=== PATIENT | female | born 1935 | race Caucasian/White ===

== ENCOUNTER 2019-09-20 09:32 | Outpatient (CLI) | payer MEDICARE, SELFPAY ==
--- NOTE | ~2019-09-20 | CT_ITS ---
EXAMINATION: CT abdomen pelvis w con DATE: 09/20/2019 10:23 INDICATION: Malignant neoplasm of cecum. TECHNIQUE: Computed tomography (CT) of the abdomen and pelvis was performed with 100 mL Omnipaque 350 intravenous contrast. Automated exposure control and iterative reconstruction technique were employe d. The dose-length product was 1028.79 mGy-cm. COMPARISON: CT abdomen and pelvis 12/15/2018 FINDINGS: The visualized portions of the lung bases demonstrate mild atelectasis. No pleural effusion . Cardiomegaly is noted. There are coronary artery calcifications. No pericardial effusion. There are cysts in the liver measuring up to 10 mm. There are changes of cholecystectomy. The spleen, pancreas , and adrenal glands are normal. There are two 2 mm stones in right kidney. There are 3 stones in lef t kidney measuring up to 3 mm. There is a 4 mm stone in proximal left ureter. There is diverticulosis of the colon without evidence of diverticulitis. There are changes of right hemicolectomy. There is a small sliding hiatal hernia. There are no pathologically enlarged lymph nodes. There is no free int raperitoneal fluid. There is an old subcapital fracture of left femoral neck with fixation with 3 scr ews. There is lumbar levoscoliosis and severe spondylosis. IMPRESSION: 1. No evidence of metastatic disease. 2. 4 mm stone in proximal left ureter. No hydronephrosis. Small bilateral nonobstructing kidney stone s. Reviewed, dictated and finalized at location A. IMPRESSION: 1. No evidence of metastatic disease. 2. 4 mm stone in proximal left ureter. No hydronephrosis. Small bilateral nonob structing kidney stones.
[2019-09-20 10:10] LABS: Estimated Glomerular Filt Rate > 60
== END 2019-09-20 09:33 | disposition home or self-care (01) ==
PROVIDERS: PCP Family Medicine; Visit Provider Internal Medicine Hematology & Oncology
DX: C18.0 Malignant neoplasm of cecum (principal); N20.1 Calculus of ureter; N20.0 Calculus of kidney
CPT/HCPCS: 36415; 74177; Q9967

== ENCOUNTER 2019-09-26 11:13 | Emergency (ER) | payer MEDICARE, SELFPAY ==
--- NOTE | ~2019-09-26 | XR_ITS ---
XR foot RT min 3V 09/26/2019 11:40 Indication: Right foot pain Procedure: 4 views right foot Comparison: No prior studies for comparison. Findings: There is osteoarthritis of the right first MTP joint. There are third and fourth metatarsal neck fractures. Possible second metatarsal neck fracture. Lisfranc joint intact. Small linear foreig n body in the plantar soft tissues adjacent to the first metatarsal. There are degenerative changes o f the talonavicular joint. Impression: 1: Right third and fourth metatarsal neck fractures. Possible second metatarsal neck fracture. 2: Small linear foreign body plantar soft tissues adjacent to the first metatarsal. Reviewed, dictated and finalized at location B. Impression: 1: Right third and fourth metatarsal neck fractures. Possible second metatarsal neck fracture. 2: Small linear foreign body plantar soft tissues adjacent to the first metatar arabella.
[2019-09-26 11:26] VITALS: BP 124/87; PULSE 89; RESP 16; TEMP 36.5; O2SAT 99
--- NOTE | 2019-09-26 11:47 | ED.LOWEXIN ---
HPI - Extremity Injury (Lower) General Chief Complaint: Extremity Injury, Lower Stated Complaint: Foot injury Time Seen by Provider: 09/26/19 11:37 Source: patient and RN notes reviewed Mode of arrival: ambulatory Limitations: no limitations History of Present Illness HPI Narrative: Patient presents today with an injury to her right foot. She fell 1 week ago while at the hospital when she was getting into her car, injuring her foot. States she did fall onto her buttocks, and is unsure if she twisted her foot. Currently rates her pain 4/10, it increases with walking. Patient has bilateral neuropathy at baseline, which is worse with her current chemotherapy regimen. She has been taking Tylenol with some relief. MD complaint: foot injury Related Data Home Medications Medication Instructions Recorded Confirmed duloxetine 20 mg capsule,delayed 20 mg PO BID 01/17/19 09/26/19 release gabapentin 100 mg capsule 100 mg PO BID 01/17/19 09/26/19 B12 1 adwoa SUBLINGUAL DAILY 02/10/19 09/26/19 Calcium 600 + D(3) 1 cap PO DAILY 02/10/19 09/26/19 cholecalciferol (vitamin D3) 2,000 unit PO DAILY 02/10/19 09/26/19 [Vitamin D3] melatonin 3 mg PO HS 02/10/19 09/26/19 multivitamin 1 tablet PO DAILY 02/10/19 09/26/19 diltiazem HCl [Cartia XT] 240 mg DAILY 09/26/19 09/26/19 Allergies Allergy/AdvReac Type Severity Reaction Status Date / Time ibuprofen Allergy Severe BLEEDING Verified 09/26/19 11:18 ULCER pseudoephedrine AdvReac Mild N/V Verified 09/26/19 11:18 naproxen AdvReac Unknown ULCER Verified 09/26/19 11:18 Review of Systems Review of Systems: Narrative: CONSTITUTIONAL: Denies body aches, fever, chills, or sweats. EYES: Denies visual changes, redness, or discharge. ENT: Denies rhinorrhea, congestion, sore throat, or otalgia. CARDIOVASCULAR: Denies chest pain, palpitations, or edema. RESPIRATORY: Denies cough or dyspnea. GASTROINTESTINAL: Denies abdominal pain, nausea, vomiting, or diarrhea. GENITOURINARY: Denies dysuria or hematuria. SKIN: Denies rash, itching, or wounds. MUSCULOSKELETAL: Denies back pain, or myalgia. + Right foot injury NEUROLOGIC: Denies headache, numbness, tingling, or weakness. PSYCH: Denies depression or anxiety. [facility] Social History Social History Smoking status: Never smoker Second hand tobacco smoke exposure: No Alcohol intake: current Gender identity (if verbalized by the patient): Female Spiritual care concerns: No Comments At time of signature, I have reviewed and agree with nursing past medical, surgical, social and family history unless otherwise noted. Please see nursing chart for further information. There is no relevant family history pertinent to the presenting complaint Exam Narrative: Exam Narrative: GENERAL: Well-appearing, well-nourished, and in no acute distress. HEAD: Normocephalic, atraumatic. EYES: EOMI. No redness or drainage. Conjunctivae normal. ENT: Mucous membranes pink and moist. NECK: Normal AROM. CHEST: No respiratory distress. EXTREMITIES: Right foot: Tenderness to the lateral midfoot with 1+ pitting edema. Patient has ecchymosis to the base of all toes and in the arch of the foot. Distal sensation is intact. Capillary refill normal. Pedal pulse normal. Full AROM of toes and ankle. SKIN: Warm, dry, no rash. Capillary refill normal. Normal skin turgor. NEURO: No focal deficits. Alert and oriented x3. Gait steady with walker PSYCH: Normal affect. No signs of depression or anxiety. Course Vital Signs Vital signs: Vital Signs Temperature 97.7 F 09/26/19 11:26 Pulse Rate 89 09/26/19 11:26 Respiratory Rate 16 09/26/19 11:26 Blood Pressure 124/87 09/26/19 11:26 Pulse Oximetry 99 09/26/19 11:26 Temperature 97.7 F 09/26/19 11:26 Pulse Rate 89 09/26/19 11:26 Respiratory Rate 16 09/26/19 11:26 Blood Pressure 124/87 09/26/19 11:26 Pulse Oximetry 99
== END 2019-09-26 12:15 | disposition home or self-care (01) ==
PROVIDERS: Emergency Provider Nurse Practitioner; PCP Family Medicine
DX: S92.331A Displaced fracture of third metatarsal bone, right foot, initial encounter for closed fracture (principal); S92.341A Displaced fracture of fourth metatarsal bone, right foot, initial encounter for closed fracture; W19.XXXA Unspecified fall, initial encounter; E78.00 Pure hypercholesterolemia, unspecified; I10 Essential (primary) hypertension; M19.90 Unspecified osteoarthritis, unspecified site; Z85.038 Personal history of other malignant neoplasm of large intestine; G62.9 Polyneuropathy, unspecified
CPT/HCPCS: 73630; 99214; G0463

== ENCOUNTER 2019-12-16 01:29 | Outpatient (CLI) | payer MEDICARE, SELFPAY ==
[2019-12-16 17:59] LABS: SARS-CoV-2 RNA PCR Negative
== END 2019-12-16 01:30 | disposition home or self-care (01) ==
LOC: ANHCOVIDDT 01:29
PROVIDERS: PCP Family Medicine; Visit Provider Internal Medicine Gastroenterology
DX: Z01.812 Encounter for preprocedural laboratory examination (principal); Z20.828 Contact with and (suspected) exposure to other viral communicable diseases
CPT/HCPCS: 87635; C9803; U0003

== ENCOUNTER 2019-12-19 00:47 | Day surgery (SDC) | payer MEDICARE, SELFPAY ==
[2019-12-13 09:43] VITALS: BMI 30.6
--- NOTE | 2019-12-17 10:14 | WPDANESEPP ---
Anes - Eval Pre Procedure Procedure: Operation Date: 12/19/19 07:30 Proposed Procedures p Screening Colonoscopy - Sherwin Hein MD Date/Time: 12/17/19 10:14 Pre Op Diagnosis: Neoplasm Screening/Hx Colon Ca Patient Data Age: 84 Gender: F Height: 1.7 m Weight: 88.6 kg Allergies Allergy/AdvReac Type Severity Reaction Status Date / Time ibuprofen Allergy Severe BLEEDING Verified 12/13/19 08:59 ULCER pseudoephedrine AdvReac Mild N/V Verified 12/13/19 08:59 naproxen AdvReac Unknown ULCER Verified 12/13/19 08:59 Home Medications Medication Instructions Recorded Confirmed Type duloxetine 20 mg capsule,delayed 20 mg PO BID 01/17/19 12/13/19 History release ferrous sulfate 325 mg (65 mg 325 mg PO BID #180 tablet 02/07/19 12/13/19 Rx iron) tablet B12 1 adwoa SUBLINGUAL DAILY 02/10/19 12/13/19 History Calcium 600 + D(3) 1 cap PO DAILY 02/10/19 12/13/19 History cholecalciferol (vitamin D3) 2,000 unit PO DAILY 02/10/19 12/13/19 History [Vitamin D3] melatonin 3 mg PO HS 02/10/19 12/13/19 History multivitamin 1 tablet PO DAILY 02/10/19 12/13/19 History diltiazem HCl [Cartia XT] 240 mg DAILY 09/26/19 12/13/19 History pregabalin 100 mg capsule 100 mg PO BID 10/25/19 12/13/19 History atorvastatin 10 mg PO DAILY 12/13/19 12/13/19 History omeprazole magnesium [Prilosec OTC] 20 mg PO DAILY 12/13/19 12/13/19 History ropinirole 0.5 mg PO DAILY 12/13/19 12/13/19 History Patient hx anesthesia problems: none Family hx anesthesia problems: none PMFSH Past Medical History Medical History Arthritis Cataract left Chronic low back pain Constipation Diarrhea Dyslipidemia Glaucoma History of kidney stones History of stress test negative 15 years ago HLD (hyperlipidemia) HTN (hypertension) Idiopathic peripheral neuropathy Osteoarthritis Peptic ulcer 2002 RLS (restless legs syndrome) Shortness of breath Vitamin D deficiency Surgical History Surgical History History of appendectomy History of cholecystectomy Lap ester with IOC- 01-06-19 History of right hemicolectomy Right hemicolectomy with anastomosis distal ileum to transverse colon- 01/06/19 Hx of hysterectomy, total Family History Family History Father Hypertension Family history of cardiovascular disease Mother Family history of cardiovascular disease Sibling Family history of cardiovascular disease Other Arthritis Social History Social History Smoking status: Never smoker Second hand tobacco smoke exposure: No Alcohol intake: never Substance use: never Substance use type: does not use Gender identity (if verbalized by the patient): Female Spiritual care concerns: No Exam Day of Procedure 12/17/19 10:14
[2019-12-19 06:26] VITALS: BP 127/69; PULSE 103; RESP 18; TEMP 36.8; O2SAT 99
[2019-12-19] MEDS: LACTATED RINGERS 1,000 ML 150 ML IV CONT (06:52)
--- NOTE | 2019-12-19 07:06 | WPDANESEPPF ---
Anes - Initial Pre Proc Eval Procedure: Operation Date: 12/19/19 07:30 Proposed Procedures p Screening Colonoscopy - Sherwin Hein MD Date/Time: 12/19/19 07:06 Surgeon: Sherwin Hein MD Pre Op Diagnosis: Neoplasm Screening/Hx Colon Ca Patient Data Age: 84 Gender: F Height: 5 ft 7 in Weight: 95 kg Last Vital Signs Temp 98.2 F 12/19/19 06:26 Pulse 103 H 12/19/19 06:26 Resp 18 12/19/19 06:26 BP 127/69 12/19/19 06:26 Pulse Ox 99 12/19/19 06:26 Allergies Allergy/AdvReac Type Severity Reaction Status Date / Time ibuprofen Allergy Severe BLEEDING Verified 12/19/19 06:24 ULCER pseudoephedrine AdvReac Mild N/V Verified 12/19/19 06:24 naproxen AdvReac Unknown ULCER Verified 12/19/19 06:24 Home Medications Medication Instructions Recorded Confirmed Type duloxetine 20 mg capsule,delayed 20 mg PO BID 01/17/19 12/13/19 History release ferrous sulfate 325 mg (65 mg 325 mg PO BID #180 tablet 02/07/19 12/13/19 Rx iron) tablet B12 1 adwoa SUBLINGUAL DAILY 02/10/19 12/13/19 History Calcium 600 + D(3) 1 cap PO DAILY 02/10/19 12/13/19 History cholecalciferol (vitamin D3) 2,000 unit PO DAILY 02/10/19 12/13/19 History [Vitamin D3] melatonin 3 mg PO HS 02/10/19 12/13/19 History multivitamin 1 tablet PO DAILY 02/10/19 12/13/19 History diltiazem HCl [Cartia XT] 240 mg DAILY 09/26/19 12/13/19 History pregabalin 100 mg capsule 100 mg PO BID 10/25/19 12/13/19 History atorvastatin 10 mg PO DAILY 12/13/19 12/19/19 History omeprazole magnesium [Prilosec OTC] 20 mg PO DAILY 12/13/19 12/13/19 History ropinirole 0.5 mg PO DAILY 12/13/19 12/13/19 History Patient hx anesthesia problems: none Family hx anesthesia problems: none PMFSH Past Medical History Medical History Arthritis Cataract left Chronic low back pain Constipation Diarrhea Dyslipidemia Glaucoma History of kidney stones History of stress test negative 15 years ago HLD (hyperlipidemia) HTN (hypertension) Idiopathic peripheral neuropathy Osteoarthritis Peptic ulcer 2002 RLS (restless legs syndrome) Shortness of breath Vitamin D deficiency Surgical History Surgical History History of appendectomy History of cholecystectomy Lap ester with IOC- 01-06-19 History of right hemicolectomy Right hemicolectomy with anastomosis distal ileum to transverse colon- 01/06/19 Hx of hysterectomy, total Family History Family History Father Hypertension Family history of cardiovascular disease Mother Family history of cardiovascular disease Sibling Family history of cardiovascular disease Other Arthritis Social History Social History Smoking status: Never smoker Second hand tobacco smoke exposure: No Alcohol intake: never Substance use: never Substance use type: does not use Living arrangements: alone Gender identity (if verbalized by the patient): Female Spiritual care concerns: No Anes - Eval Final PreProcedure Day of Procedure 12/19/19 07:06 Patient weight: obese Heart: regular rate and rhythm Lungs: clear to auscultation Airway: Mallampati scale class II Neurological: alert and oriented ASA classification: III Emergent: no Anesthetic plan: proceed Anesthesia type and monitoring: general GIVS and standard monitoring Informed Consent: The patient's anesthetic plan and its attendant risks and benefits were discussed with the patient/family/POA. Questions were solicited and answers provided to the satisfaction of the patient/family/POA.
--- NOTE | 2019-12-19 07:34 | PM.HPGS ---
History of Present Illness History of Present Illness Consent: Risks, benefits, and alternatives have been discussed and questions answered. Patient agrees to proceed with procedure. Chief complaint: Neoplasm Screening/Hx Colon Ca Narrative: Rosy Alexander is a 84 year old female with right sided colon cancer last year s/p surgery and chemotherapy Review of Systems Constitutional: Constitutional: Denies headache(s) and Denies weakness Eyes: Eyes: Denies blurry vision ENT: Reports Normal hearing present, Denies headache(s) and Denies neck pain Cardiovascular: Cardiovascular: Denies chest pain and Denies dyspnea Respiratory: Respiratory: Denies dyspnea Gastrointestinal: Gastrointestinal: Reports no additional gastrointestinal complaints Genitourinary: Genitourinary: Denies dysuria Musculoskeletal: Musculoskeletal: Denies neck pain Integumentary/Breasts: Skin/Breast: Denies dry skin Neurologic: Reports Normal hearing present, Denies headache(s) and Denies weakness Psychiatric: Psychiatric: Denies anxiety Endocrine: Endocrine: Denies change in body appearance Hematologic/Lymphatic: Hematologic/Lymphatic: Denies easy bleeding Allergic/Immunologic: Allergic/Immunologic: Denies urticaria PMFSH Past Medical History Medical History Arthritis Cataract left Chronic low back pain Constipation Diarrhea Dyslipidemia Glaucoma History of kidney stones History of stress test negative 15 years ago HLD (hyperlipidemia) HTN (hypertension) Idiopathic peripheral neuropathy Osteoarthritis Peptic ulcer 2002 RLS (restless legs syndrome) Shortness of breath Vitamin D deficiency Surgical History Surgical History History of appendectomy History of cholecystectomy Lap ester with IOC- 01-06-19 History of right hemicolectomy Right hemicolectomy with anastomosis distal ileum to transverse colon- 01/06/19 Hx of hysterectomy, total Family History Family History Father Hypertension Family history of cardiovascular disease Mother Family history of cardiovascular disease Sibling Family history of cardiovascular disease Other Arthritis Social History Social History Smoking status: Never smoker Second hand tobacco smoke exposure: No Alcohol intake: never Substance use: never Substance use type: does not use Living arrangements: alone Gender identity (if verbalized by the patient): Female Spiritual care concerns: No Meds Home Medications and Allergies Home Medications Medication Instructions Recorded Confirmed Type duloxetine 20 mg capsule,delayed 20 mg PO BID 01/17/19 12/13/19 History release ferrous sulfate 325 mg (65 mg 325 mg PO BID #180 tablet 02/07/19 12/13/19 Rx iron) tablet B12 1 adwoa SUBLINGUAL DAILY 02/10/19 12/13/19 History Calcium 600 + D(3) 1 cap PO DAILY 02/10/19 12/13/19 History cholecalciferol (vitamin D3) 2,000 unit PO DAILY 02/10/19 12/13/19 History [Vitamin D3] melatonin 3 mg PO HS 02/10/19 12/13/19 History multivitamin 1 tablet PO DAILY 02/10/19 12/13/19 History diltiazem HCl [Cartia XT] 240 mg DAILY 09/26/19 12/13/19 History pregabalin 100 mg capsule 100 mg PO BID 10/25/19 12/13/19 History atorvastatin 10 mg PO DAILY 12/13/19 12/19/19 History omeprazole magnesium [Prilosec OTC] 20 mg PO DAILY 12/13/19 12/13/19 History ropinirole 0.5 mg PO DAILY 12/13/19 12/13/19 History Allergies Allergy/AdvReac Type Severity Reaction Status Date / Time ibuprofen Allergy Severe BLEEDING Verified 12/19/19 06:24 ULCER pseudoephedrine AdvReac Mild N/V Verified 12/19/19 06:24 naproxen AdvReac Unknown ULCER Verified 12/19/19 06:24 Vital Signs Vital Signs - 24 hr 12/19/19 06:26 Temperature 98.2 F Pulse Rate 103 H Respiratory Rate 18
[2019-12-19 08:04] VITALS: BP 130/72; PULSE 86; RESP 24; O2SAT 97
[2019-12-19 08:14] VITALS: BP 164/95; PULSE 84; RESP 20; O2SAT 99
[2019-12-19 08:24] VITALS: BP 172/94; PULSE 87; RESP 16; O2SAT 98
== END 2019-12-19 08:36 | disposition home or self-care (01) ==
PROVIDERS: PCP Family Medicine; Visit Provider Internal Medicine Gastroenterology
PROC: 0DJD8ZZ Inspection of Lower Intestinal Tract, Via Natural or Artificial Opening Endoscopic (ICD-10-PCS; CPT 45378; principal; 2019-12-19 07:30)
DX: Z12.11 Encounter for screening for malignant neoplasm of colon (principal); D12.5 Benign neoplasm of sigmoid colon; K57.30 Diverticulosis of large intestine without perforation or abscess without bleeding; Z85.038 Personal history of other malignant neoplasm of large intestine; Z90.49 Acquired absence of other specified parts of digestive tract; Z98.0 Intestinal bypass and anastomosis status; Z92.21 Personal history of antineoplastic chemotherapy; I10 Essential (primary) hypertension; E78.5 Hyperlipidemia, unspecified; H40.9 Unspecified glaucoma; G62.9 Polyneuropathy, unspecified; E55.9 Vitamin D deficiency, unspecified; G25.81 Restless legs syndrome; Z87.11 Personal history of peptic ulcer disease
CPT/HCPCS: 45381; 45385; 88305; J2704; J7120

== ENCOUNTER 2020-04-23 13:26 | Outpatient (CLI) | payer MEDICARE, SELFPAY ==
[2020-04-23 14:34] LABS: Hematocrit 39.4 % (37.0-47.0); Hemoglobin 12.3 g/dL (12.0-15.0); Mean Corpuscular HGB Conc 31.2 g/dl (32-36); Mean Corpuscular Hemoglobin 30.4 pg (26-34); Mean Corpuscular Volume 97.3 fl (80-100); Mean Platelet Volume 10.2 fl (7.4-10.4); Platelet Count Result 253 k/mm3 (150-375); Red Blood Count 4.05 M/mm3 (4.2-5.4); Red Cell Distribution Width 13.8 % (11.5-14.5); White Blood Count 5.9 K/mm3 (4.5-10.0)
[2020-04-23 17:42] LABS: Alanine Aminotransferase 19 U/L (4-35); Albumin Level 3.7 g/dL (3.5-5.1); Alkaline Phosphatase 140 U/L (38-126); Anion Gap 5 mmol/L (8-16); Aspartate Amino Transferase 31 U/L (14-36); Bilirubin,Total 0.5 mg/dL (0.2-1.3); Blood Urea Nitrogen 16 mg/dL (7-17); Calcium 9.3 mg/dL (8.4-10.2); Carbon Dioxide 29 mmol/L (22-30); Chloride 109 mmol/L (98-107); Cholesterol 162 mg/dL (0-200); Estimated Glomerular Filt Rate > 60; Glucose 93 mg/dL (65-105); HDL Direct 48 mg/dL; Potassium 4.6 mmol/L (3.4-5.0); Sodium 143 mmol/L (137-145); Triglycerides 171 mg/dL (<150)
[2020-04-23 17:53] LABS: LDL Cholesterol Direct 83 mg/dL
== END 2020-04-23 13:27 | disposition home or self-care (01) ==
LOC: ANHLAB 13:28
PROVIDERS: PCP Family Medicine; Visit Provider Nurse Practitioner Family
DX: E78.5 Hyperlipidemia, unspecified (principal); I10 Essential (primary) hypertension
CPT/HCPCS: 36415; 80053; 80061; 85027

== ENCOUNTER 2020-09-13 14:06 | Emergency (ER) | payer MEDICARE, SELFPAY ==
--- NOTE | ~2020-09-13 | XR_ITS ---
EXAMINATION: XR ankle LT min 3V DATE: 09/13/2020 15:14 INDICATION: Left ankle pain, initial encounter TECHNIQUE: Anteroposterior, lateral, mortise, and additional oblique view of the ankle were obtained. COMPARISON: None. FINDINGS: There is an acute, traumatic, closed, oblique fracture of the distal fibula which ends appr oximately 1.5 cm above the tibial plafond. Alignment at the ankle is normal. No additional acute osse ous abnormality is identified. Soft tissue swelling is seen at the fracture site. Calcified atheroscl erosis is noted. There is advanced osteoarthritis of the midfoot. IMPRESSION: 1. Acute, oblique fracture of the distal fibula above the level of the tibial plafond. Reviewed, dictated and finalized at location B. IMPRESSION: 1. Acute, oblique fracture of the distal fibula above the level of the tibial p inder.
[2020-09-13 14:15] VITALS: BP 109/48; PULSE 67; RESP 17; TEMP 35.9; O2SAT 97
--- NOTE | 2020-09-13 15:22 | ED.LOWEXIN ---
HPI - Extremity Injury (Lower) General Chief Complaint: Extremity Injury, Lower Stated Complaint: Left foot and ankle pain Time Seen by Provider: 09/13/20 14:49 Source: patient, family and RN notes reviewed Mode of arrival: wheelchair Limitations: no limitations History of Present Illness HPI Narrative: Patient and daughter present today complaining of left ankle pain. Patient fell just prior to arrival while coming down a curb. Reports her legs folded underneath her as she fell. Denies numbness or tingling in the leg or foot. Rates her pain 4/10, which increases with movement or touching. History of restless leg syndrome, neuropathy, previous hip fracture. MD complaint: ankle injury Related Data Home Medications Medication Instructions Recorded Confirmed duloxetine 20 mg capsule,delayed 20 mg PO BID 01/17/19 04/22/20 release B12 1 adwoa SUBLINGUAL DAILY 02/10/19 04/22/20 Calcium 600 + D(3) 1 cap PO DAILY 02/10/19 04/22/20 cholecalciferol (vitamin D3) 2,000 unit PO DAILY 02/10/19 04/22/20 [Vitamin D3] melatonin 3 mg PO HS 02/10/19 04/22/20 multivitamin 1 tablet PO DAILY 02/10/19 04/22/20 pregabalin 100 mg capsule 100 mg PO BID 10/25/19 04/22/20 omeprazole magnesium [Prilosec OTC] 20 mg PO DAILY 12/13/19 04/22/20 diltiazem HCl [Cartia XT] 1 mg PO DAILY 09/13/20 09/13/20 ropinirole 1 mg PO TID 09/13/20 09/13/20 Allergies Allergy/AdvReac Type Severity Reaction Status Date / Time ibuprofen Allergy Severe BLEEDING Verified 09/13/20 14:28 ULCER pseudoephedrine AdvReac Mild N/V Verified 09/13/20 14:28 naproxen AdvReac Unknown ULCER Verified 09/13/20 14:28 Review of Systems Review of Systems: Narrative: CONSTITUTIONAL: Denies body aches, fever, chills, or sweats. EYES: Denies visual changes, redness, or discharge. ENT: Denies rhinorrhea, congestion, sore throat, or otalgia. CARDIOVASCULAR: Denies chest pain, palpitations, or edema. RESPIRATORY: Denies cough or dyspnea. GASTROINTESTINAL: Denies abdominal pain, nausea, vomiting, or diarrhea. GENITOURINARY: Denies dysuria or hematuria. SKIN: Denies rash, itching, or wounds. MUSCULOSKELETAL: Denies back pain, or myalgia. + Left ankle injury NEUROLOGIC: Denies headache, numbness, tingling, or weakness. PSYCH: Denies depression or anxiety. [facility] Past Medical History Medical History Arthritis Cataract left Chronic low back pain Constipation Diarrhea Dyslipidemia Frequent falls Glaucoma History of kidney stones History of stress test negative 15 years ago HLD (hyperlipidemia) HTN (hypertension) Idiopathic peripheral neuropathy Osteoarthritis Peptic ulcer 2002 RLS (restless legs syndrome) Shortness of breath Stress incontinence Vitamin D deficiency Surgical History Surgical History History of appendectomy History of cholecystectomy Lap ester with IOC- 01-06-19 History of right hemicolectomy Right hemicolectomy with anastomosis distal ileum to transverse colon- 01/06/19 Hx of hysterectomy, total Family History Family History Father Hypertension Family history of cardiovascular disease Mother Family history of cardiovascular disease Sibling Family history of cardiovascular disease Other Arthritis Social History Social History Smoking status: Never smoker Second hand tobacco smoke exposure: No Alcohol intake: never Substance use: never Substance use type: does not use Gender identity (if verbalized by the patient): Female Spiritual care concerns: No Comments At time of signature, I have reviewed and agree with nursing past medical, surgical, social and family history unless otherwise noted. Please see nursing chart for further information. There is no relevant family history mario
== END 2020-09-13 15:43 | disposition home or self-care (01) ==
PROVIDERS: Emergency Provider Nurse Practitioner; PCP Family Medicine
DX: S82.832A Other fracture of upper and lower end of left fibula, initial encounter for closed fracture (principal); W10.1XXA Fall (on)(from) sidewalk curb, initial encounter; M19.90 Unspecified osteoarthritis, unspecified site; E78.5 Hyperlipidemia, unspecified; I10 Essential (primary) hypertension; G60.9 Hereditary and idiopathic neuropathy, unspecified; E55.9 Vitamin D deficiency, unspecified
CPT/HCPCS: 73610; 99213; G0463

== ENCOUNTER 2020-09-19 19:14 | Inpatient (IN) | payer MEDICARE, SELFPAY ==
--- NOTE | ~2020-09-19 | XR_ITS ---
EXAMINATION: XR surgery orthopedic DATE: 09/21/2020 09:54 INDICATION: Distal left fibula fracture. TECHNIQUE: 7 intraoperative fluoroscopic views of left ankle were obtained. I was not present. Fluoro scopy exposure time was 50 seconds. COMPARISON: Left ankle radiographs 09/13/2020 FINDINGS: There is an oblique fracture of distal fibula with internal fixation with semitubular plate and multiple screws. There is a syndesmosis fixation band. Ankle mortise is normal. IMPRESSION: 1. Oblique fracture of distal fibula in near-anatomic alignment status post open reduction internal f ixation. 2. Internal fixation of the tibiofibular syndesmosis. Reviewed, dictated and finalized at location A. IMPRESSION: 1. Oblique fracture of distal fibula in near-anatomic alignment status post ope n reduction internal fixation. 2. Internal fixation of the tibiofibular syndesmosis.
--- NOTE | ~2020-09-19 | XR_ITS ---
XR chest 1V portable 09/19/2020 20:32 Indication: Preop x-ray. Hypertension. Reflux. Procedure: AP portable chest Comparison: Comparison to multiple prior studies sequentially, with oldest reviewed study dated 08/28. Findings: Portacatheter tip in the SVC. Heart size is normal. Right basilar infiltrates. No pleural e ffusion, edema or pneumothorax. Calcified granuloma left upper lung. Impression: 1: Right basilar infiltrates may represent atelectasis or developing pneumonia. Reviewed, dictated and finalized at location A. Impression: 1: Right basilar infiltrates may represent atelectasis or developing pneumonia.
--- NOTE | 2020-09-19 19:03 | ADMGEN ---
This patient, Rosy Alexander, was admitted to Medical Room 254-01. Patient/family oriented to hospital policies and general routines including ID bracelet, bed and alarms, visiting hours, pain management, procedures, bathroom and other care routines, personal items, smoking policy, room service/diet, and visiting hours. Information on how to activate the Rapid Response Team has been discussed. Patient/Family are encouraged to report perceived risks to care and to ask questions if they do not understand what they are told or what they should do.
--- NOTE | 2020-09-19 19:45 | PM.IMHP ---
H&P: HPI History of Present Illness Date/Time: 09/19/20 19:45 Chief Complaint: Unstable left ankle fracture. Narrative: This is an 85-year-old female with history of colon cancer in 2019 status post partial colectomy and chemotherapy, GERD with history of peptic ulcer disease, iron deficiency anemia, idiopathic peripheral neuropathy, restless leg syndrome, dyslipidemia, and hypertension whom the hospitalist service has been asked to directly admit after she was found to have an unstable left ankle fracture. She was seen at [facility] on 09/13/2020 with complaints of left ankle pain after she lost her balance and fell off of a curb. X-ray showed an acute, oblique fracture of the distal fibula above the level of the tibial plafond and at that time she was told to proceed to [facility] to purchase a walking boot until she could follow-up with Dr. Sin in the office. She has been bearing weight on that ankle since that time, and reports quite a bit of pain and swelling at the site. Today she finally got an appointment with Dr. Sin and she is now being admitted due to an unstable fracture. Her pain has been well controlled with Tylenol at home. She denies any other injury in the fall. No paresthesias, skin color, or temperature changes of the affected extremity. Review of Systems Review of Systems: Narrative: Twelve systems were reviewed with pertinent positives and negatives as per HPI. Patient reports having an episode of chest pain about 15 years ago while walking up a hill and had a subsequent cardiac catheterization done at [facility] due to an abnormal stress test. At that time the patient was told she had minimal to no blockage in her coronaries and she has not had any issues with chest pain since that time. She specifically denies exertional chest pain and shortness of breath. No nausea, vomiting, or sweats. No orthopnea, PND, or significant lower extremity edema. She has not had any recent cold or flu symptoms. She is fully vaccinated for COVID-19. Except as documented, all other systems were reviewed and are negative. [facility] Past Medical History Medical History Arthritis Cataract left Chronic anemia Chronic low back pain Colon cancer (12/2018) Status post partial colectomy and chemotherapy. Dyslipidemia Frequent falls Gastroesophageal reflux disease Glaucoma History of kidney stones History of stress test Negative stress test around 2004. Hypertension Idiopathic peripheral neuropathy Osteoarthritis Peptic ulcer (2002) Restless leg syndrome Stress incontinence Vitamin D deficiency Surgical History Surgical History (Updated 09/19/20 @ 20:05 by Orin Arce PA-C) History of appendectomy History of cholecystectomy (01/06/19) Laparoscopic cholecystectomy with IOC. History of lithotripsy History of orthopedic surgery Pinning left hip fracture. History of right hemicolectomy (01/06/19) Right hemicolectomy with anastomosis distal ileum to transverse colon. History of total hysterectomy Family History Family History Father Hypertension Family history of cardiovascular disease Mother Family history of cardiovascular disease Sibling Family history of cardiovascular disease Other Arthritis Social History Social History (Updated 09/19/20 @ 22:45 by Orin Arce PA-C) Social History: Surrogate decision maker: Daphne Kelly, daughter. Code status: Full code. Smoking status: Never smoker Second hand tobacco smoke exposure: No Alcohol intake: never Substance use: never Substance use type: does not use Additional living arrangements comments: The patient lives in her own home in [place]. 2 grown children. Additional occupation/education comments: Retired. Meds Home Medications and Allergies Home Medications Medica
--- NOTE | 2020-09-19 20:11 | ECG_ITS ---
Measurements Intervals [place] Rate: 79 P: 62 [place]: 191 QRS: -12 QRSD: 85 T: 19 QT: 396 QTc: 455 Interpretive Statements SINUS RHYTHM EARLY PRECORDIAL R/S TRANSITION LEFT VENTRICULAR HYPERTROPHY BORDERLINE ECG Electronically Signed On 09-20-2020 6:28:30 CDT by Cruz Barragan D.O.
[2020-09-19 20:19] VITALS: BP 163/74; PULSE 80; RESP 20; TEMP 36.1; O2SAT 100
[2020-09-19 21:42] LABS: Hematocrit 41.4 % (37.0-47.0); Hemoglobin 12.8 g/dL (12.0-15.0); Mean Corpuscular HGB Conc 30.9 g/dl (32-36); Mean Corpuscular Hemoglobin 30.2 pg (26-34); Mean Corpuscular Volume 97.6 fl (80-100); Mean Platelet Volume 11.2 fl (7.4-10.4); Platelet Count Result 240 k/mm3 (150-375); Red Blood Count 4.24 M/mm3 (4.2-5.4); Red Cell Distribution Width 14.3 % (11.5-14.5); White Blood Count 6.6 K/mm3 (4.5-10.0)
[2020-09-19 21:53] LABS: Alanine Aminotransferase 139 U/L (4-35); Albumin Level 4.1 g/dL (3.5-5.1); Alkaline Phosphatase 306 U/L (38-126); Anion Gap 4 mmol/L (8-16); Aspartate Amino Transferase 104 U/L (14-36); Bilirubin,Total 0.8 mg/dL (0.2-1.3); Blood Urea Nitrogen 16 mg/dL (7-17); Calcium 9.3 mg/dL (8.4-10.2); Carbon Dioxide 32 mmol/L (22-30); Chloride 104 mmol/L (98-107); Estimated Glomerular Filt Rate > 60; Glucose 107 mg/dL (65-105); Magnesium 2.1 mg/dL (1.6-2.3); Potassium 3.8 mmol/L (3.4-5.0); Sodium 140 mmol/L (137-145)
[2020-09-19] MEDS: MELATONIN 3 MG TABLET PO (21:57)
[2020-09-19 23:30] LABS: Acetaminophen < 10 ug/mL (10-30)
[2020-09-20 05:13] VITALS: BP 145/61; PULSE 69; RESP 22; TEMP 36.5; O2SAT 95
[2020-09-20 05:57] LABS: INR 1.1; Partial Thromboplastin Time 29.2 SECONDS (22.3-36.8); Prothrombin Time 13.6 Seconds (11.1-14.7)
[2020-09-20 05:58] LABS: Alanine Aminotransferase 99 U/L (4-35); Albumin Level 3.5 g/dL (3.5-5.1); Alkaline Phosphatase 255 U/L (38-126); Anion Gap 6 mmol/L (8-16); Aspartate Amino Transferase 65 U/L (14-36); Bilirubin,Total 0.7 mg/dL (0.2-1.3); Blood Urea Nitrogen 17 mg/dL (7-17); Calcium 8.8 mg/dL (8.4-10.2); Carbon Dioxide 29 mmol/L (22-30); Chloride 104 mmol/L (98-107); Estimated Glomerular Filt Rate > 60; Glucose 97 mg/dL (65-105); Potassium 4.2 mmol/L (3.4-5.0); Sodium 139 mmol/L (137-145)
--- NOTE | 2020-09-20 07:09 | PM.CNOR ---
Assessment and Plan Additional Plan Patient is non stable left lateral malleolus fracture. Again this needs to be fixed surgically because of the instability. This point patient is in a Cam walker boot and she is at bedrest only get up to use a bedside commode. We are going to work on getting his swelling down. Also have her evaluated by the hospitalist as well as Cardiology surgical clearance. Once the swelling is improved to the point would be safe to proceed we will work on getting surgery done on the ankle. Patient is going to need rehabilitation facility after surgery. We will work on this as well. Surgical procedures well as the risks and complications were discussed at our office on 09/[address] Sin. History of Present Illness HPI Consult date: 09/20/20 Chief complaint: Unstable Ankle Fx LT PMFSH Past Medical History Medical History Arthritis Cataract left Chronic anemia Chronic low back pain Colon cancer (12/2018) Status post partial colectomy and chemotherapy. Dyslipidemia Frequent falls Gastroesophageal reflux disease Glaucoma History of kidney stones History of stress test Negative stress test around 2004. Hypertension Idiopathic peripheral neuropathy Osteoarthritis Peptic ulcer (2002) Restless leg syndrome Stress incontinence Vitamin D deficiency Surgical History Surgical History (Updated 09/19/20 @ 20:05 by Orin Arce PA-C) History of appendectomy History of cholecystectomy (01/06/19) Laparoscopic cholecystectomy with IOC. History of lithotripsy History of orthopedic surgery Pinning left hip fracture. History of right hemicolectomy (01/06/19) Right hemicolectomy with anastomosis distal ileum to transverse colon. History of total hysterectomy Family History Family History Father Hypertension Family history of cardiovascular disease Mother Family history of cardiovascular disease Sibling Family history of cardiovascular disease Other Arthritis Social History Social History (Updated 09/19/20 @ 22:45 by Orin Arce PA-C) Social History: Surrogate decision maker: Daphne Kelly, daughter. Code status: Full code. Smoking status: Never smoker Second hand tobacco smoke exposure: No Alcohol intake: never Substance use: never Substance use type: does not use Additional living arrangements comments: The patient lives in her own home in [place]. 2 grown children. Additional occupation/education comments: Retired. Meds Home Medications and Allergies Home Medications Medication Instructions Recorded Confirmed Type duloxetine 20 mg capsule,delayed 20 mg PO BID 01/17/19 09/19/20 History release B12 1 adwoa SUBLINGUAL DAILY 02/10/19 09/19/20 History Calcium 600 + D(3) 1 cap PO DAILY 02/10/19 09/19/20 History cholecalciferol (vitamin D3) 2,000 unit PO DAILY 02/10/19 09/19/20 History [Vitamin D3] melatonin 3 mg PO HS 02/10/19 09/19/20 History multivitamin 1 tablet PO DAILY 02/10/19 09/19/20 History pregabalin 100 mg capsule 100 mg PO BID 10/25/19 09/19/20 History omeprazole magnesium [Prilosec OTC] 20 mg PO DAILY 12/13/19 09/19/20 History ferrous sulfate 325 mg (65 mg 325 mg PO DAILY #90 tablet 05/16/20 09/19/20 Rx iron) tablet oxybutynin chloride 10 mg 10 mg PO DAILY #90 tablet 08/20/20 09/19/20 Rx tablet,extended release 24 hr diltiazem HCl [Cartia XT] 1 mg PO DAILY 09/13/20 09/19/20 History ropinirole 1 mg PO TID 09/13/20 09/19/20 History atorvastatin 10 mg PO DAILY 09/19/20 09/19/20 History Allergies Allergy/AdvReac Type Severity Reaction Status Date / Time ibuprofen Allergy Severe BLEEDING Verified 09/13/20 14:28 ULCER pseudoephedrine AdvReac Mild N/V Verified 09/13/20 14:28 naproxen AdvReac Unknown ULCER Verified 09/13/20 14:28 Vital Signs Vital Signs - 24 hr 09/19/20 20:19 09/20/20
--- NOTE | 2020-09-20 07:17 | P.PNOP_ITS ---
Progress Note: A&P Additional Plan Patient was seen this morning. His swelling has significantly improved already in the left foot and ankle. She has wrinkling in the dorsum of the foot. The swelling in the toes is completely gone. She only has mild swelling in the ankle. She is having minimal to no pain while she is lying supine. Leg was elevated well. Have consult Cardiology for pre-surgical clearance. I will discuss with Dr. Sin this morning, concerning the significant improvement of the swelling in her foot ankle. Also skin is all intact around her ankle. There is no blistering noted. Subjective Subjective Date/Time Seen: 09/20/20 07:17 Objective Data Vital Signs Vital Signs: Vital Signs - 24 hr 09/19/20 20:19 09/20/20 05:13 Temperature 36.1 C L 36.5 C Pulse Rate 80 69 Respiratory Rate 20 22 H Blood Pressure 163/74 H 145/61 H Pulse Oximetry 100 95 Intake/Output Intake/Output: Intake & Output 09/17/20 09/18/20 09/19/20 09/20/20 23:59 23:59 23:59 23:59 Intake Total 300 Balance 300 Meds/Results Medications: Active Medications Generic Name Dose Route Start Last Admin Trade Name Freq PRN Reason Stop Dose Admin Atorvastatin Calcium 10 mg 09/20/20 21:00 Atorvastatin 10 Mg Tablet PO HS [facility] Calcium Carbonate 500 mg 09/20/20 09:00 Calcium/Vitamin D 500 Mg Tablet PO 10/20/20 09:01 DAILY [facility] Diltiazem HCl 240 mg 09/20/20 09:00 Diltiazem Hcl Cd 240 Mg Cap.Er.24h PO DAILY [facility] Duloxetine HCl 20 mg 09/20/20 09:00 Duloxetine Hcl 20 Mg Capsule.Dr PO Q12HR [facility] Enoxaparin Sodium 40 mg 09/20/20 09:00 Enoxaparin 40 Mg/0.4 Ml Syringe SUB-Q DAILY [facility] Ferrous Sulfate 324 mg 09/20/20 09:00 Ferrous Sulfate 324 Mg Tablet PO DAILY [facility] Melatonin 3 mg 09/19/20 21:00 09/19/20 21:57 Melatonin 3 Mg Tablet PO 3 mg HS [facility] Administration Multivitamins Therapeutic 1 tablet 09/20/20 09:00 Multivitamins Therapeutic Tab (*Bkc) PO DAILY [facility] Non-Formulary Medication 1 lozenge 09/20/20 09:00 Cyanocobalamin-Cobamamide [B12] SUBLINGUAL 10/20/20 09:01 DAILY [facility] Oxybutynin Chloride 10 mg 09/20/20 09:00 Oxybutynin Chloride Xl 5 Mg Tab.Er.24 PO DAILY [facility] Pantoprazole Sodium 40 mg 09/20/20 09:00 Pantoprazole 40 Mg Tablet PO 10/20/20 09:01 DAILY [facility] Pregabalin 100 mg 09/20/20 09:00 Pregabalin (*Crx) 50 Mg Capsule PO BID [facility] Ropinirole HCl 1 mg 09/20/20 09:00 Ropinirole Hcl 1 Mg Tablet PO TID [facility] Vitamin D 2,000 units 09/20/20 09:00 Cholecalciferol 1,000 Units Tablet PO DAILY [facility] Radiology Results: ITS Impressions Chest X-Ray 09/19/20 20:34 Impression: 1: Right basilar infiltrates may represent atelectasis or developing pneumonia. Labs Labs: Laboratory Results - last 24 hr 09/19/20 09/19/20 09/19/20 21:09 21:09 21:09 WBC 6.6 RBC 4.24 Hgb 12.8 Hct 41.4 MCV 97.6 MCH 30.2 MCHC 30.9 L
--- NOTE | 2020-09-20 07:17 | PM.PNORT ---
Progress Note: A&P Additional Plan Patient was seen this morning. His swelling has significantly improved already in the left foot and ankle. She has wrinkling in the dorsum of the foot. The swelling in the toes is completely gone. She only has mild swelling in the ankle. She is having minimal to no pain while she is lying supine. Leg was elevated well. Have consult Cardiology for pre-surgical clearance. I will discuss with Dr. Sin this morning, concerning the significant improvement of the swelling in her foot ankle. Also skin is all intact around her ankle. There is no blistering noted. Subjective Subjective Date/Time Seen: 09/20/20 07:17 Objective Data Vital Signs Vital Signs: Vital Signs - 24 hr 09/19/20 20:19 09/20/20 05:13 Temperature 36.1 C L 36.5 C Pulse Rate 80 69 Respiratory Rate 20 22 H Blood Pressure 163/74 H 145/61 H Pulse Oximetry 100 95 Intake/Output Intake/Output: Intake & Output 09/17/20 09/18/20 09/19/20 09/20/20 23:59 23:59 23:59 23:59 Intake Total 300 Balance 300 Meds/Results Medications: Active Medications Generic Name Dose Route Start Last Admin Trade Name Freq PRN Reason Stop Dose Admin Atorvastatin Calcium 10 mg 09/20/20 21:00 Atorvastatin 10 Mg Tablet PO HS [facility] Calcium Carbonate 500 mg 09/20/20 09:00 Calcium/Vitamin D 500 Mg Tablet PO 10/20/20 09:01 DAILY [facility] Diltiazem HCl 240 mg 09/20/20 09:00 Diltiazem Hcl Cd 240 Mg Cap.Er.24h PO DAILY [facility] Duloxetine HCl 20 mg 09/20/20 09:00 Duloxetine Hcl 20 Mg Capsule.Dr PO Q12HR [facility] Enoxaparin Sodium 40 mg 09/20/20 09:00 Enoxaparin 40 Mg/0.4 Ml Syringe SUB-Q DAILY [facility] Ferrous Sulfate 324 mg 09/20/20 09:00 Ferrous Sulfate 324 Mg Tablet PO DAILY [facility] Melatonin 3 mg 09/19/20 21:00 09/19/20 21:57 Melatonin 3 Mg Tablet PO 3 mg HS [facility] Administration Multivitamins Therapeutic 1 tablet 09/20/20 09:00 Multivitamins Therapeutic Tab (*Bkc) PO DAILY [facility] Non-Formulary Medication 1 lozenge 09/20/20 09:00 Cyanocobalamin-Cobamamide [B12] SUBLINGUAL 10/20/20 09:01 DAILY [facility] Oxybutynin Chloride 10 mg 09/20/20 09:00 Oxybutynin Chloride Xl 5 Mg Tab.Er.24 PO DAILY [facility] Pantoprazole Sodium 40 mg 09/20/20 09:00 Pantoprazole 40 Mg Tablet PO 10/20/20 09:01 DAILY [facility] Pregabalin 100 mg 09/20/20 09:00 Pregabalin (*Crx) 50 Mg Capsule PO BID [facility] Ropinirole HCl 1 mg 09/20/20 09:00 Ropinirole Hcl 1 Mg Tablet PO TID [facility] Vitamin D 2,000 units 09/20/20 09:00 Cholecalciferol 1,000 Units Tablet PO DAILY [facility] Radiology Results: ITS Impressions Chest X-Ray 09/19/20 20:34 Impression: 1: Right basilar infiltrates may represent atelectasis or developing pneumonia. Labs Labs: Laboratory Results - last 24 hr 09/19/20 09/19/20 09/19/20 21:09 21:09 21:09 WBC 6.6 RBC 4.24 Hgb 12.8 Hct 41.4 MCV 97.6 MCH 30.2 MCHC 30.9 L RDW 14.3 Plt Count 240 MPV 11.2 H PT INR APTT Sodium 140 Potassium 3.8 Chloride 104 Carbon Dioxide 32 H Anion Gap 4 L BUN 16 Creatinine 0.70 Estim Creat Clear Calc Not Reportable Estimated GFR > 60 Glucose 107 H Calcium 9.3 Magnesium 2.1 Total Bilirubin 0.8 AST 104 H ALT 139 H Alkaline Phosphatase 306 H Total Protein 7.0 Albumin 4.1 Acetaminophen 09/19/20 09/20/20 09/20/20 23:03 05:03 05:03 WBC RBC Hgb Hct MCV MCH MCHC RDW Plt Count MPV PT 13.6 INR 1.1 APTT 29.2 Sodium 139 Potassium 4.2 Chloride 104 Carbon Dioxide 29 Anion Gap 6 L BUN 17 Creatinine 0.70 Estim Creat Clear Calc Not Reportable Estimated GFR > 60 Glucose 97 Calcium 8.8 Magnesium Total Bilirubin 0.7 AST 65 H ALT 99 H Alkaline Phosphatase 255 H Total Protein 6.0 L A
--- NOTE | 2020-09-20 08:31 | ECHO_ITS ---
Patient Info Name: Rosy Alexander Age: 85 years : 1935 Gender: Female Ht: 67 in Wt: 200 lbs BSA: 2.10 m2 HR: 74 bpm BP: 145 / 61 mmHg Technical Quality: Good Exam Date: 09/20/2020 10:22 AM Exam Location: [facility] Pulmonary Exam Room: 254 Patient Status: Inpatient Admit Date: 09/19/2020 Staff Ordering Physician: Fede Berry MD (nolvia/raffaele) Rounding Machine Tender: Brenda Barrios RDCS Attending Provider: Deidra Knight MD Exam Type: CA echo doppler color flow Study Info Complete two-dimensional, color flow and Doppler transthoracic echocardiogram is performed. Summary 1. Complete two-dimensional, color flow and Doppler transthoracic echocardiogram is performed. 2. Technically difficult study with limited views. 3. Left ventricular chamber dimension is normal. 4. Left ventricular wall thickness is borderline increased. 5. Left ventricular systolic function is normal with an ejection fraction by Biplane Method of Discs of 61 %. 6. The left ventricular diastolic function is grade I diastolic dysfunction. Left Ventricle Left ventricular chamber dimension is normal. Left ventricular wall thickness is borderline increased. Left ventricular systolic function is normal with an ejection fraction by Biplane Method of Discs of 61 %. The left ventricular diastolic function is grade I diastolic dysfunction. Right Ventricle Right ventricular chamber dimension is normal. Right ventricular systolic function is normal. Ventricular Septum Intact interventricular septum visualized by 2D imaging. Left Atria Left atrial chamber dimension is mildly enlarged. Right Atria Right atrial chamber dimension is normal. Atrial Septum Interatrial septum not well visualized by 2D imaging. Aortic Valve There is mild aortic valve sclerosis. There is trace aortic valve regurgitation. There is no aortic valve stenosis. Pulmonic Valve Pulmonary valve is not well visualized. There is trace pulmonic regurgitation. There is no pulmonic valve stenosis. Mitral Valve There is trace mitral valve regurgitation. Mild thickening of the mitral valve. There is no mitral valve stenosis. Tricuspid Valve There is trace tricuspid valve regurgitation. Estimated pulmonary arterial systolic pressure is 29 mmHg. The tricuspid valve is not well visualized. There is no significant tricuspid valve stenosis. Pericardium/Pleural Pericardium is normal in appearance with no evidence for significant pericardial effusion. Inferior Vena Cava Normal inferior vena cava with <50% collapse upon inspiration consistent with elevated right atrial pressure, 10 mmHg. Left Ventricular Outflow Tract Name Value Normal LVOT 2D LVOT Diameter 2.0 cm LVOT Doppler LVOT Peak Gradient 4 mmHg LVOT Mean Gradient 3 mmHg LVOT VTI 23 cm LVOT VTI/AV VTI Ratio 0.7 LVOT Stroke Volume 71 ml LVOT CO 14.3 l/min LVOT CI 6.8 l/min/m2
[2020-09-20] MEDS: MULTIVITAMINS THERAPEUTIC TAB (*BKC) 1 TABLET PO (08:56)
[2020-09-20] MEDS: CHOLECALCIFEROL 1,000 UNITS TABLET 2000 UNITS PO (08:56)
[2020-09-20] MEDS: DULoxetine HCL 20 MG CAPSULE.DR PO ×2 (08:56→20:07)
[2020-09-20] MEDS: rOPINIRole HCL 1 MG TABLET PO ×3 (08:57→17:21)
[2020-09-20] MEDS: FERROUS SULFATE 324 MG TABLET PO (08:57)
[2020-09-20] MEDS: PANTOPRAZOLE 40 MG TABLET PO (08:57)
[2020-09-20] MEDS: PREGABALIN (*CRX) 50 MG CAPSULE 100 MG PO ×2 (08:59→17:21)
[2020-09-20 11:57] VITALS: BMI 36.1
[2020-09-20 14:00] VITALS: BP 110/70; PULSE 72; RESP 12; TEMP 36.3; O2SAT 97
--- NOTE | 2020-09-20 16:16 | PM.IMPN ---
Progress Note: A&P Assessment and Plan (1) Closed left ankle fracture: Code(s): S82.892A - Other fracture of left lower leg, initial encounter for closed fracture Status: Acute Assessment and Plan: unstable left ankle fracture sustained in a mechanical fall on 09/13/2020 management per orthopedic surgery continue nonweightbearing status at this time planning for surgical repair tomorrow analgesics available as needed (2) Hypertension: Code(s): I10 - Essential (primary) hypertension Status: Acute Assessment and Plan: blood pressure reviewed and has been Generally well controlled, somewhat elevated at times which is likely due to pain. Last BP 145/61 continue diltiazem monitor BP trends (3) Chronic anemia: Code(s): D64.9 - Anemia, unspecified Status: Acute Assessment and Plan: hemoglobin and hematocrit are stable. Continue p.o. ferrous sulfate (4) Gastroesophageal reflux disease: Code(s): K21.9 - Gastro-esophageal reflux disease without esophagitis Status: Acute Assessment and Plan: no acute issues at this time continue Protonix (5) Idiopathic peripheral neuropathy: Code(s): G60.9 - Hereditary and idiopathic neuropathy, unspecified Status: Acute Assessment and Plan: stable with no acute issues continue Lyrica and ropinirole (6) Transaminitis: Code(s): R74.01 - Elevation of levels of liver transaminase levels Status: Acute Assessment and Plan: Improved today compared to admission. Etiologie for this is unclear at this time. Total bilirubin within normal limits. Trend LFTs consider further evaluation based on progression (7) Constipation: Code(s): K59.00 - Constipation, unspecified Status: Acute Assessment and Plan: One time dulcolax suppository Miralax and colace scheduled Subjective Date/time seen: 09/20/20 16:16 Interval history: Date of service: 09/19/20 Rosy Alexander is an 85 year old female with a history of anemia, colon cancer, HTN, RLS, and peptic ulcer who is seen in follow up for acute left ankle fracture.She is feeling well today. Her pain is well controlled. At rest she has no pain. With movement she rates her pain as 3/10. She has complained of abdominal bloating and constipation. Her last bowel movement was 2 days ago. she has been eating well. She denies nausea or vomiting. Denies urinary symptoms. She complains of neuropathy in her bilateral upper and lower extremities. She denies dizziness or lightheadedness. No shortness breath, cough, or chest pain. She has no additional concerns at this time and is in good spirits. Review of Systems Review of Systems: All systems reviewed & are unremarkable except as noted in HPI and below Exam Narrative: Exam Narrative: Ms. Alexander is a well-nourished, well-appearing 85-year-old female who is lying semi recumbent in bed. she appears comfortable and is in NARD. Neuro: awake, alert and oriented x4, speech clear, no focal neuro deficits noted HEENMT: normocephalic, atraumatic, EOMI, sclerae anicteric, moist oral mucosa Neck: supple, no lymphadenopathy Respiratory: clear to auscultation bilaterally, nonlabored breathing Cardio: regular rate, regular rhythm with S1-S2 Abdomen: protuberant, normoactive bowel sounds, soft, nontender to palpation, no rigidity or guarding Extremities: Left foot is in boot. Toes are visible. She is able to wiggle her toes. She has brisk capillary refill bilaterally. Right lower extremity without edema, erythema, or tenderness to palpation, right DP pulse 2+ Skin: no rashes or lesions, warm and dry Psych: appropriate mood and affect, judgment and insight intact Objective Data Vital Signs Vital Signs: Vital Signs - 24 hr 09/19/20 20:19 09/20/20 05:13 Temperature 97 F L 97.7 F Pulse Rate 80 69 Respiratory R
--- NOTE | 2020-09-20 16:47 | PM.CNCAR ---
Assessment and Plan Assessment and plan (1) Preoperative cardiovascular examination: Code(s): Z01.810 - Encounter for preprocedural cardiovascular examination Status: Acute Assessment and Plan: Patient is an 85-year-old white woman with history of hypertension, hyperlipidemia, colon cancer (2018, status post partial colectomy, status post chemotherapy ending July 2019), GERD, hiatal hernia, peptic ulcer disease, iron deficiency anemia, peripheral neuropathy, who is seen in cardiac consultation for preoperative cardiovascular evaluation. - patient reports immobility in the last 2 years, using walker and unable to walk 2 blocks in the setting of back and leg pain. - she reports atypical chest pain after eating. - She does report increased exertional dyspnea in recent months, with last stress test more than 15 years ago and reportedly negative left heart catheterization at that time. - Given her limited functional status and exertional symptoms, she is moderate risk for moderate risk procedure. - Obtain echo to evaluate cardiac structure and function. - continue her outpatient atorvastatin and diltiazem. Obtain fasting lipid panel. - monitor on telemetry. (2) Closed left ankle fracture: Code(s): S82.892A - Other fracture of left lower leg, initial encounter for closed fracture Status: Acute Assessment and Plan: - Possible surgical management of her closed left ankle fracture on 09/21/2020 as per Orthopedic Service. (3) HTN (hypertension): Qualifiers: Hypertension type: essential hypertension Qualified Code(s): I10 - Essential (primary) hypertension Code(s): I10 - Essential (primary) hypertension Status: Acute Assessment and Plan: - blood pressure variably [id number] elevated this admission, currently improving. - continue to monitor blood pressure and adjust medications as needed. (4) Exertional dyspnea: Code(s): R06.00 - Dyspnea, unspecified Status: Acute Assessment and Plan: - She does report increased exertional dyspnea in recent months, with last stress test more than 15 years ago and reportedly negative left heart catheterization at that time. - She will benefit from outpatient Lexiscan nuclear stress testing to evaluate for ischemia in the coming weeks. History of Present Illness History of Present Illness Consult date/time: 09/20/20 16:47 Patient is a 85-year-old white woman with history of hypertension, hyperlipidemia, colon cancer ( 2018, status post partial colectomy, status post chemotherapy ending July 2019), GERD,hiatal hernia, peptic ulcer disease, iron deficiency anemia, peripheral neuropathy, who is seen in cardiac consultation for preoperative cardiovascular evaluation. Patient had accidental fracture after she lost her balance and fell off a curb on 09/13/2020, with closed left ankle fracture, for which she is being considered for surgical intervention by Orthopedics. Patient reports in the setting of a 2 year history of treatment for colon cancer as well as orthopedic issues, she has become very inactive, using her walker to ambulate. She reports that she is not able to walk 2 blocks due to back and leg pain. She denies any formal exercise. She reports that she had a stress test approximately 20 years ago and also left heart catheterization 20 years ago and was told at the time that she had no significant coronary artery disease. She denies any chest pain with exception of epigastric discomfort after eating. She does report increased exertional dyspnea in recent months. She denies any history of prior myocardial infarction, congestive heart failure, valvular heart disease, or cardiac arrhythmia. She denies any family history of premature myocardial infarction. She denies any history of alcohol or tobacco use. She denies palpitations, dizziness, or syncope. She denies orthopnea, paroxysmal nocturnal dyspnea or edema with the
[2020-09-20] MEDS: BISACODYL 10 MG SUPPOSITORY RECTAL (17:21)
[2020-09-20] MEDS: ATORVASTATIN 10 MG TABLET PO (20:06)
[2020-09-20 20:11] VITALS: PULSE 79
[2020-09-20] MEDS: DOCUSATE SODIUM 100 MG CAPSULE PO (20:11)
[2020-09-20] MEDS: MELATONIN 3 MG TABLET PO (20:11)
[2020-09-20 20:56] VITALS: BP 121/60; PULSE 81; RESP 18; TEMP 36.3; O2SAT 97
[2020-09-21] VITALS (18 sets, daily range): BP systolic 118–153; BP diastolic 52–92; PULSE 67–89; RESP 10–20; TEMP 36.3–37.6; O2SAT 93–100
--- NOTE | 2020-09-21 03:47 | WPDANESEPP ---
Anes - Eval Pre Procedure Procedure: Operation Date: 09/21/20 07:30 Proposed Procedures p Open Reduction Internal Fixation Left Distal Fibula with Syndesmotic Tight Rope(Left) - Chay Sin MD Date/Time: 09/21/20 03:47 Surgeon: janet Pre Op Diagnosis: Unstable Ankle Fx LT Patient Data Age: 85 Gender: F Height: 1.68 m Weight: 101.5 kg Last Vital Signs Temp 36.3 C L 09/20/20 20:56 Pulse 69 09/21/20 00:00 Resp 18 09/20/20 20:56 BP 121/60 09/20/20 20:56 Pulse Ox 97 09/20/20 20:56 Allergies Allergy/AdvReac Type Severity Reaction Status Date / Time ibuprofen Allergy Severe BLEEDING Verified 09/13/20 14:28 ULCER pseudoephedrine AdvReac Mild N/V Verified 09/13/20 14:28 naproxen AdvReac Unknown ULCER Verified 09/13/20 14:28 Home Medications Medication Instructions Recorded Confirmed Type duloxetine 20 mg capsule,delayed 20 mg PO BID 01/17/19 09/19/20 History release B12 1 adwoa SUBLINGUAL DAILY 02/10/19 09/19/20 History Calcium 600 + D(3) 1 cap PO DAILY 02/10/19 09/19/20 History cholecalciferol (vitamin D3) 2,000 unit PO DAILY 02/10/19 09/19/20 History [Vitamin D3] melatonin 3 mg PO HS 02/10/19 09/19/20 History multivitamin 1 tablet PO DAILY 02/10/19 09/19/20 History pregabalin 100 mg capsule 100 mg PO BID 10/25/19 09/19/20 History omeprazole magnesium [Prilosec OTC] 20 mg PO DAILY 12/13/19 09/19/20 History ferrous sulfate 325 mg (65 mg 325 mg PO DAILY #90 tablet 05/16/20 09/19/20 Rx iron) tablet oxybutynin chloride 10 mg 10 mg PO DAILY #90 tablet 08/20/20 09/19/20 Rx tablet,extended release 24 hr diltiazem HCl [Cartia XT] 1 mg PO DAILY 09/13/20 09/19/20 History ropinirole 1 mg PO TID 09/13/20 09/19/20 History atorvastatin 10 mg PO DAILY 09/19/20 09/19/20 History Laboratory Tests 09/20/20 09/20/20 05:03 05:03 PT 13.6 Seconds Seconds (11.1-14.7) INR 1.1 APTT 29.2 SECONDS SECONDS (22.3-36.8) Sodium 139 mmol/L mmol/L (137-145) Potassium 4.2 mmol/L mmol/L (3.4-5.0) Chloride 104 mmol/L mmol/L (98-107) Carbon Dioxide 29 mmol/L mmol/L (22-30) Anion Gap 6 mmol/L L mmol/L (8-16) BUN 17 mg/dL mg/dL (7-17) Creatinine 0.70 mg/dL mg/dL (0.7-1.0) Estim Creat Clear Calc Not Reportable Estimated GFR > 60 (59 - ) Glucose 97 mg/dL mg/dL (65-105) Calcium 8.8 mg/dL mg/dL (8.4-10.2) Total Bilirubin 0.7 mg/dL mg/dL (0.2-1.3) AST 65 U/L H U/L (14-36) ALT 99 U/L H U/L (4-35) Alkaline Phosphatase 255 U/L H U/L (38-126) Total Protein 6.0 g/dL L g/dL (6.3-8.2) Albumin 3.5 g/dL g/dL (3.5-5.1) Patient hx anesthesia problems: none Family hx anesthesia problems: none PMFSH Past Medical History Medical History Arthritis Cataract left Chronic anemia Chronic low back pain Colon cancer (12/2018) Status post partial colectomy and chemotherapy. Dyslipidemia Frequent falls Gastroesophageal reflux disease Glaucoma History of kidney stones History of stress test Negative stress test around 2004. Hypertension Idiopathic peripheral neuropathy Osteoarthritis Peptic ulcer (2002) Restless leg syndrome Stress incontinence Vitamin D deficiency Surgical History Surgical History History of appendectomy History of cholecystectomy (01/06/19) Laparoscopic cholecystectomy with IOC. History of lithotripsy History of orthopedic surgery Pinning left hip fracture. History of right hemicolectomy (01/06/19) Right hemicolectomy with anastomosis distal ileum to transverse colon. History of total hysterectomy Family History Family History Father Hypertension Family history of cardiovascular disease Mother Family history of cardiovascular disease Sibling Fa
[2020-09-21 05:42] LABS: Hemoglobin 11.6 g/dL (12.0-15.0)
[2020-09-21 05:58] LABS: Alanine Aminotransferase 69 U/L (4-35); Albumin Level 3.5 g/dL (3.5-5.1); Alkaline Phosphatase 211 U/L (38-126); Anion Gap 7 mmol/L (8-16); Aspartate Amino Transferase 39 U/L (14-36); Bilirubin,Total 0.6 mg/dL (0.2-1.3); Blood Urea Nitrogen 18 mg/dL (7-17); Calcium 9.5 mg/dL (8.4-10.2); Carbon Dioxide 30 mmol/L (22-30); Chloride 102 mmol/L (98-107); Cholesterol 154 mg/dL (0-200); Estimated CRCL calculation 54 ml/min; Estimated Glomerular Filt Rate > 60; Glucose 109 mg/dL (65-105); HDL Direct 34 mg/dL; Potassium 3.9 mmol/L (3.4-5.0); Sodium 139 mmol/L (137-145); Triglycerides 146 mg/dL (<150)
[2020-09-21 06:09] LABS: LDL Cholesterol Direct 72 mg/dL
--- NOTE | 2020-09-21 07:22 | WPDHPUPDATE1 ---
History and Physical Update Update Date/Time: 09/21/20 07:22 History and Physical has been reviewed, including an updated exam of the patient. There are NO changes in the patient's condition. Risks, benefits, and alternatives have been discussed and questions answered. Patient agrees to proceed with procedure. Cardiology eval recs noted. Swelling much less than 2 days ago and skni without blistering. Today there is a 2 + DP pulse palpaple. No pedal edema.
--- NOTE | 2020-09-21 07:27 | P.PNAN_ITS ---
Anes - Eval Final PreProcedure Day of Procedure 09/21/20 07:27 Patient weight: obese Heart: regular rate and rhythm Lungs: clear to auscultation Airway: Mallampati scale class II Neurological: alert and oriented Last oral intake: >/= 8 hours ASA classification: III Emergent: no Anesthetic plan: proceed Anesthesia type and monitoring: general LMA and standard monitoring Informed Consent: The patient's anesthetic plan and its attendant risks and be nefits were discussed with the patient/family/POA. Questions were solicited and answers provided to the satisfaction of the patient/family/POA.
[2020-09-21] MEDS: LACTATED RINGERS 1,000 ML 30 ML IV CONT (07:30)
[2020-09-21] MEDS: ceFAZolin 2 GM/D5W 50 ML 2 GM/50 ML BAG IVPB (08:00)
[2020-09-21] MEDS: ceFAZolin SODIUM 1 GM VIAL IRRIGATION (08:00)
--- NOTE | 2020-09-21 09:00 | SUR.OPER ---
left ankle Syndesmosis TightRope XP Lot [id number], exp 2024-09-11.
[2020-09-21] MEDS: ceFAZolin SODIUM 1 GM VIAL IV PUSH (09:15)
--- NOTE | 2020-09-21 10:14 | W.PM.PROC2 ---
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 She received weight based vancomycin 2 g of Ancef preoperatively. A bump was placed under the left buttock and a roll of blankets under the left distal thigh. The left leg was prepped draped usual fashion. Prior to positioning we carefully scrubbed the left foot and ankle with the chlorhexidine cloth. The skin was prepped with DuraPrep and all the skin covered with Ioban. A 5 in longitudinal incision was made over the lateral aspect of the left lower leg centered over the fracture site the left distal fibular shaft. I did not visualize any of the branches of the superficial peroneal nerve but these were looked for. The fracture was cleared of hematoma and anatomic reduction was achieved by applying traction on the distal fragment with bone clamp and a plane 2 bone clamps across the fracture site. A single 2.7 mm interfragmentary screw was placed to stabilize the fracture through placed through a gliding hole from posterior to anterior. This obtained adequate fixation. An 8 hole 1/3 tubular locking plate from the Arthrex set was carefully contoured to sit close to the bone and this required a complex contouring because of the curvature. A ball-tip pin stabilize the plate distally and we position the plate so there would be 3 screw holes over the distal fragment and 3 screw holes proximal to the fracture. The central 2 holes were open as this was where the long oblique fracture resided. The 3rd from proximal hole was drilled for a cortical nonlocking screw and this was inserted and it nicely press the plate down onto the bone. We then placed a locking screw in the distal and 3rd from distal holes in the distal fragment and 2 locking screws in the proximal 2 holes. We confirmed anatomic reduction under fluoro. There was still a little bit syndesmotic instability on lateral stress to the ankle and therefore a Arthrex syndesmotic tight rope was placed in the 2nd from most distal hole to about 1/2 cm proximal to the joint line. A guide pin was inserted initially at about 30? relative to the transverse plane parallel to the axis between the fibula and tibia and this was then over drilled and the tight rope device inserted across the medial surface of the distal tibial metaphysis and the Endobutton flipped successfully and the button deployed and successfully secured and the sutures cut. This gave anatomic reduction of the mortise with no instability on stress under fluoro. The tourniquet had been put down before deploying the tight rope at 51 minutes. The wound had been irrigated with antibiotic solution several times and was again prior to skin closure with 300 subcutaneous Vicryl and glue. A soft bulky splint was applied. We did not use an Rui wrap to avoid compression of her thin skin onto the plate. She was transferred postop recovery room in good condition. Estimated Blood Loss -50.0 Urine Output 400
--- NOTE | 2020-09-21 10:17 | PM.PNCARD ---
Progress Note: A&P Assessment and Plan (1) Preoperative cardiovascular examination: Code(s): Z01.810 - Encounter for preprocedural cardiovascular examination Status: Acute Assessment and Plan: Patient is an 85-year-old white woman with history of hypertension, hyperlipidemia, colon cancer (2019, status post partial colectomy, status post chemotherapy ending July 2019), GERD, hiatal hernia, peptic ulcer disease, iron deficiency anemia, peripheral neuropathy, who is seen in cardiac consultation for preoperative cardiovascular evaluation. - patient reports immobility in the last 2 years, using walker and unable to walk 2 blocks in the setting of back and leg pain. - she reports atypical chest pain after eating. - She does report increased exertional dyspnea in recent months, with last stress test more than 15 years ago and reportedly negative left heart catheterization at that time. - Given her limited functional status and exertional symptoms, she is moderate risk for moderate risk procedure. - continue her outpatient atorvastatin and diltiazem. Obtain fasting lipid panel. - monitor on telemetry. she is in surgery now, will continue to monitor postoperatively (2) Closed left ankle fracture: Code(s): S82.892A - Other fracture of left lower leg, initial encounter for closed fracture Status: Acute Assessment and Plan: - Possible surgical management of her closed left ankle fracture on 09/21/2020 as per Orthopedic Service. (3) HTN (hypertension): Qualifiers: Hypertension type: essential hypertension Qualified Code(s): I10 - Essential (primary) hypertension Code(s): I10 - Essential (primary) hypertension Status: Acute Assessment and Plan: - blood pressure variably [id number] elevated this admission, currently improving. - continue to monitor blood pressure and adjust medications as needed. (4) Exertional dyspnea: Code(s): R06.00 - Dyspnea, unspecified Status: Acute Assessment and Plan: - She does report increased exertional dyspnea in recent months, with last stress test more than 15 years ago and reportedly negative left heart catheterization at that time. - She will benefit from outpatient Lexiscan nuclear stress testing to evaluate for ischemia in the coming weeks. Subjective Date/time seen: 09/21/20 10:17 She went for surgery today Exam Narrative: Exam Narrative: General: well-nourished, well-appearing 85-year-old female who is lying semi recumbent in bed. She appears comfortable and is in NAD. Neuro: awake, alert and oriented x4, speech clear, no focal neuro deficits noted HEENMT: normocephalic, atraumatic, EOMI, sclerae anicteric, moist oral mucosa Neck: supple, no lymphadenopathy Respiratory: clear to auscultation bilaterally, nonlabored breathing Cardio: regular rate, regular rhythm with normal S1-S2, with 1/6 intensity systolic murmur. Abdomen: protuberant, normoactive bowel sounds, soft, nontender to palpation, no rigidity or guarding Extremities: Left foot is in boot. Toes are visible. She is able to wiggle her toes. She has brisk capillary refill bilaterally. Right lower extremity without edema, erythema, or tenderness to palpation, right DP pulse 2+ Skin: no rashes or lesions, warm and dry Psych: appropriate mood and affect, judgment and insight intact Objective Data Vital Signs Vital Signs: Vital Signs - 24 hr 09/20/20 14:00 09/20/20 20:11 09/20/20 20:56 Temperature 36.3 C L 36.3 C L Pulse Rate 72 79 81 Respiratory Rate 12 18 Blood Pressure 110/70 121/60 Pulse Oximetry 97 97 09/21/20 00:00 09/21/20 04:00 09/21/20 06:00 Temperature 36.6 C Pulse Rate 69 68 73 Respiratory Rate 18 Blood Pressure 145/70 H Pulse Oximetry 95 09/21/20 10:00 Temperature 37.6 C Pulse Rate 80 Respiratory Rate 16 Blood Pressure 125/76 Pulse Oximetry 96 Intake/Output Intake/Output: Intake & Output 09/18/20
[2020-09-21] MEDS: fentaNYL CITRATE INJ (*CRX) 100 MCG/2 ML VIAL 25 MCG IV PUSH ×2 (10:43→11:05)
--- NOTE | 2020-09-21 11:35 | PC.NURSE ---
Returned from OR per bed. Report received from Maura GORE.
[2020-09-21] MEDS: DULoxetine HCL 20 MG CAPSULE.DR PO ×2 (12:27→21:12)
[2020-09-21] MEDS: CHOLECALCIFEROL 1,000 UNITS TABLET 2000 UNITS PO (12:27)
[2020-09-21] MEDS: MULTIVITAMINS THERAPEUTIC TAB (*BKC) 1 TABLET PO (12:28)
[2020-09-21] MEDS: FERROUS SULFATE 324 MG TABLET PO (12:28)
[2020-09-21] MEDS: PANTOPRAZOLE 40 MG TABLET PO (12:29)
[2020-09-21] MEDS: ACETAMINOPHEN 500 MG TABLET 1000 MG PO ×2 (12:29→17:59)
[2020-09-21] MEDS: polyethylene glycoL 3350 17 GM POWD.PACK PO (12:29)
[2020-09-21] MEDS: rOPINIRole HCL 1 MG TABLET PO ×2 (12:29→17:12)
--- NOTE | 2020-09-21 16:35 | PM.IMPN ---
Progress Note: A&P Assessment and Plan (1) Closed left ankle fracture: Code(s): S82.892A - Other fracture of left lower leg, initial encounter for closed fracture Status: Acute Assessment and Plan: unstable left ankle fracture sustained in a mechanical fall on 09/13/2020 s/p ORIF performed today by Dr. Sin management per orthopedic surgery Appreciate PT/OT eval. Weight bearing status per orthopedics analgesics available as needed (2) Hypertension: Code(s): I10 - Essential (primary) hypertension Status: Acute Assessment and Plan: blood pressure reviewed and has been generally well controlled. Last BP 145/70 continue diltiazem monitor BP trends (3) Chronic anemia: Code(s): D64.9 - Anemia, unspecified Status: Acute Assessment and Plan: Hemoglobin and hematocrit are stable. Continue p.o. ferrous sulfate (4) Gastroesophageal reflux disease: Code(s): K21.9 - Gastro-esophageal reflux disease without esophagitis Status: Acute Assessment and Plan: no acute issues at this time continue Protonix (5) Idiopathic peripheral neuropathy: Code(s): G60.9 - Hereditary and idiopathic neuropathy, unspecified Status: Acute Assessment and Plan: stable with no acute issues continue Lyrica and ropinirole (6) Transaminitis: Code(s): R74.01 - Elevation of levels of liver transaminase levels Status: Acute Assessment and Plan: Improved today compared to admission. Improving. Trend LFTs consider further evaluation based on progression (7) Constipation: Code(s): K59.00 - Constipation, unspecified Status: Acute Assessment and Plan: Resolved. Continue Miralax and colace scheduled Subjective Date/time seen: 09/21/20 16:35 Interval history: Date of service: 09/21/20 Rosy Alexander is an 85 year old female with a history of anemia, colon cancer, HTN, RLS, and peptic ulcer who is seen in follow up for acute left ankle fracture. she is status post ORIF left ankle fracture. She tolerated the procedure well. Her pain is well controlled at this time. She had a bowel movement yesterday and no longer endorses abdominal pain or bloating. No nausea or vomiting following surgery. She ate a small amount of lunch. She was not able to get up to the chair for lunch today because she felt weak. Denies shortness breath, cough, chest pain. She is feeling tired today and would like to rest. Review of Systems Review of Systems: All systems reviewed & are unremarkable except as noted in HPI and below Exam Narrative: Exam Narrative: Ms. Alexander is a well-nourished, well-appearing 85-year-old female who is lying semi recumbent in bed. she appears comfortable and is in NARD. Neuro: awake, alert and oriented x4, speech clear, no focal neuro deficits noted HEENMT: normocephalic, atraumatic, EOMI, sclerae anicteric, moist oral mucosa Neck: supple, no lymphadenopathy Respiratory: clear to auscultation bilaterally, nonlabored breathing Cardio: regular rate, regular rhythm with S1-S2 Abdomen: protuberant, normoactive bowel sounds, soft, nontender to palpation, no rigidity or guarding Extremities: Left foot is wrapped and splinted. Toes are visible. She is able to wiggle her toes. She has brisk capillary refill bilaterally. Right lower extremity without edema, erythema, or tenderness to palpation, right DP pulse 2+ Skin: no rashes or lesions, warm and dry Psych: appropriate mood and affect, judgment and insight intact Objective Data Vital Signs Vital Signs: Vital Signs - 24 hr 09/20/20 20:11 09/20/20 20:56 09/21/20 00:00 Temperature 97.4 F L Pulse Rate 79 81 69 Respiratory Rate 18 Blood Pressure 121/60 Pulse Oximetry 97 09/21/20 04:00 09/21/20 06:00 09/21/20 08:00 Temperature 97.8 F Pulse Rate 68 73 67 Respiratory Rat
[2020-09-21] MEDS: PREGABALIN (*CRX) 50 MG CAPSULE 100 MG PO (17:11)
[2020-09-21] MEDS: SENNA/DOCUSATE SODIUM TABLET 2 TAB PO (17:11)
[2020-09-21] MEDS: oxyCODONE HCL (*CRX) 2.5 MG TAB IR PO (17:11)
[2020-09-21] MEDS: ATORVASTATIN 10 MG TABLET PO (21:12)
[2020-09-21] MEDS: MELATONIN 3 MG TABLET PO (21:12)
[2020-09-22] VITALS (7 sets, daily range): BP systolic 114–147; BP diastolic 47–80; PULSE 67–83; RESP 14–18; TEMP 36.4–36.7; O2SAT 94–98
[2020-09-22] MEDS: ACETAMINOPHEN 500 MG TABLET 1000 MG PO ×5 (00:19→23:51)
[2020-09-22] MEDS: oxyCODONE HCL (*CRX) 2.5 MG TAB IR PO (05:38)
[2020-09-22 05:58] LABS: Hematocrit 35.3 % (37.0-47.0); Hemoglobin 11.2 g/dL (12.0-15.0)
[2020-09-22 05:59] LABS: Alanine Aminotransferase 48 U/L (4-35); Albumin Level 3.6 g/dL (3.5-5.1); Alkaline Phosphatase 217 U/L (38-126); Anion Gap 7 mmol/L (8-16); Aspartate Amino Transferase 36 U/L (14-36); Bilirubin,Total 0.4 mg/dL (0.2-1.3); Blood Urea Nitrogen 16 mg/dL (7-17); Calcium 9.3 mg/dL (8.4-10.2); Carbon Dioxide 30 mmol/L (22-30); Chloride 101 mmol/L (98-107); Estimated CRCL calculation 70 ml/min; Estimated Glomerular Filt Rate > 60; Glucose 116 mg/dL (65-105); Potassium 4.3 mmol/L (3.4-5.0); Sodium 138 mmol/L (137-145)
--- NOTE | 2020-09-22 07:37 | WPDANESPN ---
Anes - Prog Note Post-Op Date/Time: 09/22/20 07:37 Cardiovascular status: normal Respiratory status: normal Airway patency: baseline Mental status: baseline Post-Op hydration status: normal Vital Signs: Last Vital Signs Temp 36.4 C L 09/22/20 06:00 Pulse 73 09/22/20 06:00 Resp 18 09/22/20 06:00 BP 114/80 09/22/20 06:00 Pulse Ox 94 09/22/20 06:00 Pain Score (VAS): no complaints of pain I/O: Intake & Output 09/21/20 09/21/20 09/22/20 15:59 23:59 07:59 Intake Total 390 940 600 Output Total 400 600 200 Balance -10 340 400 Laboratory Tests 09/22/20 05:36 09/22/20 05:36 09/22/20 09/22/20 05:36 05:36 Hgb 11.2 L Hct 35.3 L Sodium 138 Potassium 4.3 Chloride 101 Carbon Dioxide 30 Anion Gap 7 L BUN 16 Creatinine 0.60 L Estim Creat Clear Calc 70 Estimated GFR > 60 Glucose 116 H Calcium 9.3 Total Bilirubin 0.4 AST 36 ALT 48 H Alkaline Phosphatase 217 H Total Protein 6.0 L Albumin 3.6 Post-procedural complaints: none Patient Feedback: Patient satisfied with anesthetic care.
--- NOTE | 2020-09-22 08:55 | PM.IMPN ---
Progress Note: A&P Assessment and Plan (1) Closed left ankle fracture: Code(s): S82.892A - Other fracture of left lower leg, initial encounter for closed fracture Status: Acute Assessment and Plan: unstable left ankle fracture sustained in a mechanical fall on 09/13/2020 s/p ORIF on 09/21/[address] Sin management per orthopedic surgery Appreciate PT/OT eval. Weight bearing status per orthopedics analgesics available as needed started on Eliquis per orthopedics for DVT prophylaxis care coordination following for discharge planning. Home health v SNF (2) Hypertension: Code(s): I10 - Essential (primary) hypertension Status: Acute Assessment and Plan: blood pressure reviewed and has been generally well controlled. Last BP 114/80 continue diltiazem monitor BP trends (3) Chronic anemia: Code(s): D64.9 - Anemia, unspecified Status: Acute Assessment and Plan: Hemoglobin and hematocrit are stable. Continue p.o. ferrous sulfate (4) Gastroesophageal reflux disease: Code(s): K21.9 - Gastro-esophageal reflux disease without esophagitis Status: Acute Assessment and Plan: no acute issues at this time continue Protonix (5) Idiopathic peripheral neuropathy: Code(s): G60.9 - Hereditary and idiopathic neuropathy, unspecified Status: Acute Assessment and Plan: stable with no acute issues continue Lyrica and ropinirole (6) Transaminitis: Code(s): R74.01 - Elevation of levels of liver transaminase levels Status: Acute Assessment and Plan: continued improvement from presentation with normalization of AST. Trend LFTs consider further evaluation based on progression (7) Constipation: Code(s): K59.00 - Constipation, unspecified Status: Acute Assessment and Plan: Resolved. Continue Miralax and colace scheduled Dulcolax suppository p.r.n. recommend limitation of narcotics Subjective Date/time seen: 09/22/20 08:55 Interval history: Date of service: 09/22/20 Rosy Alexander is an 85 year old female with a history of anemia, colon cancer, HTN, RLS who is seen in follow up for acute left ankle fracture. She is status post ORIF left ankle fracture. she is doing pretty well today. Her left ankle pain is well controlled. She rates it as 4/10 with movement and is comfortable at rest. She is tolerating her diet. Denies nausea, vomiting, fever, or chills. She has not been up out of bed yet today. Denies shortness breath, cough, chest pain, dizziness, lightheadedness. Discussed discharge plans. She would like to go home but also feels that she would benefit from rehab. Review of Systems Review of Systems: All systems reviewed & are unremarkable except as noted in HPI and below Exam Narrative: Exam Narrative: Ms. Alexander is a well-nourished, well-appearing 85-year-old female who is lying semi recumbent in bed. she appears comfortable and is in NARD. Neuro: awake, alert and oriented x4, speech clear, no focal neuro deficits noted HEENMT: normocephalic, atraumatic, EOMI, sclerae anicteric Neck: supple, no lymphadenopathy Respiratory: clear to auscultation bilaterally, nonlabored breathing Cardio: regular rate, regular rhythm with S1-S2 Abdomen: Nondistended, normoactive bowel sounds, soft, nontender to palpation, no rigidity or guarding Extremities: Left foot is wrapped and splinted. Toes are visible. She is able to wiggle her toes. She has brisk capillary refill bilaterally. Right lower extremity without edema, erythema, or tenderness to palpation, right DP pulse 2+ Skin: no rashes or lesions, warm and dry Psych: appropriate mood and affect, judgment and insight intact Objective Data Vital Signs Vital Signs: Vital Signs - 24 hr 09/21/20 10:00 09/21/20 10:16 09/21/20 10:30 Temperature 99.6 F 97.6 F
[2020-09-22] MEDS: APIXABAN 2.5 MG TABLET PO ×2 (09:09→20:12)
[2020-09-22] MEDS: CHOLECALCIFEROL 1,000 UNITS TABLET 2000 UNITS PO (09:10)
[2020-09-22] MEDS: SENNA/DOCUSATE SODIUM TABLET 2 TAB PO ×2 (09:11→17:30)
[2020-09-22] MEDS: DULoxetine HCL 20 MG CAPSULE.DR PO ×2 (09:11→20:12)
[2020-09-22] MEDS: MULTIVITAMINS THERAPEUTIC TAB (*BKC) 1 TABLET PO (09:12)
[2020-09-22] MEDS: FERROUS SULFATE 324 MG TABLET PO (09:12)
[2020-09-22] MEDS: PANTOPRAZOLE 40 MG TABLET PO (09:13)
[2020-09-22] MEDS: PREGABALIN (*CRX) 50 MG CAPSULE 100 MG PO ×2 (09:13→17:30)
[2020-09-22] MEDS: rOPINIRole HCL 1 MG TABLET PO ×3 (09:13→17:30)
[2020-09-22] MEDS: polyethylene glycoL 3350 17 GM POWD.PACK PO (09:13)
--- NOTE | 2020-09-22 12:04 | PM.PNORT ---
Progress Note: A&P Additional Plan Patient is day 1. After internal fixation of distal fibular shaft fracture and syndesmotic fixation. There was also a minimally displaced posterior malleolus fracture. She is comfortable has twinges of pain only but very tolerable. She has the leg appropriately elevated on pillows. She has intact sensation in her toes and the dorsum of her forefoot. She is alert and oriented and in good spirits. She did transfer to the chair but needed a fair amount of help and found that surprising how hard it is to be nonweightbearing on 1 leg. She will be bed to chair until she is allowed to bear weight which will be in 6 weeks. Case management is working on nursing rehab facility placement that looks like [facility] may be the choice and she will probably be ready to go by tomorrow. She has been afebrile with stable vital signs and seems to have no ill affects from the anesthesia. Her son was present in I discussed the fracture and further treatment with him. She is on Eliquis for DVT prophylaxis as she does have obesity and will be basically bed to chair for the next 6 weeks. Subjective Subjective Date/Time Seen: 09/22/20 12:04 Objective Data Vital Signs Vital Signs: Vital Signs - 24 hr 09/21/20 12:25 09/21/20 13:25 09/21/20 16:00 Temperature 36.3 C L 36.6 C Pulse Rate 82 89 83 Respiratory Rate 16 17 Blood Pressure 140/90 140/92 H Pulse Oximetry 98 97 09/21/20 18:25 09/21/20 20:00 09/21/20 21:37 Temperature 36.6 C 36.6 C Pulse Rate 81 81 82 Respiratory Rate 16 18 Blood Pressure 121/55 L 118/52 L Pulse Oximetry 97 96 96 09/22/20 00:00 09/22/20 00:49 09/22/20 04:00 Temperature 36.4 C Pulse Rate 78 83 69 Respiratory Rate 16 Blood Pressure 147/71 H Pulse Oximetry 94 09/22/20 06:00 09/22/20 10:30 Temperature 36.4 C L 36.7 C Pulse Rate 73 74 Respiratory Rate 18 16 Blood Pressure 114/80 127/47 L Pulse Oximetry 94 97 Intake/Output Intake/Output: Intake & Output 09/19/20 09/20/20 09/21/20 09/22/20 23:59 23:59 23:59 23:59 Intake Total 540 1330 840 Output Total 500 1400 200 Balance 40 -70 640 Meds/Results Medications: Active Medications Generic Name Dose Route Start Last Admin Trade Name Jace PRN Reason Stop Dose Admin Acetaminophen 1,000 mg 09/21/20 12:00 09/22/20 05:38 Acetaminophen 500 Mg Tablet PO 1,000 mg Q6HR ZACHARY Administration Apixaban 2.5 mg 09/22/20 09:00 09/22/20 09:09 Apixaban 2.5 Mg Tablet PO 2.5 mg Q12HR ZACHARY Administration Atorvastatin Calcium 10 mg 09/20/20 21:00 09/21/20 21:12 Atorvastatin 10 Mg Tablet PO 10 mg HS ZACHARY Administration Calcium Carbonate 500 mg 09/20/20 09:00 09/22/20 09:10 Calcium/Vitamin D 500 Mg Tablet PO 10/20/20 09:01 500 mg DAILY ZACHARY Administration Diltiazem HCl 240 mg 09/20/20 09:00 09/22/20 09:11 Diltiazem Hcl Cd 240 Mg Cap.Er.24h PO 240 mg DAILY ZACHARY Administration Duloxetine HCl 20 mg 09/20/20 09:00 09/22/20 09:11 Duloxetine Hcl 20 Mg Capsule.Dr PO 20 mg Q12HR ZACHARY Administration Ferrous Sulfate 324 mg 09/20/20 09:00 09/22/20 09:12 Ferrous Sulfate 324 Mg Tablet PO 324 mg DAILY ZACHARY Administration Melatonin 3 mg 09/19/20 21:00 09/21/20 21:12 Melatonin 3 Mg Tablet PO 3 mg HS ZACHARY Administration Multivitamins Therapeutic 1 tablet 09/20/20 09:00 09/22/20 09:12 Multivitamins Therapeutic Tab (*Bkc) PO 1 tablet DAILY ZACHARY Administration Oxybutynin Chloride 10 mg 09/20/20 09:00 09/22/20 09:12 Oxybutynin Chloride Xl 5 Mg Tab.Er.24 PO 10 mg DAILY ZACHARY Administration Oxycodone HCl 2.5 mg 09/21/20 13:00 09/22/20 09:13 Oxycodone Hcl (*Crx) 2.5 Mg Tab Ir PO Not Given Q4HR ZACHARY Oxycodone HCl 2.5 mg 09/21/20 11:21 Oxycodone Hcl (*Crx) 2.5 Mg Tab Ir PO Q4H PRN Pain Rated 7-10 Pantoprazole Sodium 40 mg 09/20/20 09:00 09/22/20 09:13 Pantoprazole 40 Mg Tablet PO 10/20/20 09:01 40 mg
--- NOTE | 2020-09-22 12:23 | PM.PNCARD ---
Progress Note: A&P Assessment and Plan (1) Preoperative cardiovascular examination: Code(s): Z01.810 - Encounter for preprocedural cardiovascular examination Status: Acute Assessment and Plan: Patient is an 85-year-old white woman with history of hypertension, hyperlipidemia, colon cancer (2019, status post partial colectomy, status post chemotherapy ending July 2019), GERD, hiatal hernia, peptic ulcer disease, iron deficiency anemia, peripheral neuropathy, who is seen in cardiac consultation for preoperative cardiovascular evaluation. - patient reports immobility in the last 2 years, using walker and unable to walk 2 blocks in the setting of back and leg pain. - she reports atypical chest pain after eating. - She does report increased exertional dyspnea in recent months, with last stress test more than 15 years ago and reportedly negative left heart catheterization at that time. - Given her limited functional status and exertional symptoms, she is moderate risk for moderate risk procedure. - continue her outpatient atorvastatin and diltiazem. Obtain fasting lipid panel. [place] under surgery yesterday did well, okay to stop telemetry (2) Closed left ankle fracture: Code(s): S82.892A - Other fracture of left lower leg, initial encounter for closed fracture Status: Acute Assessment and Plan: - Possible surgical management of her closed left ankle fracture on 09/21/2020 as per Orthopedic Service. (3) HTN (hypertension): Qualifiers: Hypertension type: essential hypertension Qualified Code(s): I10 - Essential (primary) hypertension Code(s): I10 - Essential (primary) hypertension Status: Acute Assessment and Plan: - blood pressure variably [id number] elevated this admission, currently improving. - continue to monitor blood pressure and adjust medications as needed. (4) Exertional dyspnea: Code(s): R06.00 - Dyspnea, unspecified Status: Acute Assessment and Plan: - She does report increased exertional dyspnea in recent months, with last stress test more than 15 years ago and reportedly negative left heart catheterization at that time. - She will benefit from outpatient Lexiscan nuclear stress testing to evaluate for ischemia in the coming weeks. Subjective Date/time seen: 09/22/20 12:23 SHE FEELS OKAY TODAY SHE HAD HER SURGERY YESTERDAY DID WELL, now in sinus rhythm no chest pain no significant shortness of breath Exam Narrative: Exam Narrative: General: well-nourished, well-appearing 85-year-old female who is lying semi recumbent in bed. She appears comfortable and is in NAD. Neuro: awake, alert and oriented x4, speech clear, no focal neuro deficits noted HEENMT: normocephalic, atraumatic, EOMI, sclerae anicteric, moist oral mucosa Neck: supple, no lymphadenopathy Respiratory: clear to auscultation bilaterally, nonlabored breathing Cardio: regular rate, regular rhythm with normal S1-S2, with 1/6 intensity systolic murmur. Abdomen: protuberant, normoactive bowel sounds, soft, nontender to palpation, no rigidity or guarding Extremities: Left foot is in boot. She is able to wiggle her toes. She has brisk capillary refill bilaterally. Right lower extremity without edema, erythema, or tenderness to palpation, right DP pulse 2+ Skin: no rashes or lesions, warm and dry Psych: appropriate mood and affect, judgment and insight intact Objective Data Vital Signs Vital Signs: Vital Signs - 24 hr 09/21/20 12:25 09/21/20 13:25 09/21/20 16:00 Temperature 36.3 C L 36.6 C Pulse Rate 82 89 83 Respiratory Rate 16 17 Blood Pressure 140/90 140/92 H Pulse Oximetry 98 97 09/21/20 18:25 09/21/20 20:00 09/21/20 21:37 Temperature 36.6 C 36.6 C Pulse Rate 81 81 82 Respiratory Rate 16 18 Blood Pressure 121/55 L 118/52 L Pulse Oximetry 97 96 96 09/22/20 00:00 09/22/20 00:49 09/22/20 04:00 Temperature 36.4 C Pulse Rate 78 83 69 Respirato
[2020-09-22] MEDS: MELATONIN 3 MG TABLET PO (20:12)
[2020-09-22] MEDS: ATORVASTATIN 10 MG TABLET PO (20:12)
[2020-09-23 05:04] VITALS: BP 146/65; PULSE 62; RESP 16; TEMP 36.4; O2SAT 96
[2020-09-23] MEDS: ACETAMINOPHEN 500 MG TABLET 1000 MG PO ×3 (05:06→17:40)
[2020-09-23 05:47] LABS: Hematocrit 35.5 % (37.0-47.0); Hemoglobin 11.2 g/dL (12.0-15.0)
[2020-09-23 06:07] LABS: Alanine Aminotransferase 64 U/L (4-35); Albumin Level 3.6 g/dL (3.5-5.1); Alkaline Phosphatase 249 U/L (38-126); Aspartate Amino Transferase 64 U/L (14-36); Bilirubin,Total 0.5 mg/dL (0.2-1.3)
[2020-09-23] MEDS: FERROUS SULFATE 324 MG TABLET PO (08:47)
[2020-09-23] MEDS: SENNA/DOCUSATE SODIUM TABLET 2 TAB PO (08:47)
[2020-09-23] MEDS: DULoxetine HCL 20 MG CAPSULE.DR PO ×2 (08:47→20:57)
[2020-09-23] MEDS: polyethylene glycoL 3350 17 GM POWD.PACK PO (08:48)
[2020-09-23] MEDS: rOPINIRole HCL 1 MG TABLET PO ×3 (08:48→17:02)
[2020-09-23] MEDS: MULTIVITAMINS THERAPEUTIC TAB (*BKC) 1 TABLET PO (08:48)
[2020-09-23 08:49] VITALS: RESP 16; O2SAT 97
[2020-09-23] MEDS: APIXABAN 2.5 MG TABLET PO ×2 (08:49→20:57)
[2020-09-23] MEDS: PANTOPRAZOLE 40 MG TABLET PO (08:49)
[2020-09-23] MEDS: CHOLECALCIFEROL 1,000 UNITS TABLET 2000 UNITS PO (08:49)
[2020-09-23] MEDS: PREGABALIN (*CRX) 50 MG CAPSULE 100 MG PO ×2 (08:56→17:01)
--- NOTE | 2020-09-23 10:49 | PM.PNORT ---
Progress Note: A&P Additional Plan POD 2 alert min pain , splint intact. no swelling in toes. plan to have pt transferred tomorrow to rehab Subjective Subjective Date/Time Seen: 09/23/20 10:49 Objective Data Vital Signs Vital Signs: Vital Signs - 24 hr 09/22/20 17:40 09/22/20 21:15 09/23/20 05:04 Temperature 36.5 C 36.5 C 36.4 C Pulse Rate 71 67 62 Respiratory Rate 14 16 16 Blood Pressure 126/55 L 133/50 L 146/65 H Pulse Oximetry 98 94 96 Intake/Output Intake/Output: Intake & Output 09/20/20 09/21/20 09/22/20 09/23/20 23:59 23:59 23:59 23:59 Intake Total 540 1330 1390 560 Output Total 500 1400 200 800 Balance 40 -70 1190 -240 Meds/Results Medications: Active Medications Generic Name Dose Route Start Last Admin Trade Name Freq PRN Reason Stop Dose Admin Acetaminophen 1,000 mg 09/21/20 12:00 09/23/20 05:06 Acetaminophen 500 Mg Tablet PO 1,000 mg Q6HR ZACHARY Administration Apixaban 2.5 mg 09/22/20 09:00 09/23/20 08:49 Apixaban 2.5 Mg Tablet PO 2.5 mg Q12HR ZACHARY Administration Atorvastatin Calcium 10 mg 09/20/20 21:00 09/22/20 20:12 Atorvastatin 10 Mg Tablet PO 10 mg HS ZACHARY Administration Calcium Carbonate 500 mg 09/20/20 09:00 09/23/20 08:47 Calcium/Vitamin D 500 Mg Tablet PO 10/20/20 09:01 500 mg DAILY ZACHARY Administration Diltiazem HCl 240 mg 09/20/20 09:00 09/23/20 08:47 Diltiazem Hcl Cd 240 Mg Cap.Er.24h PO 240 mg DAILY ZACHARY Administration Duloxetine HCl 20 mg 09/20/20 09:00 09/23/20 08:47 Duloxetine Hcl 20 Mg Capsule.Dr PO 20 mg Q12HR ZACHARY Administration Ferrous Sulfate 324 mg 09/20/20 09:00 09/23/20 08:47 Ferrous Sulfate 324 Mg Tablet PO 324 mg DAILY ZACHARY Administration Melatonin 3 mg 09/19/20 21:00 09/22/20 20:12 Melatonin 3 Mg Tablet PO 3 mg HS ZACHARY Administration Multivitamins Therapeutic 1 tablet 09/20/20 09:00 09/23/20 08:48 Multivitamins Therapeutic Tab (*Bkc) PO 1 tablet DAILY ZACHARY Administration Oxybutynin Chloride 10 mg 09/20/20 09:00 09/23/20 08:47 Oxybutynin Chloride Xl 5 Mg Tab.Er.24 PO 10 mg DAILY ZACHARY Administration Oxycodone HCl 2.5 mg 09/21/20 13:00 09/23/20 08:50 Oxycodone Hcl (*Crx) 2.5 Mg Tab Ir PO Not Given Q4HR ZACHARY Oxycodone HCl 2.5 mg 09/21/20 11:21 Oxycodone Hcl (*Crx) 2.5 Mg Tab Ir PO Q4H PRN Pain Rated 7-10 Pantoprazole Sodium 40 mg 09/20/20 09:00 09/23/20 08:49 Pantoprazole 40 Mg Tablet PO 10/20/20 09:01 40 mg DAILY ZACHARY Administration Polyethylene Glycol 17 gm 09/21/20 09:00 09/23/20 08:48 Polyethylene Glycol 3350 17 Gm Powd.Pack PO 17 gm QAM ZACHARY Administration Pregabalin 100 mg 09/20/20 09:00 09/23/20 08:56 Pregabalin (*Crx) 50 Mg Capsule PO 100 mg BID [facility] Administration Ropinirole HCl 1 mg 09/20/20 09:00 09/23/20 08:48 Ropinirole Hcl 1 Mg Tablet PO 1 mg TID ZACHARY Administration Senna/Docusate Sodium 2 tab 09/21/20 17:00 09/23/20 08:47 Senna/Docusate Sodium Tablet PO 2 tab BID [facility] Administration Vitamin D 2,000 units 09/20/20 09:00 09/23/20 08:49 Cholecalciferol 1,000 Units Tablet PO 2,000 units DAILY ZACHARY Administration Radiology Results: ITS Impressions Chest X-Ray 09/19/20 20:34 Impression: 1: Right basilar infiltrates may represent atelectasis or developing pneumonia. Intraoperative X-Ray 09/21/20 09:55 IMPRESSION: 1. Oblique fracture of distal fibula in near-anatomic alignment status post open reduction internal fixation. 2. Internal fixation of the tibiofibular syndesmosis. Labs Labs: Laboratory Results - last 24 hr 09/23/20 09/23/20 05:32 05:32 Hgb 11.2 L Hct 35.5 L Total Bilirubin 0.5 Direct Bilirubin 0.0 AST 64 H ALT 64 H Alkaline Phosphatase 249 H Total Protein 6.0 L Albumin 3.6 Quality VTE Prophylaxis VTE prophylaxis: pharmacologic ordered
--- NOTE | 2020-09-23 11:25 | PM.IMPN ---
Progress Note: A&P Assessment and Plan (1) Closed left ankle fracture: Code(s): S82.892A - Other fracture of left lower leg, initial encounter for closed fracture Status: Acute Assessment and Plan: Unstable left ankle fracture sustained in a mechanical fall on 09/13/2020 s/p ORIF on 09/21/[address] Sin management per orthopedic surgery Appreciate PT/OT eval. Weight bearing status per orthopedics analgesics available as needed started on Eliquis per orthopedics for DVT prophylaxis care coordination following for discharge planning. Plan for discharge tomorrow to [facility] (2) Hypertension: Code(s): I10 - Essential (primary) hypertension Status: Acute Assessment and Plan: Blood pressure reviewed and has been generally well controlled. Last BP 146/65 continue diltiazem monitor BP trends (3) Chronic anemia: Code(s): D64.9 - Anemia, unspecified Status: Acute Assessment and Plan: Hemoglobin and hematocrit are stable. Continue p.o. ferrous sulfate (4) Gastroesophageal reflux disease: Code(s): K21.9 - Gastro-esophageal reflux disease without esophagitis Status: Acute Assessment and Plan: no acute issues at this time continue Protonix (5) Idiopathic peripheral neuropathy: Code(s): G60.9 - Hereditary and idiopathic neuropathy, unspecified Status: Acute Assessment and Plan: stable with no acute issues continue Lyrica and ropinirole (6) Transaminitis: Code(s): R74.01 - Elevation of levels of liver transaminase levels Status: Acute Assessment and Plan: Improved. Etiology for this is unclear at this time. Trend LFTs Check hepatitis panel consider further evaluation based on progression (7) Constipation: Code(s): K59.00 - Constipation, unspecified Status: Acute Assessment and Plan: Resolved. docusate/senna p.r.n. recommend limitation of narcotics she will benefit from outpatient bowel regimen of daily MiraLax and Colace to prevent constipation. Subjective Date/time seen: 09/23/20 11:25 Interval history: Date of service: 09/23/20 Rosy Alexander is an 85 year old female with a history of anemia, colon cancer, HTN, RLS who is seen in follow up for acute left ankle fracture. She is status post ORIF left ankle fracture. She is complaining of nausea today and thinks this is related to laxative use. She had a bowel movement this morning. She is tolerating her diet. No episodes of emesis. Denies ankle pain when at rest. With movement,Increases to 3/10. She was able to participate in therapy today and got up to the chair. She denies dizziness or lightheadedness. No shortness breath, cough, or chest pain. Review of Systems Review of Systems: All systems reviewed & are unremarkable except as noted in HPI and below Exam Narrative: Exam Narrative: Ms. Alexander is a well-nourished, well-appearing 85-year-old female who is lying semi recumbent in bed. she appears comfortable and is in NARD. Neuro: awake, alert and oriented x4, speech clear, no focal neuro deficits noted HEENMT: normocephalic, atraumatic, EOMI, sclerae anicteric Neck: supple, no lymphadenopathy Respiratory: clear to auscultation bilaterally, nonlabored breathing Cardio: regular rate, regular rhythm with S1-S2 Abdomen: Nondistended, normoactive bowel sounds, soft, nontender to palpation, no rigidity or guarding Extremities: Left foot is wrapped and splinted. Toes are visible. She is able to wiggle her toes. She has brisk capillary refill bilaterally. Right lower extremity without edema, erythema, or tenderness to palpation, right DP pulse 2+ Skin: no rashes or lesions, warm and dry Psych: appropriate mood and affect, judgment and insight intact Objective Data Vital Signs Vital Signs: Vital Signs - 24 hr 09/22/20 17:40
[2020-09-23 12:58] LABS: Vitamin D 25 Hydroxy 82.9 ng/mL
[2020-09-23 13:14] LABS: Hepatitis B Surface Antigen Negative (Negative)
[2020-09-23 13:19] LABS: HAV RESULT Negative (Negative); Hepatitis B Core IgM Result Negative (Negative)
[2020-09-23 13:31] LABS: Hepatitis C Virus Antibody Negative (Negative)
[2020-09-23 14:05] VITALS: BP 133/61; PULSE 71; RESP 16; TEMP 36.4; O2SAT 98
[2020-09-23 20:37] VITALS: BP 102/63; PULSE 109; RESP 18; TEMP 36.1; O2SAT 97
[2020-09-23] MEDS: ATORVASTATIN 10 MG TABLET PO (20:57)
[2020-09-23] MEDS: MELATONIN 3 MG TABLET PO (20:57)
[2020-09-24] MEDS: ACETAMINOPHEN 500 MG TABLET 1000 MG PO ×3 (00:33→12:36)
[2020-09-24 04:25] VITALS: BP 140/54; PULSE 64; RESP 20; TEMP 36.3; O2SAT 97
[2020-09-24 05:50] LABS: Alanine Aminotransferase 47 U/L (4-35); Albumin Level 3.4 g/dL (3.5-5.1); Alkaline Phosphatase 225 U/L (38-126); Aspartate Amino Transferase 37 U/L (14-36); Bilirubin,Total 0.4 mg/dL (0.2-1.3)
--- NOTE | 2020-09-24 06:18 | PM.PNORT ---
Progress Note: A&P Additional Plan Patient's splint on her left ankle is intact. Pain overall is very well controlled. Her vitamin-D was checked it was 82.9. Plan will be to have patient is transferred to [facility] for continued care while her fracture heals. Instructions for discharge have been put in as well as follow-up instructions. Subjective Subjective Date/Time Seen: 09/24/20 06:18 Objective Data Vital Signs Vital Signs: Vital Signs - 24 hr 09/23/20 08:49 09/23/20 14:05 09/23/20 20:37 Temperature 36.4 C 36.1 C L Pulse Rate 71 109 H Respiratory Rate 16 16 18 Blood Pressure 133/61 102/63 Pulse Oximetry 97 98 97 09/24/20 04:25 Temperature 36.3 C L Pulse Rate 64 Respiratory Rate 20 Blood Pressure 140/54 L Pulse Oximetry 97 Intake/Output Intake/Output: Intake & Output 09/21/20 09/22/20 09/23/20 09/24/20 23:59 23:59 23:59 23:59 Intake Total 1330 1390 1300 240 Output Total 2997 445 3906 Balance -70 1190 300 240 Meds/Results Medications: Active Medications Generic Name Dose Route Start Last Admin Trade Name Freq PRN Reason Stop Dose Admin Acetaminophen 1,000 mg 09/21/20 12:00 09/24/20 00:33 Acetaminophen 500 Mg Tablet PO 1,000 mg Q6HR ZACHARY Administration Apixaban 2.5 mg 09/22/20 09:00 09/23/20 20:57 Apixaban 2.5 Mg Tablet PO 2.5 mg Q12HR ZACHARY Administration Atorvastatin Calcium 10 mg 09/20/20 21:00 09/23/20 20:57 Atorvastatin 10 Mg Tablet PO 10 mg HS ZACHARY Administration Calcium Carbonate 500 mg 09/20/20 09:00 09/23/20 08:47 Calcium/Vitamin D 500 Mg Tablet PO 10/20/20 09:01 500 mg DAILY ZACHARY Administration Diltiazem HCl 240 mg 09/20/20 09:00 09/23/20 08:47 Diltiazem Hcl Cd 240 Mg Cap.Er.24h PO 240 mg DAILY ZACHARY Administration Duloxetine HCl 20 mg 09/20/20 09:00 09/23/20 20:57 Duloxetine Hcl 20 Mg Capsule.Dr PO 20 mg Q12HR ZACHARY Administration Ferrous Sulfate 324 mg 07/09/21 09:00 09/23/20 08:47 Ferrous Sulfate 324 Mg Tablet PO 324 mg DAILY ZACHARY Administration Melatonin 3 mg 09/19/20 21:00 09/23/20 20:57 Melatonin 3 Mg Tablet PO 3 mg HS ZACHARY Administration Multivitamins Therapeutic 1 tablet 09/20/20 09:00 09/23/20 08:48 Multivitamins Therapeutic Tab (*Bkc) PO 1 tablet DAILY ZACHARY Administration Oxybutynin Chloride 10 mg 09/20/20 09:00 09/23/20 08:47 Oxybutynin Chloride Xl 5 Mg Tab.Er.24 PO 10 mg DAILY ZACHARY Administration Oxycodone HCl 2.5 mg 09/21/20 13:00 09/24/20 05:37 Oxycodone Hcl (*Crx) 2.5 Mg Tab Ir PO Not Given Q4HR ZACHARY Oxycodone HCl 2.5 mg 09/21/20 11:21 Oxycodone Hcl (*Crx) 2.5 Mg Tab Ir PO Q4H PRN Pain Rated 7-10 Pantoprazole Sodium 40 mg 09/20/20 09:00 09/23/20 08:49 Pantoprazole 40 Mg Tablet PO 10/20/20 09:01 40 mg DAILY ZACHARY Administration Pregabalin 100 mg 09/20/20 09:00 09/23/20 17:01 Pregabalin (*Crx) 50 Mg Capsule PO 100 mg BID ZACHARY Administration Ropinirole HCl 1 mg 09/20/20 09:00 09/23/20 17:02 Ropinirole Hcl 1 Mg Tablet PO 1 mg TID ZACHARY Administration Senna/Docusate Sodium 2 tab 09/23/20 11:55 Senna/Docusate Sodium Tablet PO BID PRN constipation Vitamin D 2,000 units 09/20/20 09:00 09/23/20 08:49 Cholecalciferol 1,000 Units Tablet PO 2,000 units DAILY ZACHARY Administration Radiology Results: ITS Impressions Chest X-Ray 09/19/20 20:34 Impression: 1: Right basilar infiltrates may represent atelectasis or developing pneumonia. Intraoperative X-Ray 09/21/20 09:55 IMPRESSION: 1. Oblique fracture of distal fibula in near-anatomic alignment status post open reduction internal fixation. 2. Internal fixation of the tibiofibular syndesmosis. Labs Labs: Laboratory Results - last 24 hr 09/23/20 09/23/20 09/24/20 11:17 11:17 05:20 Total Bilirubin 0.4 Direct Bilirubin 0.0 AST 37 H ALT 47 H Alkaline Phosphatase 225 H Total Pro
[2020-09-24] MEDS: DULoxetine HCL 20 MG CAPSULE.DR PO (08:51)
[2020-09-24] MEDS: CHOLECALCIFEROL 1,000 UNITS TABLET 2000 UNITS PO (08:52)
[2020-09-24] MEDS: APIXABAN 2.5 MG TABLET PO (08:52)
[2020-09-24] MEDS: rOPINIRole HCL 1 MG TABLET PO ×2 (08:52→12:36)
[2020-09-24] MEDS: FERROUS SULFATE 324 MG TABLET PO (08:52)
[2020-09-24] MEDS: PANTOPRAZOLE 40 MG TABLET PO (08:52)
[2020-09-24] MEDS: MULTIVITAMINS THERAPEUTIC TAB (*BKC) 1 TABLET PO (08:52)
[2020-09-24] MEDS: PREGABALIN (*CRX) 50 MG CAPSULE 100 MG PO (08:52)
--- NOTE | 2020-09-24 11:06 | PM.DS ---
DS: Admitting Diagnosis Admitting Diagnosis Admitting Diagnosis: Unstable left ankle fracture DS: Discharge Diagnosis Discharge Diagnosis (1) Closed left ankle fracture: Code(s): S82.892A - Other fracture of left lower leg, initial encounter for closed fracture Status: Acute Assessment and Plan: Date of Admission 09/19/20 Date of Discharge 09/24/20 Ms. Alexander is a pleasant 85yo F with history of colon cancer in 2019 status post partial colectomy and chemotherapy, GERD with history of peptic ulcer disease, iron deficiency anemia, idiopathic peripheral neuropathy, restless leg syndrome, dyslipidemia, and hypertension whom the hospitalist service has been asked to directly admit after she was found to have an unstable left ankle fracture. She was seen at [facility] on 09/13/2020 with complaints of left ankle pain after she lost her balance and fell off of a curb. XR showed an acute, oblique fracture of the distal fibula above the level of the tibial plafond and at that time she was told to proceed to [facility] to purchase a walking boot until she could follow-up with Dr. Sin in the office. She has been bearing weight on that ankle since that time, and reports quite a bit of pain and swelling at the site. 09/19 she had an appointment with Dr. Sin and she is now being admitted due to an unstable fracture. She underwent ORIF 09/21/[address] Sin. She was started on Eliquis for DVT prophylaxis per the orthopedic service. She worked with PT/OT and was felt to be a good candidate to continue therapy at a snf facility. She was a bit anxious prior to leaving but overall was doing well and was hemodynamically stable for discharge 09/24/20. Patient and her son, Evan, at the bedside are in agreement of discharge plan today. She has instructions to follow up with Dr Sin's office. (2) Hypertension: Code(s): I10 - Essential (primary) hypertension Status: Acute Assessment and Plan: Stable maintained on her home diltiazem. (3) Chronic anemia: Code(s): D64.9 - Anemia, unspecified Status: Chronic Assessment and Plan: H&H low but stable postoperatively. No evidence of acute bleeding. (4) Gastroesophageal reflux disease: Code(s): K21.9 - Gastro-esophageal reflux disease without esophagitis Status: Chronic Assessment and Plan: No acute issues, continue PPI. (5) Idiopathic peripheral neuropathy: Code(s): G60.9 - Hereditary and idiopathic neuropathy, unspecified Status: Acute Assessment and Plan: Stable with no acute issues. Continue Lyrica and ropinirole. (6) Transaminitis: Code(s): R74.01 - Elevation of levels of liver transaminase levels Status: Acute Assessment and Plan: Improved. Etiology for this is unclear at this time. Trending down prior to discharge. Hepatitis panel negative. Recheck labs in 1 week. (7) Constipation: Code(s): K59.00 - Constipation, unspecified Status: Acute Assessment and Plan: Resolved. Narcotic use was limited. Continue Senna and monitor at [facility]. DS: Summary Hospital Course Hospital Course: See above Time Spent with Patient Time attestation: Total time spent providing and/or coordinating discharge services: 35 minutes Exam Narrative: Exam Narrative: Ms. Alexander is a well-nourished, well-appearing 85-year-old female who is resting comfortably sitting up in bedside chair in no acute distress. Neuro: awake, alert and oriented x4, speech clear, no focal neuro deficits noted HEENMT: normocephalic, atraumatic, EOMI, sclerae anicteric Neck:
== END 2020-09-24 12:47 | DRG 494 ==
PROVIDERS: Orthopaedic Surgery; Physician Assistant; Physician Assistant Surgical; Admitting Provider Family Medicine; PCP Family Medicine; Visit Provider Physician Assistant
PROC: 0QSK04Z Reposition Left Fibula with Internal Fixation Device, Open Approach (ICD-10-PCS; principal; 2020-09-21 07:30)
DX: S82.432A Displaced oblique fracture of shaft of left fibula, initial encounter for closed fracture (principal); S93.432A Sprain of tibiofibular ligament of left ankle, initial encounter; I10 Essential (primary) hypertension; K21.9 Gastro-esophageal reflux disease without esophagitis; G60.9 Hereditary and idiopathic neuropathy, unspecified; R74.01 Elevation of levels of liver transaminase levels; K59.00 Constipation, unspecified; M19.90 Unspecified osteoarthritis, unspecified site; E78.5 Hyperlipidemia, unspecified; H40.9 Unspecified glaucoma; G25.81 Restless legs syndrome; D50.9 Iron deficiency anemia, unspecified; E55.9 Vitamin D deficiency, unspecified; R06.00 Dyspnea, unspecified; N39.3 Stress incontinence (female) (male); Z87.11 Personal history of peptic ulcer disease; Z85.038 Personal history of other malignant neoplasm of large intestine; Z90.49 Acquired absence of other specified parts of digestive tract; Z90.710 Acquired absence of both cervix and uterus; E66.9 Obesity, unspecified; Z68.36 Body mass index [BMI] 36.0-36.9, adult; W17.89XA Other fall from one level to another, initial encounter
CPT/HCPCS: 36415; 71045; 80053; 80061; 80074; 80076; 80307; 82306; 83735; 85014; 85018; 85027; 85610; 85730; 93005; 93306; 97110; 97163; 97165; 97530; 97535; A9270; C1713; G0378; J0690; J1100; J2405; J2704; J3010; J3370; J7120

== ENCOUNTER 2020-10-10 19:41 | Inpatient (IN) | payer MEDICARE, SELFPAY ==
[2020-10-10] VITALS (8 sets, daily range): BP systolic 100–147; BP diastolic 62–91; PULSE 78–100; RESP 17–22; TEMP 38.2; O2SAT 95–98
--- NOTE | ~2020-10-10 | XR_ITS ---
EXAMINATION: XR chest 1V portable INDICATION: Hypoxia and fever TECHNIQUE: Portable AP chest at 2027 hours COMPARISON: 09/19/2020 FINDINGS: A right internal jugular Port-A-Cath ends with its tip at the superior cavoatrial junction. There are diffuse interstitial and airspace opacities throughout all lung zones. No pleural effusion or pneumothorax is identified. The cardiomediastinal silhouette is stable. IMPRESSION: 1. Diffuse lung disease which could reflect atelectasis and/or pneumonia/or pulmonary edema. Reviewed, dictated and finalized at location A. IMPRESSION: 1. Diffuse lung disease which could reflect atelectasis and/or pneumonia/or pul monary edema.
--- NOTE | 2020-10-10 20:16 | ECG_ITS ---
Measurements Intervals [place] Rate: 91 P: 42 CA: 183 QRS: -23 QRSD: 85 T: 1 QT: 375 QTc: 462 Interpretive Statements SINUS RHYTHM DELAYED PRECORDIAL R/S TRANSITION VOLTAGE CRITERIA FOR LVH BORDERLINE T WAVE ABNORMALITY- INFERIOR LEADS BASELINE ARTIFACT- I, II, V3-V5 BORDERLINE ECG Electronically Signed On 10-11-2020 6:47:45 CDT by Cruz Barragan D.O.
[2020-10-10 20:40] LABS: Basophils Absolute Auto 0.1 K/mm3 (0.0-0.1); Basophils Percent Auto 0.5 % (0.2-1.2); Eosinophils Absolute Auto 0.2 K/mm3 (0-0.3); Eosinophils Percent Auto 1.5 % (0-4.4); Hematocrit 38.2 % (37.0-47.0); Hemoglobin 12.1 g/dL (12.0-15.0); Immature Granulocyte Absolute 0.05 K/mm3 (0.00-0.031); Immature Granulocyte Percent A 0.5 % (0-0.5); Lymphocytes Absolute Auto 0.71 K/mm3 (0.9-3.2); Lymphocytes Percent Auto 6.8 % (18.3-44.2); Mean Corpuscular HGB Conc 31.7 g/dl (32-36); Mean Corpuscular Hemoglobin 30.4 pg (26-34); Mean Platelet Volume 10.7 fl (7.4-10.4); Monocytes Absolute Auto 1.5 K/mm3 (0.1-0.6); Monocytes Percent Auto 13.9 % (2.6-8.5); Neutrophils Percent Auto 76.8 % (45.5-73.1); Platelet Count Result 231 k/mm3 (150-375); Red Blood Count 3.98 M/mm3 (4.2-5.4); Red Cell Distribution Width 13.9 % (11.5-14.5); White Blood Count 10.4 K/mm3 (4.5-10.0)
[2020-10-10 20:49] LABS: Lactic Acid Reflex 1.9 mmol/L (0.7-2.1)
[2020-10-10 21:00] LABS: Alanine Aminotransferase 47 U/L (4-35); Albumin Level 3.6 g/dL (3.5-5.1); Alkaline Phosphatase 228 U/L (38-126); Anion Gap 8 mmol/L (8-16); Aspartate Amino Transferase 91 U/L (14-36); Bilirubin,Total 0.6 mg/dL (0.2-1.3); Blood Urea Nitrogen 12 mg/dL (7-17); Calcium 9.2 mg/dL (8.4-10.2); Carbon Dioxide 28 mmol/L (22-30); Chloride 102 mmol/L (98-107); Estimated Glomerular Filt Rate > 60; Glucose 124 mg/dL (65-110); Potassium 4.1 mmol/L (3.4-5.0); Sodium 138 mmol/L (137-145)
[2020-10-10 21:02] LABS: Add Urine Microscopic? YES; Appearance Urine Turbid (Clear); Bacteria Urine 1+ /hpf; Bilirubin Urine Negative (Negative); Blood Urine Negative (Negative); Color Urine Amber (Yellow); Glucose Urine UA Negative (Negative); Ketones Urine Negative (Negative); Leukocyte Esterase Ur 3+ LEU/UL (Negative); Nitrate Urine Positive (Negative); Protein Urine 1+ mg/dL (Negative); RBC Urine 21-50 /hpf (0-2); Specific Grav Ur 1.017 (1.001-1.035); Squamous Epithelial Cell Urine Many /hpf (Few); Urobilinogen Urine Negative mg/dL (<2.0); WBC Clumps Urine Present /HPF; WBC Urine >75 /hpf
--- NOTE | 2020-10-10 21:08 | ED.GENADULT ---
HPI - General Adult General Chief complaint: Altered Mental Status Stated complaint: ams/fever Time Seen by Provider: 10/10/20 19:47 Source: patient and EMS History of Present Illness HPI narrative: Patient is a 85 y/o female sent from [facility] for fever and altered mental status. Patient states that she had fever of 102.8 earlier today. There is no known alleviating or exacerbating factor. She also has slight cough. She states that she slept all day today. Related Data Home Medications Medication Instructions Recorded Confirmed duloxetine 20 mg capsule,delayed 20 mg PO BID 01/17/19 10/11/20 release Calcium 600 + D(3) 1 cap PO DAILY 02/10/19 10/11/20 cholecalciferol (vitamin D3) 2,000 unit PO DAILY 02/10/19 10/11/20 [Vitamin D3] melatonin 3 mg PO HS 02/10/19 10/11/20 multivitamin 1 tablet PO DAILY 02/10/19 10/11/20 pregabalin 100 mg capsule 100 mg PO BID 10/25/19 10/11/20 omeprazole magnesium [Prilosec OTC] 20 mg PO DAILY 12/13/19 10/11/20 diltiazem HCl [Cartia XT] 240 mg PO DAILY 09/13/20 10/11/20 ropinirole 1 mg PO TID 09/13/20 10/11/20 atorvastatin 10 mg PO DAILY 09/19/20 10/11/20 cyanocobalamin (vitamin B-12) 500 mcg BYMOUTH DAILY 10/11/20 10/11/20 Allergies Allergy/AdvReac Type Severity Reaction Status Date / Time ibuprofen Allergy Severe BLEEDING Verified 09/13/20 14:28 ULCER pseudoephedrine AdvReac Mild N/V Verified 09/13/20 14:28 naproxen AdvReac Unknown ULCER Verified 09/13/20 14:28 Review of Systems Constitutional: Constitutional: Denies chills, Reports fever(s), Denies headache(s) and Reports weakness Eyes: Eyes: Denies blurry vision ENT: Denies headache(s) and Denies neck pain Cardiovascular: Cardiovascular: Denies chest pain and Denies dyspnea Respiratory: Respiratory: Reports cough and Denies dyspnea Gastrointestinal: Gastrointestinal: Denies abdominal pain, Denies diarrhea, Denies nausea and Denies vomiting Genitourinary: Genitourinary: Denies hematuria and Denies dysuria Musculoskeletal: Musculoskeletal: Denies back pain and Denies neck pain Neurologic: Denies headache(s) and Denies weakness PMFSH Past Medical History Medical History Arthritis Cataract left Chronic anemia Chronic low back pain Colon cancer (12/2018) Status post partial colectomy and chemotherapy. Dyslipidemia Frequent falls Gastroesophageal reflux disease Glaucoma History of kidney stones History of stress test Negative stress test around 2004. Hypertension Idiopathic peripheral neuropathy Osteoarthritis Peptic ulcer (2002) Restless leg syndrome Stress incontinence Vitamin D deficiency Surgical History Surgical History History of appendectomy History of cholecystectomy (01/06/19) Laparoscopic cholecystectomy with IOC. History of lithotripsy History of orthopedic surgery Pinning left hip fracture. History of right hemicolectomy (01/06/19) Right hemicolectomy with anastomosis distal ileum to transverse colon. History of total hysterectomy Family History Family History Father Hypertension Family history of cardiovascular disease Mother Family history of cardiovascular disease Sibling Family history of cardiovascular disease Other Arthritis Social History Social History Social History: Surrogate decision maker: Daphne Kelly, daughter. Code status: Full code. Smoking status: Never smoker Second hand tobacco smoke exposure: No Alcohol intake: never Substance use: never Substance use type: does not use Additional living arrangements comments: The patient lives in her own home in [place]. 2 grown children. Additional occupation/education comments: Retired. Gender identity (if verbalized by the patient): Female Spiritual care concerns
[2020-10-10] MEDS: ACETAMINOPHEN 325 MG TABLET 650 MG PO (21:53)
[2020-10-11 01:10] VITALS: BP 144/65; PULSE 73; RESP 20; TEMP 36.7; O2SAT 98; BMI 33.4
--- NOTE | 2020-10-11 01:19 | ADMGEN ---
This patient, Rosy Alexander, was admitted to [address] [place] [address] Room 311-01. Patient/family oriented to hospital policies and general routines including ID bracelet, bed and alarms, visiting hours, pain management, procedures, bathroom and other care routines, personal items, smoking policy, room service/diet, and visiting hours. Information on how to activate the Rapid Response Team has been discussed. Patient/Family are encouraged to report perceived risks to care and to ask questions if they do not understand what they are told or what they should do.
--- NOTE | 2020-10-11 03:29 | PM.IMHP ---
H&P: HPI History of Present Illness Date/Time: 10/11/20 03:29 Chief Complaint: ALTERED MENTAL STATUS Narrative: THIS IS AN 85-YEAR-OLD FEMALE WITH PAST MEDICAL HISTORY SIGNIFICANT FOR ATRIAL FIBRILLATION, ON CHRONIC ANTICOAGULATION, GERD, PERIPHERAL NEUROPATHY, RESTLESS LEG SYNDROME: IRON DEFICIENCY ANEMIA, DYSLIPIDEMIA. PATIENT SUFFER LEFT ANKLE FRACTURE 2 WEEKS AGO SHE UNDERWENT SURGERY AND WAS DISCHARGED TO [facility] WITH REHABILITATION FOR SHE HAS BEEN LIVING FOR THE LAST 2 WEEKS TODAY SHE WAS BROUGHT TO THE EMERGENCY ROOM AFTER STAFF REPORTED THAT PATIENT HAD NOT BEEN HERSELF HAS HAD POOR ORAL INTAKE AND HAS BEEN SLEEPING MOST OF THE DAY. PATIENT STATES THAT SHE HAS HAD POOR APPETITE BUT DENIES ANY NAUSEA VOMITING ABDOMINAL PAIN PAIN OR BURNING WITH URINATION NO CHEST PAIN NO SHORTNESS OF BREATH NO COUGH NO SPUTUM PRODUCTION NO FEVERS NO RIGORS NO CHILLS. PRELIMINARY WORKUP WAS SIGNIFICANT FOR URINALYSIS WITH SIGNIFICANT WBC'S. Review of Systems Review of Systems: POOR APPETITE ALTERED MENTAL STATUS Constitutional: Constitutional: Denies chills, Reports lethargy and Reports poor appetite Eyes: Eyes: Denies change in vision ENT: Reports system reviewed and no additional complaints, except as documented Cardiovascular: Cardiovascular: Denies edema, Denies irregular heart rhythm, Denies leg edema, Denies lightheadedness, Denies radiating jaw, neck or arm pain, Denies palpitations and Denies dyspnea Respiratory: Respiratory: Denies cough and Denies dyspnea Gastrointestinal: Gastrointestinal: Denies abdominal pain, Denies dyspepsia and Denies heartburn Genitourinary: Genitourinary: Reports no additional female genitourinary complaints Musculoskeletal: Comments: LEFT ANKLE FRACTURE STATUS POST ORIF Integumentary/Breasts: Skin/Breast: Reports system reviewed and no additional complaints, except as docu Neurologic: Reports system reviewed and no additional complaints, except as documented Psychiatric: Psychiatric: Reports no additional psychiatric complaints Endocrine: Endocrine: Reports no additional endocrine complaints Hematologic/Lymphatic: Hematologic/Lymphatic: Reports no additional hematologic/lymphatic complaints Allergic/Immunologic: Allergic/Immunologic: Reports no additional allergic/immunologic complaints [facility] Past Medical History Medical History Arthritis Cataract left Chronic anemia Chronic low back pain Colon cancer (12/2018) Status post partial colectomy and chemotherapy. Dyslipidemia Frequent falls Gastroesophageal reflux disease Glaucoma History of kidney stones History of stress test Negative stress test around 2004. Hypertension Idiopathic peripheral neuropathy Osteoarthritis Peptic ulcer (2002) Restless leg syndrome Stress incontinence Vitamin D deficiency Surgical History Surgical History History of appendectomy History of cholecystectomy (01/06/19) Laparoscopic cholecystectomy with IOC. History of lithotripsy History of orthopedic surgery Pinning left hip fracture. History of right hemicolectomy (01/06/19) Right hemicolectomy with anastomosis distal ileum to transverse colon. History of total hysterectomy Family History Family History Father Hypertension Family history of cardiovascular disease Mother Family history of cardiovascular disease Sibling Family history of cardiovascular disease Other Arthritis Social History Social History Social History: Surrogate decision maker: Daphne Kelly, daughter. Code status: Full code. Smoking status: Never smoker Second hand tobacco smoke exposure: No Alcohol intake: never Substance use: never Substance use type: does not use Additional living arrangements comments: The patient lives in her own home
[2020-10-11 03:44] VITALS: BP 132/53; PULSE 64; RESP 20; TEMP 36.8; O2SAT 97
[2020-10-11] MEDS: SODIUM CHLORIDE 0.9% IV 1,000 ML 125 ML IV CONT (05:45)
[2020-10-11 08:00] VITALS: BP 160/59; PULSE 71; RESP 16; TEMP 36.5; O2SAT 100
[2020-10-11] MEDS: PREGABALIN (*CRX) 50 MG CAPSULE 100 MG PO ×2 (09:09→18:24)
[2020-10-11 12:00] VITALS: BP 155/74; PULSE 73; RESP 20; TEMP 36.6; O2SAT 100
[2020-10-11] MEDS: CHOLECALCIFEROL 1,000 UNITS TABLET 2000 UNITS PO (12:52)
[2020-10-11] MEDS: MULTIVITAMINS THERAPEUTIC TAB (*BKC) 1 TABLET PO (12:53)
[2020-10-11] MEDS: FERROUS SULFATE 324 MG TABLET PO (12:53)
[2020-10-11] MEDS: rOPINIRole HCL 1 MG TABLET PO ×3 (12:53→20:33)
[2020-10-11] MEDS: PANTOPRAZOLE 40 MG TABLET PO (12:53)
[2020-10-11] MEDS: CYANOCOBALAMIN 500 MCG TABLET BY MOUTH (12:54)
[2020-10-11] MEDS: DULoxetine HCL 20 MG CAPSULE.DR PO ×2 (12:54→18:24)
[2020-10-11] MEDS: APIXABAN 2.5 MG TABLET PO ×2 (12:54→20:32)
--- NOTE | 2020-10-11 14:43 | PM.IMPN ---
Progress Note: A&P Assessment and Plan (1) COVID-19 ruled out: Code(s): Z20.822 - Contact with and (suspected) exposure to COVID-19 Status: Acute Assessment and Plan: via triage note from EMS the patient was picked up from [facility] and found to be hypoxic and she was placed on 3 L of oxygen with an O2 between 93 94%. She also had a fever by EMS on arrival. Since she came from a living facility and was hypoxic with a chest xray showing diffuse lung disease which could show atelectasis versus pneumonia versus pulmonary edema, she was decided to be swab for COVID-19. She is currently in isolation. She is currently on room air resting comfortably. She has been afebrile. Pending COVID lab. Low likelihood she has COVID but will continue monitoring. (2) Sepsis: Qualifiers: Sepsis acute organ dysfunction status: unspecified Sepsis type: sepsis due to unspecified organism Qualified Code(s): A41.9 - Sepsis, unspecified organism Code(s): A41.9 - Sepsis, unspecified organism Status: Acute Assessment and Plan: she met criteria for sepsis in the setting of leukocytosis, fever, altered mental status in the setting of urinary tract infection vital signs are much improved today. Continue IV antibiotics. Pending blood cultures and urine cultures at this time. (3) Acute metabolic encephalopathy: Code(s): G93.41 - Metabolic encephalopathy Status: Acute Assessment and Plan: Most likely secondary to underlying urinary tract infection. Continue IV antibiotics. She sees the back to her baseline at this time. Continue monitoring. (4) UTI (urinary tract infection): Qualifiers: Hematuria presence: without hematuria Urinary tract infection type: site unspecified Qualified Code(s): N39.0 - Urinary tract infection, site not specified Code(s): N39.0 - Urinary tract infection, site not specified Status: Acute Assessment and Plan: Believe her altered mental status and fever was from a urinary tract infection. She is on IV Rocephin at this time with improvement of her symptoms today. She has otherwise been afebrile since admission, non tachycardic, normal oxygenation on room air. Continue monitoring for urine culture results continue monitoring symptoms. Make adjustments if needed. (5) HTN (hypertension): Qualifiers: Hypertension type: essential hypertension Qualified Code(s): I10 - Essential (primary) hypertension Code(s): I10 - Essential (primary) hypertension Status: Acute Assessment and Plan: Blood pressure has been slightly elevated today 155/74. Continue home medications. Make adjustments if needed. (6) RLS (restless legs syndrome): Code(s): G25.81 - Restless legs syndrome Status: Acute Assessment and Plan: CONTINUE ROPINIROLE (7) GERD (gastroesophageal reflux disease): Code(s): K21.9 - Gastro-esophageal reflux disease without esophagitis Status: Acute Assessment and Plan: CONTINUE PPI (8) Closed left ankle fracture: Code(s): S82.892A - Other fracture of left lower leg, initial encounter for closed fracture Status: Acute Assessment and Plan: At SNF facility. Will continue with PT/OT while she is here. She is nonweightbearing to left leg for a few more weeks, per patient. Pain otherwise tolerated at this time. (9) Frequent falls: Code(s): R29.6 - Repeated falls Status: Acute Assessment and Plan: Continue with
[2020-10-11 16:00] VITALS: BP 118/68; PULSE 90; RESP 21; TEMP 36.8; O2SAT 96
[2020-10-11 18:52] LABS: SARS-CoV-2 RNA PCR Negative
[2020-10-11 20:00] VITALS: BP 137/74; PULSE 69; RESP 20; TEMP 37; O2SAT 100
[2020-10-11] MEDS: MELATONIN 3 MG TABLET PO (20:32)
[2020-10-11] MEDS: ATORVASTATIN 10 MG TABLET PO (20:32)
[2020-10-12] VITALS (8 sets, daily range): BP systolic 124–181; BP diastolic 53–77; PULSE 66–74; RESP 18–20; TEMP 36.5–36.9; O2SAT 93–100
[2020-10-12 06:01] LABS: Basophils Absolute Auto 0.1 K/mm3 (0.0-0.1); Eosinophils Absolute Auto 0.5 K/mm3 (0-0.3); Eosinophils Percent Auto 8.3 % (0-4.4); Hematocrit 37.2 % (37.0-47.0); Hemoglobin 11.6 g/dL (12.0-15.0); Immature Granulocyte Absolute 0.04 K/mm3 (0.00-0.031); Immature Granulocyte Percent A 0.7 % (0-0.5); Lymphocytes Absolute Auto 1.64 K/mm3 (0.9-3.2); Lymphocytes Percent Auto 27.7 % (18.3-44.2); Mean Corpuscular HGB Conc 31.2 g/dl (32-36); Mean Corpuscular Hemoglobin 29.9 pg (26-34); Mean Corpuscular Volume 95.9 fl (80-100); Mean Platelet Volume 10.8 fl (7.4-10.4); Monocytes Absolute Auto 1.2 K/mm3 (0.1-0.6); Monocytes Percent Auto 20.3 % (2.6-8.5); Neutrophils Absolute Auto 2.5 K/mm3 (1.3-6.7); Platelet Count Result 230 k/mm3 (150-375); Red Blood Count 3.88 M/mm3 (4.2-5.4); Red Cell Distribution Width 13.8 % (11.5-14.5); White Blood Count 5.9 K/mm3 (4.5-10.0)
[2020-10-12 06:13] LABS: Alanine Aminotransferase 31 U/L (4-35); Albumin Level 3.2 g/dL (3.5-5.1); Alkaline Phosphatase 174 U/L (38-126); Anion Gap 6 mmol/L (8-16); Aspartate Amino Transferase 35 U/L (14-36); Bilirubin,Total 0.3 mg/dL (0.2-1.3); Blood Urea Nitrogen 13 mg/dL (7-17); Carbon Dioxide 28 mmol/L (22-30); Chloride 105 mmol/L (98-107); Estimated CRCL calculation 61 ml/min; Estimated Glomerular Filt Rate > 60; Glucose 95 mg/dL (65-110); Potassium 4.4 mmol/L (3.4-5.0); Sodium 139 mmol/L (137-145)
[2020-10-12] MEDS: CHOLECALCIFEROL 1,000 UNITS TABLET 2000 UNITS PO (09:16)
[2020-10-12] MEDS: CYANOCOBALAMIN 500 MCG TABLET BY MOUTH (09:17)
[2020-10-12] MEDS: FERROUS SULFATE 324 MG TABLET PO (09:17)
[2020-10-12] MEDS: MULTIVITAMINS THERAPEUTIC TAB (*BKC) 1 TABLET PO (09:17)
[2020-10-12] MEDS: APIXABAN 2.5 MG TABLET PO ×2 (09:17→22:00)
[2020-10-12] MEDS: PANTOPRAZOLE 40 MG TABLET PO (09:17)
[2020-10-12] MEDS: DULoxetine HCL 20 MG CAPSULE.DR PO ×2 (09:17→17:55)
[2020-10-12] MEDS: PREGABALIN (*CRX) 50 MG CAPSULE 100 MG PO ×2 (09:22→17:54)
--- NOTE | 2020-10-12 13:04 | PM.IMPN ---
Progress Note: A&P Assessment and Plan (1) COVID-19 ruled out: Code(s): Z20.822 - Contact with and (suspected) exposure to COVID-19 Status: Acute Assessment and Plan: Hypoxic in route to ED and she was placed on 3 L of oxygen with an O2 between 93 94% Febrile on admission CXR showing diffuse lung disease which could show atelectasis versus pneumonia versus pulmonary edema COVID-19 pcr pending Isolation, droplet precautions Now on RA and afebrile (2) Sepsis: Qualifiers: Sepsis acute organ dysfunction status: unspecified Sepsis type: sepsis due to unspecified organism Qualified Code(s): A41.9 - Sepsis, unspecified organism Code(s): A41.9 - Sepsis, unspecified organism Status: Acute Assessment and Plan: Leukocytosis, fever, AMS on admission 2/2 urinary tract infection Continue IV antibiotics BC NGTD UC-->Greater than 100,000 CFU/mL of Citrobacter braakii (3) Acute metabolic encephalopathy: Code(s): G93.41 - Metabolic encephalopathy Status: Acute Assessment and Plan: Resolved Likely 2/2 UTI Continue IV antibiotics (4) UTI (urinary tract infection): Qualifiers: Hematuria presence: without hematuria Urinary tract infection type: site unspecified Qualified Code(s): N39.0 - Urinary tract infection, site not specified Code(s): N39.0 - Urinary tract infection, site not specified Status: Acute Assessment and Plan: Continue IV Rocephin Greater than 100,000 CFU/mL of Citrobacter braakii Will await sensitivity (5) HTN (hypertension): Qualifiers: Hypertension type: essential hypertension Qualified Code(s): I10 - Essential (primary) hypertension Code(s): I10 - Essential (primary) hypertension Status: Acute Assessment and Plan: Elevated this morning Continue home medications. Consider added additional agent if persists (6) RLS (restless legs syndrome): Code(s): G25.81 - Restless legs syndrome Status: Acute Assessment and Plan: CONTINUE ROPINIROLE (7) GERD (gastroesophageal reflux disease): Code(s): K21.9 - Gastro-esophageal reflux disease without esophagitis Status: Acute Assessment and Plan: CONTINUE PPI (8) Closed left ankle fracture: Code(s): S82.892A - Other fracture of left lower leg, initial encounter for closed fracture Status: Acute Assessment and Plan: From SNF facility Continue with PT/OT while admitted [facility] for a few more weeks, per patient Supportive care (9) Frequent falls: Code(s): R29.6 - Repeated falls Status: Acute Assessment and Plan: Continue with PT/OT Return back to SNF after discharge (10) Chronic anemia: Code(s): D64.9 - Anemia, unspecified Status: Chronic Assessment and Plan: H&H is stable Continue iron supplementation No acute signs of bleeding Subjective Date/time seen: 10/12/20 13:04 Interval history: Pt seen and evaluated; no acute events overnight; tolerating diet; no new complaints; pt is eager to return to [facility] Review of Systems Review of Systems: All systems reviewed & are unremarkable except as noted in HPI and below Exam Const: General: no acute distress, alert and awake Orientation/consciousness: patient oriented x3 HENMT: Head: normocephalic and atraumatic Ears: hearing grossly normal bilaterally and external ears normal Face and sinus: face symmetric Mouth: Yes Normal oral and palatal mucosa present Eyes: Pupils: Equal, round and reactive pupils present EOM: EOMs intact bilaterally Neck: Neck: full ROM, trachea midline and no JVD Thyroid: thyroid normal Chest: Chest palpation & inspection: normal inspection of the chest Resp: Effort & Inspection: normal respiratory effort Auscultation: clear to auscultation bilaterally Card
[2020-10-12] MEDS: rOPINIRole HCL 1 MG TABLET PO (17:54)
[2020-10-12] MEDS: MELATONIN 3 MG TABLET PO (21:59)
[2020-10-12] MEDS: ATORVASTATIN 10 MG TABLET PO (22:00)
[2020-10-13 04:00] VITALS: BP 154/69; PULSE 66; RESP 20; TEMP 36.5; O2SAT 98
[2020-10-13 06:00] VITALS: BP 128/66; PULSE 82; RESP 20; TEMP 36.6; O2SAT 100
[2020-10-13 08:34] VITALS: BP 158/69; PULSE 70; RESP 18; TEMP 36.4; O2SAT 97
[2020-10-13] MEDS: APIXABAN 2.5 MG TABLET PO (08:45)
[2020-10-13] MEDS: PREGABALIN (*CRX) 50 MG CAPSULE 100 MG PO (08:45)
[2020-10-13] MEDS: DULoxetine HCL 20 MG CAPSULE.DR PO (08:45)
[2020-10-13] MEDS: PANTOPRAZOLE 40 MG TABLET PO (08:46)
[2020-10-13] MEDS: MULTIVITAMINS THERAPEUTIC TAB (*BKC) 1 TABLET PO (08:46)
[2020-10-13] MEDS: FERROUS SULFATE 324 MG TABLET PO (08:46)
[2020-10-13] MEDS: CYANOCOBALAMIN 500 MCG TABLET BY MOUTH (08:46)
[2020-10-13] MEDS: rOPINIRole HCL 1 MG TABLET PO (08:46)
[2020-10-13] MEDS: CHOLECALCIFEROL 1,000 UNITS TABLET 2000 UNITS PO (08:46)
[2020-10-13 14:00] VITALS: BP 128/60; PULSE 74; RESP 18; TEMP 36.1; O2SAT 98
--- NOTE | 2020-10-13 15:51 | PM.DS ---
DS: Admitting Diagnosis Admitting Diagnosis Altered mental status DS: Discharge Diagnosis Discharge Diagnosis (1) COVID-19 ruled out: Code(s): Z20.822 - Contact with and (suspected) exposure to COVID-19 Status: Acute Assessment and Plan: R/o Hypoxic in route to ED and she was placed on 3 L of oxygen with an O2 between 93 94% Febrile on admission CXR showing diffuse lung disease which could show atelectasis versus pneumonia versus pulmonary edema COVID-19 pcr pending Isolation, droplet precautions Now on RA and afebrile (2) Sepsis: Qualifiers: Sepsis acute organ dysfunction status: unspecified Sepsis type: sepsis due to unspecified organism Qualified Code(s): A41.9 - Sepsis, unspecified organism Code(s): A41.9 - Sepsis, unspecified organism Status: Acute Assessment and Plan: Resolved Leukocytosis, fever, AMS on admission 2/2 urinary tract infection S/p IV antibiotics BC NGTD UC-->Greater than 100,000 CFU/mL of Citrobacter braakii (3) Acute metabolic encephalopathy: Code(s): G93.41 - Metabolic encephalopathy Status: Acute Assessment and Plan: Resolved Likely 2/2 UTI S/p IV antibiotics (4) UTI (urinary tract infection): Qualifiers: Hematuria presence: without hematuria Urinary tract infection type: site unspecified Qualified Code(s): N39.0 - Urinary tract infection, site not specified Code(s): N39.0 - Urinary tract infection, site not specified Status: Acute Assessment and Plan: S/p IV Rocephin Greater than 100,000 CFU/mL of Citrobacter braakii (5) HTN (hypertension): Qualifiers: Hypertension type: essential hypertension Qualified Code(s): I10 - Essential (primary) hypertension Code(s): I10 - Essential (primary) hypertension Status: Acute Assessment and Plan: Elevated this morning Continue home medications. Consider added additional agent if persists (6) RLS (restless legs syndrome): Code(s): G25.81 - Restless legs syndrome Status: Acute Assessment and Plan: CONTINUE ROPINIROLE (7) GERD (gastroesophageal reflux disease): Code(s): K21.9 - Gastro-esophageal reflux disease without esophagitis Status: Acute Assessment and Plan: CONTINUE PPI (8) Closed left ankle fracture: Code(s): S82.892A - Other fracture of left lower leg, initial encounter for closed fracture Status: Acute Assessment and Plan: From SNF facility Continue with PT/OT while admitted [facility] for a few more weeks, per patient Supportive care (9) Frequent falls: Code(s): R29.6 - Repeated falls Status: Acute Assessment and Plan: Continue with PT/OT Return SNF (10) Chronic anemia: Code(s): D64.9 - Anemia, unspecified Status: Chronic Assessment and Plan: H&H is stable Continue iron supplementation No acute signs of bleeding DS: Summary Hospital Course Hospital Course: 85 year old lady with PMH significant atrial fibrillation, on chronic anticoagulation, peripheral neuropathy, RLS and dyslipidemia presented to the ED with mental status changes, lethargy and poor appetite. She had a left ankle fracture 2 weeks ago and has been in rehab at a SNF. She was hypoxic in route to ED; and she did meet sepsis criteria on admission. She was febrile with leukocytosis and AMS. She was diagnosed with a UTI and treated with IV antibiotics. She was under investigation for COVID and has tested negative. She is back to her baseline and is stable for discharge. She will be discharged with oral antibiotics. She has been advised to keep her follow up appointments as scheduled. Time Spent with Patient Time attestation: Total time spent providing and/or coordinating discharge services:55 Exam Const: General: no acute distress, alert and awake Orientation/consciousness: patient oriented x3 HENMT: Head: normocephalic and atraum
== END 2020-10-13 17:45 | DRG 871 ==
LOC: ANHED 23:05 → ANH3MEDSUR 10-11 00:28
PROVIDERS: Physician Assistant; Admitting Provider Internal Medicine; Emergency Provider Emergency Medicine; PCP Family Medicine; Visit Provider Internal Medicine
DX: A41.9 Sepsis, unspecified organism (principal); G93.41 Metabolic encephalopathy; N39.0 Urinary tract infection, site not specified; E78.5 Hyperlipidemia, unspecified; I10 Essential (primary) hypertension; G25.81 Restless legs syndrome; K21.9 Gastro-esophageal reflux disease without esophagitis; I48.91 Unspecified atrial fibrillation; Z79.01 Long term (current) use of anticoagulants; D64.9 Anemia, unspecified; Z20.822 Contact with and (suspected) exposure to COVID-19; S82.892D Other fracture of left lower leg, subsequent encounter for closed fracture with routine healing; R29.6 Repeated falls
CPT/HCPCS: 36415; 71045; 80053; 81001; 83605; 85025; 87040; 87077; 87086; 87088; 87186; 93005; 96365; 97110; 97161; 97165; 97535; 99285; A9270; C9803; G0378; J0696; J7030; U0003; U0005

== ENCOUNTER 2020-10-24 11:45 | Emergency (ER) | payer MEDICARE, SELFPAY ==
--- NOTE | ~2020-10-24 | XR_ITS ---
EXAMINATION: XR knee RT 3V DATE: 10/24/2020 14:11 INDICATION: Right knee pain. TECHNIQUE: 3 views of right knee were obtained. COMPARISON: None. FINDINGS: Bone alignment is normal. No fracture. There is moderate tricompartmental osteoarthritis. T here is a large knee joint effusion. IMPRESSION: 1. Moderate right knee osteoarthritis. 2. Large right knee joint effusion. Reviewed, dictated and finalized at location A.
--- NOTE | ~2020-10-24 | XR_ITS ---
EXAMINATION: XR chest 1V DATE: 10/24/2020 14:10 INDICATION: Shortness of breath. TECHNIQUE: A single frontal view of the chest was obtained. COMPARISON: Chest single view 10/10/2020, CT abdomen and pelvis 09/20/2019 FINDINGS: The lung volumes are small. A calcified left lung nodule and calcified left hilar lymph nod e consistent with old granulomatous disease. There are airspace opacities in the mid and lower lung z ones. No pleural effusion or pneumothorax. Cardiomegaly is noted. There is a right internal jugular p ort with tip in proximal right atrium. IMPRESSION: 1. Small lung volumes with worsened airspace opacities in the mid and lower lung zones, consistent wi th atelectasis versus pneumonia. 2. Cardiomegaly. Reviewed, dictated and finalized at location A. IMPRESSION: 1. Small lung volumes with worsened airspace opacities in the mid and lower mikki g zones, consistent with atelectasis versus pneumonia. 2. Cardiomegaly.
[2020-10-24 11:48] VITALS: BP 126/61; PULSE 82; RESP 16; TEMP 37; O2SAT 100
--- NOTE | 2020-10-24 13:36 | ED.GENADULT ---
HPI - General Adult General Chief complaint: Extremity Problem,Nontraumatic Stated complaint: leg pain Time Seen by Provider: 10/24/20 13:13 Source: patient and family (daughter) Mode of arrival: EMS Limitations: no limitations History of Present Illness HPI narrative: Patient has been having pain on the right side of her body for several days now. She was seen here for an ankle fracture and repaired in mid September. The facility that where she resides did a Doppler study of her right leg, did not see a thrombus but did see a Jim's cyst. Also has erythema in her right arm for unknown reason. She has not fallen, she can move her arm. Her daughter states that she did have an episode of confusion several days ago was treated for a UTI with IM Rocephin and is now at baseline mental status. Patient is a fairly good historian. Onset (ago): day(s) Related Data Home Medications Medication Instructions Recorded Confirmed duloxetine 20 mg capsule,delayed 20 mg PO BID 01/17/19 10/11/20 release Calcium 600 + D(3) 1 cap PO DAILY 02/10/19 10/11/20 cholecalciferol (vitamin D3) 2,000 unit PO DAILY 02/10/19 10/11/20 [Vitamin D3] melatonin 3 mg PO HS 02/10/19 10/11/20 multivitamin 1 tablet PO DAILY 02/10/19 10/11/20 pregabalin 100 mg capsule 100 mg PO BID 10/25/19 10/11/20 omeprazole magnesium [Prilosec OTC] 20 mg PO DAILY 12/13/19 10/11/20 diltiazem HCl [Cartia XT] 240 mg PO DAILY 09/13/20 10/11/20 ropinirole 1 mg PO TID 09/13/20 10/11/20 atorvastatin 10 mg PO DAILY 09/19/20 10/11/20 cyanocobalamin (vitamin B-12) 500 mcg BYMOUTH DAILY 10/11/20 10/11/20 Allergies Allergy/AdvReac Type Severity Reaction Status Date / Time ibuprofen Allergy Severe BLEEDING Verified 09/13/20 14:28 ULCER pseudoephedrine AdvReac Mild N/V Verified 09/13/20 14:28 naproxen AdvReac Unknown ULCER Verified 09/13/20 14:28 Review of Systems Review of Systems: All systems reviewed & are unremarkable except as noted in HPI and below PMFSH Past Medical History Medical History Arthritis Cataract left Chronic anemia Chronic low back pain Colon cancer (12/2018) Status post partial colectomy and chemotherapy. Dyslipidemia Frequent falls Gastroesophageal reflux disease Glaucoma History of kidney stones History of stress test Negative stress test around 2004. Hypertension Idiopathic peripheral neuropathy Osteoarthritis Peptic ulcer (2002) Restless leg syndrome Stress incontinence Vitamin D deficiency Surgical History Surgical History History of appendectomy History of cholecystectomy (01/06/19) Laparoscopic cholecystectomy with IOC. History of lithotripsy History of orthopedic surgery Pinning left hip fracture. History of right hemicolectomy (01/06/19) Right hemicolectomy with anastomosis distal ileum to transverse colon. History of total hysterectomy Family History Family History Father Hypertension Family history of cardiovascular disease Mother Family history of cardiovascular disease Sibling Family history of cardiovascular disease Other Arthritis Social History Social History Social History: Surrogate decision maker: Daphne Kelly, daughter. Code status: Full code. Smoking status: Never smoker Second hand tobacco smoke exposure: No Alcohol intake: never Substance use: never Substance use type: does not use Additional living arrangements comments: The patient lives in her own home in [place]. 2 grown children. Additional occupation/education comments: Retired. Gender identity (if verbalized by the patient): Female Spiritual care concerns: No Exam Const: General: no acute distress and alert Orientation/consciousness: patient oriented x3 HENMT: Head: normal to i
[2020-10-24] MEDS: LIDOCAINE/PRILOCAINE CREAM 2.5-2.5% TUBE 1 EACH TOPICAL (15:07)
[2020-10-24 16:30] VITALS: BP 134/80; PULSE 80; RESP 16; O2SAT 97
[2020-10-24 18:23] VITALS: BP 143/64; PULSE 88; RESP 16; TEMP 36.9; O2SAT 94
== END 2020-10-24 19:42 ==
PROVIDERS: Emergency Provider Emergency Medicine; PCP Family Medicine
DX: M25.461 Effusion, right knee (principal); M19.90 Unspecified osteoarthritis, unspecified site; E78.5 Hyperlipidemia, unspecified; I10 Essential (primary) hypertension; G60.9 Hereditary and idiopathic neuropathy, unspecified; Z85.038 Personal history of other malignant neoplasm of large intestine; Z90.49 Acquired absence of other specified parts of digestive tract; Z92.21 Personal history of antineoplastic chemotherapy; Z86.2 Personal history of diseases of the blood and blood-forming organs and certain disorders involving the immune mechanism
CPT/HCPCS: 20610; 71045; 73562; 99284; C1751

== ENCOUNTER 2021-07-23 10:43 | Outpatient (CLI) | payer MEDICARE, SELFPAY ==
--- NOTE | ~2021-07-23 | XR_ITS ---
EXAM: XR abdomen/kub 1V HISTORY: INCONTINENCE, HX STONES REQUIRING LITHOTRIPSY 2 YRS AGO COMPARISON: 12/21/2018. FINDINGS: Clear lung bases. Cholecystectomy clips. Left femoral neck fixation. Normal bowel gas sean chely. No organomegaly. Pelvic phleboliths. Lumbar scoliosis and severe degenerative disc disease. IMPRESSION: No obstruction or ileus. No radiographic evidence of nephrolithiasis. Reviewed, dictated and finalized at location K.
== END 2021-07-23 10:44 | disposition home or self-care (01) ==
PROVIDERS: PCP Family Medicine; Visit Provider Urology
DX: Z87.442 Personal history of urinary calculi (principal)
CPT/HCPCS: 74018

== ENCOUNTER 2021-07-29 17:09 | Emergency (ER) | payer MEDICARE, SELFPAY ==
--- NOTE | ~2021-07-29 | XR_ITS ---
EXAM: XR wrist LT min 3V HISTORY: injury, FALL TODAU, SWELLING/ REDNESS TO LATERAL POSTERIOR . COMPARISON: None available. FINDINGS: Severely decreased mineralization. No fracture or dislocation. No lytic or blastic lesion. Osteoarthritic change at the trapeziometacarpal joint. Wrist joint chondrocalcinosis. Changes at the proximal interphalangeal joints could represent a component of inflammatory arthritis such as rheuma toid. No erosion or periosteal change. Soft tissues within normal limits. IMPRESSION: Extensively limited by severe osteopenia. Within that constraint, no acute osseous finding in the lef t wrist.. Reviewed, dictated and finalized at location K. IMPRESSION: Extensively limited by severe osteopenia. Within that constraint, no acute osse ous finding in the left wrist..
[2021-07-29 17:08] VITALS: BP 111/69; PULSE 97; RESP 12; TEMP 36.8; O2SAT 95
--- NOTE | 2021-07-29 17:42 | ED.UPPEXIN ---
HPI - Extremity Injury (Upper) General Chief Complaint: Extremity Injury, Upper Stated Complaint: L wrist pain/swelling, fall this AM Time Seen by Provider: 07/29/21 17:37 History of Present Illness HPI narrative: 85 y/o female presents to the ER today for pain and swelling in the left wrist. She had a ground level fall this morning around 9:30am. Her daughter got to her shortly after around 10am and helped her up. She did not want to come at that time, so she tried to lay down and rest. Her left wrist has continued to be painful through the day and she felt like she needed to get checked. She denies any hip pain. Her knees are hurting but this is chronic. She has been able to ambulate since the fall. She has a small skin tear and bruise to right forearm. Related Data Home Medications Medication Instructions Recorded Confirmed duloxetine 20 mg capsule,delayed 20 mg PO BID 01/17/19 06/17/21 release Calcium 600 + D(3) 1 cap PO DAILY 02/10/19 06/17/21 cholecalciferol (vitamin D3) 2,000 unit PO DAILY 02/10/19 06/17/21 [Vitamin D3] melatonin 3 mg PO HS 02/10/19 06/17/21 multivitamin 1 tablet PO DAILY 02/10/19 06/17/21 pregabalin 100 mg capsule 100 mg PO BID 10/25/19 06/17/21 omeprazole magnesium [Prilosec OTC] 20 mg PO DAILY 12/13/19 06/17/21 ropinirole 1 mg PO TID 09/13/20 06/17/21 cyanocobalamin (vitamin B-12) 500 mcg BYMOUTH DAILY 10/11/20 06/17/21 Allergies Allergy/AdvReac Type Severity Reaction Status Date / Time ibuprofen Allergy Severe BLEEDING Verified 06/17/21 11:04 ULCER pseudoephedrine AdvReac Mild N/V Verified 06/17/21 11:04 naproxen AdvReac Unknown ULCER Verified 06/17/21 11:04 Review of Systems Constitutional: Constitutional: Denies chills, Denies fatigue and Denies fever(s) Eyes: Eyes: Reports no additional eye complaints ENT: Reports system reviewed and no additional complaints, except as documented Cardiovascular: Cardiovascular: Denies chest pain Respiratory: Respiratory: Denies dyspnea Gastrointestinal: Gastrointestinal: Reports no additional gastrointestinal complaints Genitourinary: Genitourinary: Reports no additional female genitourinary complaints Musculoskeletal: Musculoskeletal: Reports as per HPI Integumentary/Breasts: Skin/Breast: Reports as per HPI Neurologic: Denies numbness Psychiatric: Psychiatric: Reports no additional psychiatric complaints Hematologic/Lymphatic: Hematologic/Lymphatic: Reports no additional hematologic/lymphatic complaints Allergic/Immunologic: Allergic/Immunologic: Reports no additional allergic/immunologic complaints ON LICENSE OF [facility] Past Medical History Medical History Arthritis Cataract left Chronic anemia Chronic low back pain Colon cancer (12/2018) Status post partial colectomy and chemotherapy. Dyslipidemia Frequent falls Gastroesophageal reflux disease Glaucoma History of kidney stones History of stress test Negative stress test around 2004. Hypertension Hypothyroid Idiopathic peripheral neuropathy Osteoarthritis Peptic ulcer (2002) Restless leg syndrome Stress incontinence Vitamin D deficiency Surgical History Surgical History History of ankle surgery (~09/2020) Lt ORIF Fibula shaft and malleolar fx History of appendectomy History of cholecystectomy (01/06/19) Laparoscopic cholecystectomy with IOC. History of lithotripsy History of orthopedic surgery Pinning left hip fracture. History of right hemicolectomy (01/06/19) Right hemicolectomy with anastomosis distal ileum to transverse colon. History of total hysterectomy Family History Family History Father Hypertension Family history of cardiovascular disease Mother Family history of cardiovascular disease Sibling Family history of cardiovascular disease Other Arthritis Social History Social
[2021-07-29 19:48] VITALS: BP 122/65; PULSE 83; RESP 18; O2SAT 95
== END 2021-07-29 19:42 | disposition home or self-care (01) ==
LOC: ANHED 19:20
PROVIDERS: Emergency Provider Nurse Practitioner Family; PCP Family Medicine
DX: S60.212A Contusion of left wrist, initial encounter (principal); S63.502A Unspecified sprain of left wrist, initial encounter; W18.30XA Fall on same level, unspecified, initial encounter
CPT/HCPCS: 73110; 99283

== ENCOUNTER 2022-08-13 10:34 | Outpatient (CLI) | payer MEDICARE, SELFPAY ==
[2022-08-13 19:03] LABS: Vitamin D 25 Hydroxy 55.2 ng/mL
[2022-08-13 19:10] LABS: Alanine Aminotransferase 30 U/L (6-35); Albumin Level 4.2 g/dL (3.5-5.1); Alkaline Phosphatase 148 U/L (38-126); Anion Gap 5 mmol/L (8-16); Aspartate Amino Transferase 41 U/L (14-36); Bilirubin,Total 0.6 mg/dL (0.2-1.3); Blood Urea Nitrogen 14 mg/dL (7-17); Carbon Dioxide 33 mmol/L (22-30); Chloride 102 mmol/L (98-107); Cholesterol 156 mg/dL (0-200); Estimated Glomerular Filt Rate > 60; Glucose 81 mg/dL (65-110); HDL Direct 49 mg/dL; Potassium 4.1 mmol/L (3.4-5.0); Sodium 140 mmol/L (137-145); Triglycerides 128 mg/dL (<150)
[2022-08-13 19:21] LABS: LDL Cholesterol Direct 74 mg/dL
[2022-08-13 19:28] LABS: Basophils Absolute Auto 0.1 K/mm3 (0.0-0.1); Basophils Percent Auto 0.9 % (0.2-1.2); Eosinophils Absolute Auto 0.5 K/mm3 (0-0.3); Eosinophils Percent Auto 8.5 % (0-4.4); Hemoglobin 13.7 g/dL (12.0-15.0); Immature Granulocyte Absolute 0.02 K/mm3 (0.00-0.031); Immature Granulocyte Percent A 0.3 % (0-0.5); Lymphocytes Absolute Auto 1.85 K/mm3 (0.9-3.2); Lymphocytes Percent Auto 31.6 % (18.3-44.2); Mean Corpuscular HGB Conc 30.4 g/dl (32-36); Mean Corpuscular Hemoglobin 29.6 pg (26-34); Mean Corpuscular Volume 97.2 fl (80-100); Mean Platelet Volume 11.8 fl (7.4-10.4); Monocytes Absolute Auto 0.9 K/mm3 (0.1-0.6); Monocytes Percent Auto 15.5 % (2.6-8.5); Neutrophils Absolute Auto 2.5 K/mm3 (1.3-6.7); Neutrophils Percent Auto 43.2 % (45.5-73.1); Platelet Count Result 218 k/mm3 (150-375); Red Blood Count 4.63 M/mm3 (4.2-5.4); White Blood Count 5.9 K/mm3 (4.5-10.0)
== END 2022-08-13 10:35 | disposition home or self-care (01) ==
LOC: ANHGOSHLAB 10:35
PROVIDERS: PCP Family Medicine; Visit Provider Nurse Practitioner Family
DX: E55.9 Vitamin D deficiency, unspecified (principal); I10 Essential (primary) hypertension; E03.9 Hypothyroidism, unspecified
CPT/HCPCS: 36415; 80053; 80061; 82306; 84443; 85025

== ENCOUNTER → 2023-04-02 14:05 | Outpatient (CLI) | payer MEDICARE, SELFPAY ==
--- NOTE | ~2023-04-02 | XR_ITS ---
XR chest 2V DATE: 04/02/2023 14:45 INDICATION: Cough for 1 month. History of colon cancer. TECHNIQUE: Portable AP chest on 04/02/2023 at 1422 hours. COMPARISON: 10/24/2020 chest 1 view FINDINGS: Right bonita cath catheter tip overlies the right atrium. Normal heart size. There is aortic calcification and unfolding. No hilar or mediastinal enlargement . There is mild infiltrate and/or atelectasis in the lower lung zones, greater on the left. IMPRESSION: Mild infiltrate and/or atelectasis at the lung bases, left greater than right Right bonita cath Reviewed, dictated and finalized at location B. R ELECTRICIAN
== END ==
PROVIDERS: PCP Nurse Practitioner Family; Visit Provider Nurse Practitioner Family
DX: R05.9 Cough, unspecified (principal); R91.8 Other nonspecific abnormal finding of lung field; Z95.828 Presence of other vascular implants and grafts
CPT/HCPCS: 71046

== ENCOUNTER 2023-09-27 14:53 | Outpatient (CLI) | payer MEDICARE, SELFPAY ==
--- NOTE | ~2023-09-27 | US_ITS ---
EXAMINATION: US venous doppler [facility] DATE: 09/27/2023 15:43 INDICATION: Localized swelling of the left lower limb TECHNIQUE: Grayscale ultrasound images without and with compression and Doppler ultrasound images of the left lower extremity veins were obtained. COMPARISON: None. FINDINGS: The visualized portions of left common femoral vein, profunda (deep) femoral vein, femoral vein, popl iteal vein, peroneal veins, posterior tibial veins, gastrocnemius vein and greater saphenous vein out flow are patent. There is soft tissue edema at the left calf and ankle. IMPRESSION: 1. No deep venous thrombosis in the left lower limb. Reviewed, dictated and finalized at location A.
== END 2023-09-27 14:54 | disposition home or self-care (01) ==
PROVIDERS: PCP Family Medicine; Visit Provider Physician Assistant Surgical
DX: R60.0 Localized edema (principal)
CPT/HCPCS: 93971

== ENCOUNTER 2024-09-27 10:48 | Outpatient (CLI) | payer MEDICARE, SELFPAY ==
--- OUTSIDE RECORDS SUMMARY | 2024-09-27 11:05 | XMS_ITS ---
Author Name Auto Generated, Auto Generated Organization [facility] ices Address [address] [place] [address] Phone [phone] Care Team Providers Care Associate Quality Engineer Name Role Phone Merrick Chay Arteaga Unavailable [phone] Matilde Matias Unavailable Functional Status No Results Mental Status No Results Allergies and Intolerances Name Onset Date Reaction Severity ibuprofen (Allergy) WedAug 31 18:23:00 ED2018 pseudoephedrine (Allergy) WedAug 31 18:23:00 ED T 2018 Medications Medication Directions Start Date End Date Calcium 600 mg D3 800 IU 1tab Oral Every 1 Day Sep 30 01:00:00 2018Oct 11::00 2018 atorvastatin 10 mg tablet 1tab (TABLET) Oral Every 1 Day WedSep 30::00 2018Oct 11:00:00 2018 Fish Oil 1,000 mg capsule 1Cao (CAPSULE) Oral Every 1 Day WedSep 30:00:00 2018Oct 11:00:00 2018 DULoxetine 20 mg capsule,delayed release 1 Cap (CAPSULE,DELAYED RELEASE (ENTERIC COATED Oral Every 1 Day WedSep 30:00:00 2018Oct 11:00:00 2018 iron 325 mg (65 mg iron) tablet 1tab (TABLET) Oral 2 Times Daily WedSep 30::00 2018Oct 11::00 2018 gabapentin 100 mg capsule 1Cap (CAPSULE) Oral 2 Times Daily WedSep 30:00:00 2018Oct 11 01:00:00 2018 traMADol 50 mg tablet 1cap (TABLET) Oral 2 Times Daily WedSep 30:00:00 2018Oct 11:00:00 2018 Colace 100 mg capsule 1cap (CAPSULE) Ora l PRN, 2 Times Daily WedSep 30 01:00:00 2018Oct 11 01:00:00 2018 traMADol 50 mg tablet 1tab (TABLET) Oral Every 6 Hours, PRN WedSep 30:00:00 2018Oct 11:00:00 2018 Tylenol 325 mg capsule 2tabs (CAPSULE) O ral Every 6 Hours, PRN WedSep 30:00:00 2018Oct 11:00:00 2018 HYDROcodone 5 mg-acetaminophen 325 mg tablet 1tab (TABLET) Oral Every 6 Hours, PRN WedSep 30:00:00 2018Oct 11 01:00:00 2018 melatonin 10 mg capsule 1cap (CAPSULE) O ral Hour Of Sleep WedSep 30:00:00 2018Oct 11 01:00:00 2018 psyllium husk (bulk) 100 % powder 17Gm (POWDER (GRAM)) Oral Every 1 Day WedSep 30:00:00 2018Oct 11 01:00:00 2018 rOPINIRole 0.25 mg tablet 1tab (TABLET) Oral Hour Of Sleep WedSep 30:00:00 2018Oct 11 01:00:00 2018 omeprazole 20 mg capsule,delayed release 2tabs (CAPSULE,DELAYED RELEASE (ENTERIC COATED Oral Every 1 Day WedSep 30:00:00 2018Oct 11 01:00:00 2018 omeprazole 20 mg capsule,delayed release 2 caps CAPSULE,DELAYED RELEASE (ENTERIC COATED) Oral 1 Time Daily GERD WedSep 27 07:00:00 2018Sep 29 01:00:00 2018 aspirin 81 mg chewable tablet 1 TABLET,CHEWABLE Oral Every 12 Hours for 21 Days WedSep 19 21:00:00 2018Sep 26 17:51:00 ED2018 Miralax 17 gram oral powder packet 17g POWDER IN PACKET (EA) Oral 1 Time Daily constipation WedSep 18 21:00:00 2018Sep 29 01:00:00 2018 Miralax 17 gram oral powder packet 17g POWDER IN PACKET (EA) Oral 2 Times Daily WedSep 12 19:00:00 ED2018Sep 18 20:31:00 EDT 2018 melatonin 10 mg tablet 10mg TABLET Oral 1 Time Daily Insomnia WedSep 06 17:00:00 2018Sep 29 01:00:00 ED2018 rOPINIRole 0.25 mg tablet 0.25mg TABLET Oral 1 Time Daily Restless leg snydrome WedSep 06 17:00:00 2018Sep 29 01:00:00 2018 iron 325 mg (65 mg iron) tablet 325mg TABLET Oral 2 Times Daily Supplement WedSep 02 16:00:00 2018Sep 29 01:00:00 2018 Colace 100 mg capsule 100mg CAPSULE Oral PRN 2 Times Daily Constipation WedSep 02 16:00:2018Sep 29 01:00:00 2018 traMADol 50 mg tablet 50mg TABLET Oral 1 Time Daily Pain WedSep 02 16:00:00 2018Sep 29 01:00:00 2018 traMADol 50 mg tablet 50mg TABLET Oral P RN Every 6 Hours Pain, MAKE SURE PRN IS SPACED 6 HOURS APART FROM QHS WedSep 02 16:00:00 2018Sep 29 01:00:00 2018 HYDROcodone 5 mg-acetaminophen 325 mg tablet 1 tab TABLET Oral PRN Every 6 Hours Maximum daily dose of acetaminophen 3 grams/24 hrs from all sourcesFor sever painpain WedSep 02 16:00:00 2018Sep 29 01:00:00 2018 acetaminophen 325 mg tablet 650 mg TABLET Oral PRN Every 6 Hours Maximum daily dose of acetaminophen 3 grams/24 hrs from all sourcesfor mild painpain WedSep 02 16:00:00 2018Sep 29 01:00:00 ED2018 TUBErsol 5 tub. unit/0.1 mL intradermal injection solution 0.1 ml VIAL (ML) Intradermal 1 Time Weekly for 2 Weeks (PPD) 1st injection upon admission. Read between 48 and 72 hours and give 2nd injection 1 week after the 1st if result is negative. If positive result, proceed with chest x-ray to rule out active disease. WedSep 01 07:00:00 ED2018Sep 15 06:59:00 ED2018 TUBErsol 5 tub. unit/0.1 mL intradermal injection solution Read Results VIAL (ML) Other 1 Time Weekly for 2 Weeks Read results between 48-72 hours after 1st and 2nd 1 week apart. If positive do chest x-ray to rule out active disease. WedSep 01 07:00:00 ED2018Sep 15 06:59:00 EDT 2018 Eliquis 2.5 mg tablet 2.5mg TABLET Oral 2 Times Daily for 40 Days DVT prophylaxis WedAug 31 17:00:00 ED2018Sep 07 15:54:00 EDT 2018 ciprofloxacin 250 mg tablet 250mg TABLET Oral Every 12 Hours for 5 Days UTI WedSep 01 07:00:00 ED2018Sep 06 06:59:00 EDT 2018 HYDROcodone 5 mg-acetaminophen 325 mg tablet 1 tab TABLET Oral PRN Every 6 Hours Pain 4-6 WedAug 31 18:00:00 ED2018Sep 02 16:43:00 ED2018 ascorbic acid (vitamin C) 500 mg tablet 1 tab TABLET Oral 1 Time Daily Supplement WedSep 01 10:00:00 2018Sep 02 16:10:00 ED2018 atorvastatin 10 mg tablet 10mg TABLET Or al 1 Time Daily Hyperlipidemia WedSep 01 07:00:00 2018Sep 29 01:00:00 ED2018 Calcium 600 + D(3) 600 mg (1,500 mg)-400 unit tablet 1 tab TABLET Oral 1 Time Daily Supplement WedSep 01 07:00:00 2018Sep 29 01:00:00 ED2018 Vitamin D3 2,000 unit capsule 1 cap CAPSULE Oral 1 Time Daily Supplement WedSep 01 07:00:00 2018Sep 29 01:00:00 ED2018 cyanocobalamin (vit B-12) 5,000 mcg disintegrating tablet 5,000mcg TABLET,DISINTEGRATING Oral 1 Time Daily Supplement WedSep 01 07:00:00 ED2018Sep 02 16:05:00 EDT 2018 DULoxetine 20 mg capsule,delayed release 1 cap CAPSULE,DELAYED RELEASE (ENTERIC COATED) Oral 1 Time Daily Depression/pain WedSep 01 07:00:00 ED2018Sep 29 01:00:00 ED2018 ferrous sulfate 324 mg (65 mg iron) tablet,delayed release 1 cap TABLET, DELAYED RELEASE (ENTERIC COATED) Oral 1 Time Daily Anemia WedSep 01 07:00:00 ED2018Sep 02 16:11:00 EDT 2018 Fish Oil 1,000 mg capsule 1 cap CAPSULE Oral 1 Time Daily Supplement WedSep 01 07:00:00 EDT 2018Sep 29 01:00:00 EDT 2018 folic acid 0.8 mg capsule 0.5 tab CAPSUL E Oral 1 Time Daily Supplement WedSep 01 07:00:00 EDT 2018Sep 02 16:08:00 EDT 2018 gabapentin 100 mg capsule 100mg CAPSULE Oral 2 Times Daily Leg pain WedAug 31 18:00:00 EDT 2018Sep 29 01:00:00 EDT 2018 Glucosamine 500 mg tablet 1 cap TABLET O ral 2 Times Daily Supplement WedAug 31 18:00:00 EDT 2018Sep 02 16:09:00 EDT 2018 multivitamin with minerals tablet 1 tab TABLET Oral 1 Time Daily Supplement WedSep 01 07:00:00 EDT 2018Sep 29 01:00:00 EDT 2018 omeprazole 20 mg capsule,delayed release 20mg CAPSULE,DELAYED RELEASE (ENTERIC COATED) Oral 1 Time Daily WedSep 01 07:00:00 EDT 2018 15 17:51:00 EDT 2018 traMADol 50 mg tablet 50mg TABLET Oral P RN Every 6 Hours Pain WedAug 31 18:00:00 EDT 2018Aug 31 19:19:00 EDT 2018 traMADol 50 mg tablet 50mg TABLET Oral E very 6 Hours Pain WedAug 31 19:00:00 EDT 2018Aug 31 19:54:00 EDT 2018 traMADol 50 mg tablet 50mg TABLET Oral E very 6 Hours Pain WedAug 31 21:00:00 EDT 2018Sep 02 16:34:00 EDT 2018 Problems Active Concerns * Fracture of unspecified part of neck of left femur, subsequent encounter for closed fracture with routine healing* Code: * Start Date: WedAug 31 00:00:00 EDT 2018 * End Date: * Text: * Iron deficiency anemia, unspecified* Code: * Start Date: WedAug 31 00:00:00 EDT 2018 * End Date: * Text: * Essential (primary) hypertension* Code: * Start Date: WedAug 31 00:00:00 EDT 2018 * End Date: * Text: * Hereditary and idiopathic neuropathy, unspecified* Code: * Start Date: WedAug 31 00:00:00 EDT 2018 * End Date: * Text: * Hyperlipidemia, unspecified* Code: * Start Date: WedAug 31 00:00:00 EDT 2018 * End Date: * Text: * Gastro-esophageal reflux disease without esophagitis* Code: * Start Date: WedAug 31 00:00:00 EDT 2018 * End Date: * Text: * Vitamin D deficiency, unspecified* Code: * Start Date: WedAug 31 00:00:00 EDT 2018 * End Date: * Text: * Major depressive disorder, single episode, unspecified* Code: * Start Date: WedAug 31 00:00:00 EDT 2018 * End Date: * Text: * 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
--- OUTSIDE RECORDS SUMMARY | 2024-09-27 11:05 | XMS_ITS ---
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
--- OUTSIDE RECORDS SUMMARY | 2024-09-27 11:05 | XMS_ITS | Clinical Summary ---
Author Organization [facility] Roxanne Walters Address [address] [place] [address] Care Team Providers Care Front Desk Team Member Name Role Phone Matilde Matias MD Primary Care Provider Allergies Active Allergy Reactions Criticality Noted Date Comments Ibuprofen Hives High 02/15/2019 Pseudoephedrine Hives High 02/15/2019 Medications atorvastatin (LIPITOR) 10 mg tablet atorvastatin 10 mg tablet 9 Active gabapentin (NEURONTIN) 100 mg capsule gabapentin 100 mg capsule 9 Active melatonin 10 mg Capsule 9 Active multivitamin,t e-hxmh-gr-min (THERA-M) 27-0.4 mg Tablet Take 1 Tablet by mouth daily. Active Cholecalcifero l, Vitamin D3, 2,000 unit Capsule Take by mouth. Activ e cyanocobalamin 1,000 mcg Tablet Take 5,000 mcg by mouth daily. 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 Apply to port site 30 minutes prior to access 30 Gram 1 9 Active rOPINIRole (REQUIP) 0.5 mg tablet 9 Active ferrous sulfate 325 mg (65 mg iron) tablet TAKE 1 TABLET BY MOUTH TWICE DAILY 3 9 Active DULoxetine (CYMBALTA) 20 mg Capsule, Delayed Release(E.C.) 9 Active calcium as carbonate (Calcium 600) 1,500 mg (600 mg elemental) Tablet 9 Active calcium carbonate/iwlliam min D3 (CALCIUM 600 + D,3, ORAL) 9 Active triamcinolone acetonide (Kenalog) 10 mg/mL Suspension Kenalog 10 mg/mL suspension for injection In office injection administered by the provider Active how-A6-cpr28-z geo-gfb-ykui-b or 600 mg calcium- 800 unit-50 mg Tablet 9 Active lidocaine PF 1% (XYLOCAINE MPF) Solution lidocaine (PF) 10 mg/mL (1 %) injection solution In office injection administered by the provider Active omeprazole (PriLOSEC) 20 mg Capsule, Delayed Release(E.C.) 9 Active acetaminophen (Tylenol) 325 mg Capsule 9 Active omeprazole (PriLOSEC) 20 mg Capsule, Delayed Release(E.C.) 9 Active tbf-K7-ovh14-z gul-mqw-utfd-b or 600 mg calcium- 800 unit-50 mg Tablet 9 Active diltiaZEM (CARDIZEM CD) 120 mg Controlled Delivery 24 hour capsule Take 120 mg by mouth daily. Active pregabalin (LYRICA) 75 mg Capsule TAKE 1 CAPSULE BY MOUTH TWICE DAILY FOR 10 DAYS 0 Active ferrous sulfate (Iron) 325 mg (65 mg iron) tablet every 24 hours. A ctive multivitamin with minerals-lycop anabella-lutein (Centrum Silver) 0.4-300-250 mg-mcg-mcg Tablet per tablet Centrum Silver Activ e Bc-F9-akl-zinc -ssy-uozi-oans n (Caltrate 600-D Plus Minerals) 600 mg calcium- 800 unit-40 mg Tablet, Chewable Caltrate 600-D Plus Minerals 600 mg calcium-800 unit-40 mg chew tablet Take by oral route. 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 Gender Identity Not on file Sexual Orientation Not on file Last Filed Vital Signs Vital Sign Reading Time Taken Comments Blood Pressure 125/70 12/28/2019 11:48 AM CDT Pulse 82 12/28/2019 11:48 AM CDT Temperature 36.5 C (97.7 F) 12/28/2019 11:48 AM CDT Respiratory Rate - - Oxygen Saturation 92% 12/28/2019 11:48 AM CDT Inhaled Oxygen Concentration - - Weight 92 kg (202 lb 14.4 oz) 12/28/2019 11:48 A M CDT Height 170.2 cm (5' 7) 12/28/2019 11:48 AM CDT Body Mass Index 31.78 12/28/2019 11:48 AM CDT Plan of Treatment Health Maintenance Due Date Last Done Comments DTAP/TDAP/TD VACCINES (1 - Tdap) 09/13/1954 PNEUMOCOCCAL VACCINE 50+ YEARS (1 of 1 - PCV) 09/13/18 86 ZOSTER VACCINE (1 of 2) 09/13/1985 OSTEOPOROSIS SCREENING 09/13/2000 RSV VACCINE (60+ or ) (1 - 1-dose 75+ series) 09/13/2010 INFLUENZA VACCINE (#1) 2024 Care Teams Front Desk Team Member Relationship Specialty Start Date End Date Matilde Matias MD [address] [place] [address] PCP - General Family Practice 01/30/19
--- OUTSIDE RECORDS SUMMARY | 2024-09-27 11:05 | XMS_ITS | Clinical Summary ---
Author Organization [facility] Address [address] [address] Phone Care Team Providers Care Audiology Technician Name Role Phone Matilde Matias MD Primary Care Provider Social History Tobacco Use Types Packs/Day Years Used Date Smoking Tobacco: Never Assessed Comments Unknown Sex and Gender Information Value Date Recorded Sex Assigned at Not on file Legal Sex Female 11:30 AM CDT Gender Identity Not on file Sexual Orientation Not on file Plan of Treatment Health Maintenance Due Date Last Done Comments Hepatitis C Virus (HCV) Screening 1935 Zoster Immunization (2 of 3) 07/09/2010 05/14/2010 Respiratory Syncytial Virus (RSV) Immunization (Adult) (1 - 1-dose 75+ series) 09/13/2010 SARS-COV-2 Immunization ( season) 2023 01/15/2021, 05/21/2020, 04/17/2020 Influenza Immunization (#1) 11/13/202412/13, 01/09/2019, 12/13/2017, Additional history exists Pneumococcal Immunization (50+ years) Completed 12/15/2017, 12/15/2016 Pneumococcal Immunization Combined Discontinued 12/15/2017, 12/15/2016 DTaP/Tdap/Td Immunization Discontinued 2018, 01/31/2019, 05/02/2007 TdaP Immunization Completed 02/10/2019, 01/31/2019 Hepatitis B Immunization Aged Out No longer eligible based on patient's age to complete this topic Human Papillomavirus (HPV) Immunization Aged Out No longer eligible based on patient's age to complete this topic Meningococcal Immunization (ACWY) Aged Out No longer eligible based on patient's age to complete this topic Rotavirus Immunization Aged Out No lo nger eligible based on patient's age to complete this topic Insurance MEDICARE [facility] Care Teams Audiology Technician Relationship Specialty Start Date End Date Matilde Matias MD PCP - General Family Medicine 07/01/18
--- OUTSIDE RECORDS SUMMARY | 2024-09-27 11:06 | XMS_ITS | Clinical Summary ---
Author Organization [facility] Address [address] [place] [id number] Care Team Providers Care Supervisor Sound Technician Name Role Phone Unavailable Primary Care Provider Unavailabl e Social History Tobacco Use Types Packs/Day Years Used Date Smoking Tobacco: Never Assessed Comments Unknown Sex and Gender Information Value Date Recorded Sex Assigned at Not on file Legal Sex Female 4:06 PM CDT Gender Identity Not on file Sexual Orientation Not on file Plan of Treatment Health Maintenance Due Date Last Done Comments DTaP, Tdap and Td Vaccines ( 1 - Tdap) 09[birth year]13/1954 Pneumococcal Vaccine: 50+ Ye ars (1 of 1 - PCV) 09/13/1985 Zoster Vaccines (1 of 2) 09/13/1985 RSV Immunization or 60+ Years (1 - 1-dose 75+ series) 09/13/2010 COVID-19 Vaccine (2023-2 5 season) 2023 Meningococcal B Vaccine Aged Out No l onger eligible based on patient's age to complete this topic Meningococcal Vaccine Aged Out No minh jacqueline eligible based on patient's age to complete this topic RSV Immunizations Under 20 Months Aged Out No longer eligible based on patient's age to complete this topic
[2024-09-27 18:41] LABS: Hematocrit 44.2 % (37.0-47.0); Hemoglobin 13.5 g/dL (12.0-15.0); Immature Granulocyte Percent A 0.6 % (0-0.5); Lymphocytes Absolute Auto 2.24 K/mm3 (0.9-3.2); Mean Corpuscular HGB Conc 30.5 g/dl (32-36); Mean Corpuscular Hemoglobin 29.7 pg (26-34); Mean Corpuscular Volume 97.4 fl (80-100); Nucleated Red Blood Cells Absolute Auto 0.000 K/mm3 (0.0-0.012); Nucleated Red Blood Cells Perc 0.0 % (0.0-0.2); Platelet Count Result 242 k/mm3 (150-375); Red Blood Count 4.54 M/mm3 (4.2-5.4); White Blood Count 6.6 K/mm3 (4.5-10.0)
[2024-09-27 18:52] LABS: Free T4 Free Thyroxine 1.70 ng/dL (0.78-2.19)
[2024-09-27 18:56] LABS: Alanine Aminotransferase 12 U/L (6-35); Albumin Level 3.9 g/dL (3.5-5.1); Alkaline Phosphatase 94 U/L (38-126); Anion Gap 6 mmol/L (4-12); Aspartate Amino Transferase 62 U/L (14-36); Bilirubin,Total 0.3 mg/dL (0.2-1.3); Blood Urea Nitrogen 16 mg/dL (7-17); Calcium 9.4 mg/dL (8.4-10.2); Carbon Dioxide 30 mmol/L (22-30); Chloride 104 mmol/L (98-107); Cholesterol 147 mg/dL (0-200); Estimated Glomerular Filt Rate > 60; Glucose 87 mg/dL (65-110); HDL Direct 40 mg/dL; Potassium 3.9 mmol/L (3.4-5.0); Sodium 140 mmol/L (137-145); Total Protein 6.7 g/dL (6.3-8.2); Triglycerides 116 mg/dL (<150)
[2024-09-27 19:34] LABS: Thyroid Stimulating Hormone 1.920 uIU/mL (0.465-4.680)
== END 2024-09-27 10:49 | disposition home or self-care (01) ==
LOC: ANHGOSHLAB 10:49
PROVIDERS: PCP Family Medicine; Visit Provider Nurse Practitioner Family
DX: I10 Essential (primary) hypertension (principal); E03.9 Hypothyroidism, unspecified; E55.9 Vitamin D deficiency, unspecified; E78.5 Hyperlipidemia, unspecified
CPT/HCPCS: 36415; 80053; 80061; 82306; 84439; 84443; 85025

== ENCOUNTER 2024-11-22 11:19 | Outpatient (CLI) | payer MEDICARE, SELFPAY ==
--- OUTSIDE RECORDS SUMMARY | 2024-11-22 12:22 | XMS_ITS | Clinical Summary ---
Author Organization [facility] Roxanne Meléndezarmidajasmin Address [address] [place] [address] Care Team Providers Care Solar Engineer Name Role Phone Matilde Matias MD Primary Care Provider Allergies Active Allergy Reactions Criticality Noted Date Comments Ibuprofen Hives High 02/15/2019 Pseudoephedrine Hives High 02/15/2019 Medications atorvastatin (LIPITOR) 10 mg tablet atorvastatin 10 mg tablet 9 Active gabapentin (NEURONTIN) 100 mg capsule gabapentin 100 mg capsule 9 Active melatonin 10 mg Capsule 9 Active multivitamin,t y-gijb-rk-min (THERA-M) 27-0.4 mg Tablet Take 1 Tablet [...] (600 mg elemental) Tablet 9 Active calcium carbonate/william min D3 (CALCIUM 600 + D,3, ORAL) 9 Active triamcinolone acetonide (Kenalog) 10 mg/mL Suspension Kenalog 10 mg/mL suspension for injection In office injection administered by the provider Active rea-X9-klw73-z qgi-pgv-erti-b or 600 mg calcium- 800 unit-50 mg Tablet 9 Active lidocaine PF 1% (XYLOCAINE MPF) Solution lidocaine (PF) 10 mg/mL (1 %) injection solution In office injection administered by the provider Active omeprazole (PriLOSEC) 20 mg Capsule, Delayed Release(E.C.) 9 Active acetaminophen (Tylenol) 325 mg Capsule 9 Active omeprazole (PriLOSEC) 20 mg Capsule, Delayed Release(E.C.) 9 Active qct-D7-lnr82-z qdi-gng-wfbq-b or 600 mg calcium- 800 unit-50 mg [...] Tablet per tablet Centrum Silver Activ e Qy-I7-ulr-zinc -hkr-xajd-onza n (Caltrate 600-D Plus Minerals) 600 mg [...] on file 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
--- OUTSIDE RECORDS SUMMARY | 2024-11-22 12:22 | XMS_ITS | Clinical Summary ---
Author Organization [facility] Address [address] [address] Phone Care Team Providers Care Staff Mechanical Engineer Name Role Phone Matilde Matias MD [...] age to complete this topic Insurance MEDICARE [facility] Care Teams Staff Mechanical Engineer Relationship Specialty Start Date End Date Matilde Matias MD PCP - General Family Medicine 07/01/18
[2024-11-22 12:59] LABS: Alanine Aminotransferase 18 U/L (6-35); Albumin Level 3.8 g/dL (3.5-5.1); Alkaline Phosphatase 114 U/L (38-126); Anion Gap 6 mmol/L (4-12); Aspartate Amino Transferase 39 U/L (14-36); Bilirubin,Total 0.4 mg/dL (0.2-1.3); Blood Urea Nitrogen 14 mg/dL (7-17); Calcium 9.0 mg/dL (8.4-10.2); Carbon Dioxide 31 mmol/L (22-30); Chloride 103 mmol/L (98-107); Estimated Glomerular Filt Rate > 60; Glucose 86 mg/dL (65-110); Potassium 4.0 mmol/L (3.4-5.0); Sodium 140 mmol/L (137-145); Total Protein 6.5 g/dL (6.3-8.2)
== END 2024-11-22 11:20 | disposition home or self-care (01) ==
PROVIDERS: PCP Family Medicine; Visit Provider Nurse Practitioner Family
DX: R74.01 Elevation of levels of liver transaminase levels (principal)
CPT/HCPCS: 36415; 80053

== ENCOUNTER 2024-12-08 15:48 | Inpatient (IN) | payer MEDICARE, SELFPAY ==
[2024-12-08] VITALS (15 sets, daily range): BP systolic 105–143; BP diastolic 52–97; PULSE 92–118; RESP 14–22; TEMP 36.8; O2SAT 92–99; BMI 28.5; BMI 30.1
--- NOTE | ~2024-12-08 | CT_ITS ---
EXAMINATION: CTA chest PE protocol, 12/09/2024 17:35 CDT HISTORY: Hypoxia/tachycardia/elevated DIMER COMPARISON: No comparisons available. TECHNIQUE: CTA examination is obtained with contrast CTA examination technique is performed with arterial phase of contrast-enhancement. 3-D reconstruction with thin MIP axial and MPR coronal imaging is provided Isovue 300, 92cc injected IV. One or more of the following dose reduction techniques were used: automated exposure control, adjustment of the mA and/or kV according to patient size, use of iterative reconstruction technique. FINDINGS: No significant coronary calcification is present ([id number]) LUNGS: Contrast bolus adequate, there is no pulmonary embolism identified. No tracheomalacia. No bronchiectasis. Moderate emphysematous changes. Mild pulmonary fibrotic changes. Basilar atelectasis noted. Mild pulmonary venous congestion. Scattered calcified granulomas are noted. There are infiltrates noted in the right upper lobe and the right lower lobe with associated bronchial wall thickening with mucous plugging noted in the right lower lobe with a more confluent focus of abnormal density in the right lower lobe measuring 3.3 x 3 cm without significant air bronchograms. Atelectasis is noted in the right upper lobe anteriorly. Scattered micronodules the largest in the right middle lobe 6 mm. HEART AND PERICARDIUM: Mild cardiomegaly. Trace pericardial effusion. AORTA: Normal caliber aorta.. PULMONARY ARTERIES: No pulmonary embolism ADENOPATHY/MEDIASTINUM: None. LIMITED VIEWS OF THE ABDOMEN: Within normal limits. OSSEOUS STRUCTURES: No sclerotic or lytic lesions. Moderate degenerative changes noted in the thoracic spine. No acute fracture is demonstrated. OVERLYING SOFT TISSUES: Right Mediport noted. THYROID: The thyroid is unremarkable. IMPRESSION: Negative for pulmonary embolism. There is a probable bronchopneumonia within the right lung detailed above. There is mucous plugging noted in the right lower lobe, endobronchial lesion not excluded. Focus of abnormal densities evident in the right lower lobe which may represent atelectatic lung however underlying neoplasm is not excluded. Short-term follow-up after treatment is recommended to assess for improvement Reviewed, dictated and finalized at location P. IMPRESSION: Negative for pulmonary embolism. There is a probable bronchopneumonia within th e right lung detailed above. There is mucous plugging noted in the right lower lobe, endobronchial lesion not excluded. Focus of abnormal densities evident in the right lower lobe which may represent atelectatic lung however underlying n eoplasm is not excluded. Short-term follow-up after treatment is recommended to assess for improvement
--- NOTE | ~2024-12-08 | XR_ITS ---
EXAMINATION: XR chest 1V portable COMPARISON: No comparisons available. HISTORY: SOA FINDINGS: Small scattered airspace opacities. No pneumothorax. Heart is normal size. Mediastinal and hilar contours are within normal limits. Bony thorax no acute abnormality. Miscellaneous: Right Mediport terminates in the SVC. Impression: Early bilateral pneumonia Reviewed, dictated and finalized at location P. Impression: Early bilateral pneumonia
--- NOTE | 2024-12-08 16:54 | ED.GENADULT ---
HPI - General Adult General Chief complaint: Weakness Stated complaint: sob, weak Time Seen by Provider: 12/08/24 16:13 History of Present Illness HPI narrative: Patient is an 89-year-old female who presents ER with weakness. Worsening over last couple days. Associated with cough. No reports of fevers or chills. Patient has had poor appetite and has not been as active as she typically is. Has history of urinary incontinence which is unchanged. Patient is now requiring 3 L nasal cannula and she is not typically oxygen dependent. Related Data Home Medications ?Medication ?Instructions ?Recorded ?Confirmed ?Last Taken ?Type atorvastatin 10 mg tablet mg 12/08/24 Unknown History calcium 600 mg-D3 800 unit-mag11 1 tablet PO DAILY 12/08/24 12/08/24 Unknown History 50 ex-gdqh-xrkqan-albert-s.borat tablet (Caltrate 600-D Plus Minerals) cholecalciferol (vitamin D3) 50 2,000 unit PO DAILY 12/08/24 12/08/24 Unknown History mcg (2,000 unit) tablet (Vitamin D3) cyanocobalamin (vitamin B-12) 500 500 mcg PO DAILY 12/08/24 12/08/24 Unknown History mcg tablet (Vitamin B-12) diltiazem HCl 300 mg mg PO 12/08/24 Unknown History capsule,extended release 24 hr (Cartia XT) duloxetine 20 mg capsule,delayed mg PO 12/08/24 Unknown History release ferrous sulfate 325 mg (65 mg mg 12/08/24 Unknown History iron) tablet levothyroxine 75 mcg tablet mcg 12/08/24 Unknown History omeprazole magnesium 20 mg 20 mg PO DAILY 12/08/24 12/08/24 Unknown History tablet,delayed release (Prilosec OTC) oxybutynin chloride 5 mg tablet mg 12/08/24 Unknown History pregabalin 100 mg capsule mg 12/08/24 Unknown History ropinirole 0.5 mg tablet mg 12/08/24 Unknown History Allergies Allergy/AdvReac Type Severity Reaction Status Date / Time No Known Allergies Allergy Verified 12/08/24 16:06 Review of Systems Review of Systems: All systems reviewed & are unremarkable except as noted in HPI and below Constitutional: Constitutional: Reports no additional constitutional complaints ENT: Reports system reviewed and no additional complaints, except as documented Cardiovascular: Cardiovascular: Reports no additional cardiovascular complaints Respiratory: Respiratory: Reports no additional respiratory complaints Musculoskeletal: Musculoskeletal: Reports no additional musculoskeletal complaints PMFSH Past Medical History Medical History (Updated 12/08/24 @ 21:57 by Camilo Sorto MD) Hypothyroidism Hyperlipidemia Exam Narrative: GENERAL: Chronically ill-appearing, well-nourished, and in no acute distress. HEAD: Normocephalic, atraumatic. ENT: Mucous membranes moist. CHEST: Clear to auscultation. No respiratory distress. HEART: Regular rate and rhythm. Normal peripheral pulses. ABDOMEN: Soft, nontender, nondistended. EXTREMITIES: Normal range of motion. No edema. SKIN: Warm, dry, no rash. NEURO: Alert and oriented x3. PSYCH: Normal mood and affect. Course Course Emergency Course: Patient resting comfortably. Informed of results. IV antibiotics for what is felt to be pneumonia. Her white blood cell count slightly elevated 11.3, she has early pneumonia on her chest x-ray, viral testing negative. Mild elevation in BNP. Vital Signs Vital signs: Vital Signs Temperature 98.2 F 12/08/24 15:49 Pulse Rate 105 H 12/08/24 15:49 Respiratory Rate 17 12/08/24 15:49 Blood Pressure 122/64 12/08/24 15:49 Pulse Oximetry 96 12/08/24 15:49 Oxygen Delivery Nasal Cannula 12/08/24 15:49 Oxygen Flow Rate 3 12/08/24 15:49 Temperature 98.2 F 12/08/24 15:49 Pulse Rate 118 H 12/08/24 20:48 Respiratory Rate 17 12/08/24 20:48 Blood Pressure 119/52 L 12/08/24 20:48 Pulse Oximetry 92 12/08/24 21:56 Oxygen Delivery High Flow Nasal Cannula 12/08/24 21:56 Oxygen Flow Rate 4 12/08/24 21:56 Medical Decision Making Vital Signs Vital Signs: Vital Signs Temperature 98.2 F 12/08/24 15:49 Pulse Rate 105 H 12/08/24 15:49 Respiratory Rate 17 12/08/24 15:49 Blood Pressure 122/64 12/08/24 15:49 Pulse Oximetry 96 12/08/24 15:49 Oxygen Delivery Nasal Cannula 12/08/24 15:49 Oxygen Flow Rate 3 12/08/24 15:49 Temperature 98.2 F 12/08/24 15:49 Pulse Rate 118 H 12/08/24 20:48 Respiratory Rate 17 12/08/24 20:48 Blood Pressure 119/52 L 12/08/24 20:48 Pulse Oximetry 92 12/08/24 21:56 Oxygen Delivery High Flow Nasal Cannula 12/08/24 21:56 Oxygen Flow Rate 4 12/08/24 21:56 Lab Data 12/08/24 17:30 12/08/24 17:30 Labs: Lab Results 12/08/24 12/08/24 Range/Units 17:29 17:30 WBC 11.3 H (4.5-10.0) K/mm3 RBC 5.06 (4.2-5.4) M/mm3 Hgb 14.9 (12.0-15.0) g/dL Hct 47.0 (37.0-47.0) % MCV 92.9 (80-100) fl MCH 29.4 (26-34) pg MCHC 31.7 L (32-36) g/dl RDW 13.6 (11.5-14.5) % Plt Count 204 (150-375) k/mm3 MPV 11.1 H (7.4-10.4) fl Immature Gran % (Auto) 0.4 (0-0.5) % Neut % (Auto) 67.4 (45.5-73.1) % Lymph % (Auto) 13.9 L (18.3-44.2) % Freestone % (Auto) 16.0 H (2.6-8.5) % Eos % (Auto) 1.8 (0-4.4) % Baso % (Auto) 0.5 (0.2-1.2) % Lymph # (Auto) 1.58 (0.9-3.2) K/mm3 Freestone # (Auto) 1.8 H (0.1-0.6) K/mm3 Eos # (Auto) 0.2 (0-0.3) K/mm3 Baso # (Auto) 0.1 (0.0-0.1) K/mm3 Abs Immat Gran (auto) 0.04 H (0.00-0.031) K/mm3 Absolute Neuts (auto) 7.7 H (1.3-6.7) K/mm3 Absolute Nucleated RBC 0.000 (0.0-0.012) K/mm3 Nucleated RBC % 0.0 (0.0-0.2) % PT 14.1 (11.1-14.7) Seconds INR 1.1 APTT 28.1 (22.3-36.8) Seconds Sodium 137 (137-145) mmol/L Potassium 3.7 (3.4-5.0) mmol/L Chloride 100 (98-107) mmol/L Carbon Dioxide 28 (22-30) mmol/L Anion Gap 9 (4-12) mmol/L BUN 17 (7-17) mg/dL Creatinine 0.63 L (0.7-1.0) mg/dL Estim Creat Clear Calc 61 ml/min Estimated GFR > 60 (59 - ) Glucose 99 (65-110) mg/dL Lactic Acid 1.9 (0.7-2.0) mmol/L Calcium 9.6 (8.4-10.2) mg/dL Total Bilirubin 1.1 (0.2-1.3) mg/dL AST 66 H (14-36) U/L ALT 65 H (6-35) U/L Alkaline Phosphatase 148 H (38-126) U/L NT-Pro-B Natriuret Pep 1100 H (19.9-100) pg/mL Total Protein 7.4 (6.3-8.2) g/dL Albumin 4.1 (3.5-5.1) g/dL Influenza A (RT-PCR) Negative (Negative) Influenza B (RT-PCR) Negative (Negative) RSV (RT-PCR) Negative (Negative) SARS-CoV-2 RNA (RT-PCR) Negative (Negative) Imaging Data Radiologist's impression: ITS Impressions Chest X-Ray 12/08/24 17:08 Impression: Early bilateral pneumonia Critical Care Time Critical Care Time Critical Care Time: Yes Total Critical Care Time: 35 Discharge Plan Discharge Clinical Impression: Pneumonia, Hypoxia Patient Disposition: Still a Patient Condition: Stable
[2024-12-08 17:42] LABS: Hematocrit 47.0 % (37.0-47.0); Hemoglobin 14.9 g/dL (12.0-15.0); Immature Granulocyte Percent A 0.4 % (0-0.5); Lymphocytes Absolute Auto 1.58 K/mm3 (0.9-3.2); Mean Corpuscular HGB Conc 31.7 g/dl (32-36); Mean Corpuscular Hemoglobin 29.4 pg (26-34); Mean Corpuscular Volume 92.9 fl (80-100); Nucleated Red Blood Cells Absolute Auto 0.000 K/mm3 (0.0-0.012); Nucleated Red Blood Cells Perc 0.0 % (0.0-0.2); Platelet Count Result 204 k/mm3 (150-375); Red Blood Count 5.06 M/mm3 (4.2-5.4); White Blood Count 11.3 K/mm3 (4.5-10.0)
[2024-12-08 17:54] LABS: INR 1.1; Prothrombin Time 14.1 Seconds (11.1-14.7)
[2024-12-08 17:55] LABS: Alanine Aminotransferase 65 U/L (6-35); Albumin Level 4.1 g/dL (3.5-5.1); Alkaline Phosphatase 148 U/L (38-126); Anion Gap 9 mmol/L (4-12); Aspartate Amino Transferase 66 U/L (14-36); Bilirubin,Total 1.1 mg/dL (0.2-1.3); Blood Urea Nitrogen 17 mg/dL (7-17); Calcium 9.6 mg/dL (8.4-10.2); Carbon Dioxide 28 mmol/L (22-30); Chloride 100 mmol/L (98-107); Estimated CRCL calculation 61 ml/min; Estimated Glomerular Filt Rate > 60; Glucose 99 mg/dL (65-110); Potassium 3.7 mmol/L (3.4-5.0); Sodium 137 mmol/L (137-145); Total Protein 7.4 g/dL (6.3-8.2)
[2024-12-08 17:55] LABS: Partial Thromboplastin Time 28.1 Seconds (22.3-36.8)
[2024-12-08 18:02] LABS: NT Pro B Type Natriuretic Pept 1100 pg/mL (19.9-100)
[2024-12-08 18:19] LABS: Influenza A QL RT-PCR Negative (Negative); Influenza B QL RT-PCR Negative (Negative); RSV RNA, RT-PCR Negative (Negative); SARS-CoV-2 RNA PCR Negative (Negative)
[2024-12-08] MEDS: cefTRIAXone 1 GM in SODIUM CHLORIDE 0.9% IV 50 ML 100 ML IVPB (18:23)
[2024-12-08] MEDS: AZITHROMYCIN IV 500 MG in SODIUM CHLORIDE 0.9% IV 250 ML IVPB (19:36)
--- NOTE | 2024-12-08 19:37 | PC.NURSE ---
Report received from SOFÍA Sandoval. Assumed care of patient at this time.
[2024-12-08] MEDS: IPRATROPIUM 0.5 MG/ALBUTEROL SULFATE 2.5 MG AMPUL.NEB 3 ML INHALATION ×3 (20:02→20:06)
--- NOTE | 2024-12-08 23:32 | ADMGEN ---
This patient, Rosy Alexander, was admitted to Medical Room 259-01. Patient/family oriented to hospital policies and general routines including ID bracelet, bed and alarms, visiting hours, pain management, procedures, bathroom and other care routines, personal items, smoking policy, room service/diet, and visiting hours. Information on how to activate the Rapid Response Team has been discussed. Patient/Family are encouraged to report perceived risks to care and to ask questions if they do not understand what they are told or what they should do.
[2024-12-09] VITALS (8 sets, daily range): BP systolic 113–154; BP diastolic 52–79; PULSE 82–96; RESP 16–18; TEMP 36.5–36.9; O2SAT 90–97
--- NOTE | 2024-12-09 | ECHO_ITS ---
Patient Info Name: Rosy Alexander Age: 89 years : 1935 Gender: Female Ht: 68 in Wt: 187 lbs BSA: 2.04 m2 HR: 95 bpm BP: 154 / 79 mmHg Technical Quality: Fair Exam Date: 12/09/2024 9:15 AM Patient Status: I Admit Date: 12/08/2024 Exam Type: CA echo doppler color flow Complete two-dimensional, color flow and Doppler transthoracic echocardiogram is performed. Staff Referring Physician: Smiley Stevenson Nail Feeder: Cassandra Chappell Attending Provider: Jennifer Kirkpatrick DO Summary 1. Complete two-dimensional, color flow and Doppler transthoracic echocardiogram is performed. 2. Left ventricular systolic function is normal, estimated at 50-55. 3. There is mildly increased left ventricular wall thickness. 4. The left ventricular diastolic function is grade I diastolic dysfunction. 5. There is mild aortic valve calcification. 6. There is mild aortic valve stenosis. Left Ventricle Left ventricular chamber dimension is normal. Left ventricular systolic function is normal, estimated at 50-55. There is mildly increased left ventricular wall thickness. Left ventricular septal wall motion is normal. The left ventricular diastolic function is grade I diastolic dysfunction. Right Ventricle Right ventricular chamber dimension is normal. Right ventricular systolic function is normal. Left Atria Left atrial chamber dimension is normal. Right Atria Right atrial chamber dimension is normal. Aortic Valve The aortic valve is trileaflet. There is no aortic valve sclerosis. There is mild aortic valve stenosis. There is no aortic valve regurgitation. There is mild aortic valve calcification. Pulmonic Valve The pulmonic valve is normal. There is no pulmonic valve stenosis. There is no pulmonic regurgitation. Mitral Valve The mitral valve has normal leaflets. There is no mitral valve stenosis. There is no mitral valve regurgitation. Tricuspid Valve The tricuspid valve leaflets are normal. There is no significant tricuspid valve stenosis. There is no tricuspid valve regurgitation. Pericardium/Pleural The pericardium appears normal. There is no pericardial effusion. Inferior Vena Cava Normal inferior vena cava with >50% collapse upon inspiration consistent with normal right atrial pressure, 5 mmHg. Aorta The aortic root size at the sinus of Valsalva is normal. The prox ascending aorta size is normal. Left Ventricular Outflow Tract Name Value Normal LVOT 2D LVOT Diameter 2.0 cm LVOT Doppler LVOT Peak Velocity 92 cm/s LVOT Peak Gradient 3 mmHg LVOT Mean Gradient 2 mmHg LVOT VTI 23 cm LVOT Stroke Volume 75 ml LVOT CO 7.4 l/min LVOT CI 3.7 l/min/m2 Pulmonic Valve Name Value Normal RVOT Doppler RVOT Peak Velocity 75 cm/s RVOT Peak Gradient 2 mmHg PV Doppler PV Peak Velocity 70 cm/s PV Peak Gradient 2 mmHg Mitral Valve Name Value Normal MV Diastolic Function MV E Peak Velocity 56 cm/s MV A Peak Velocity 106 cm/s MV E/A 0.5 MV Decel Time (PW) 248 ms MV Annular TDI MV E/e' (Septal) 14.0 MV E/e' (Lateral) 7.2 MV E/e' (Average) 10.6 Tricuspid Valve Name Value Normal Estimated PAP/RSVP RA Pressure 5 mmHg <=5 Aortic Valve Name Value Normal AV Doppler AV Peak Velocity 159 cm/s AV Peak Gradient 10 mmHg AV Area (Cont Eq Guy) 1.9 cm2 AV DI (Guy) 0.58 AV Regurgitation 2D LVOT Area 3.2 cm2 Ventricles Name Value Normal LV Dimensions 2D/MM IVS Diastolic Thickness (2D) 1.1 cm 0.6-1.0 LVID Diastole (2D) 4.3 cm 3.8-5.2 LVIW Diastolic Thickness (2D) 1.4 cm 0.6-0.9 LVID Systole (2D) 3.0 cm 2.2-3.5 LVOT Diameter 2.0 cm LV Mass (2D Cubed) 194.28 g 67.00-162.00 LV Mass Index (2D Cubed) 95 g/m2 43-95 Relative Wall Thickness (2D) 0.66 <=0.42 LV Fractional Shortening/Ejection Fraction 2D/MM LV Fractional Shortening (2D) 29 % 27-45 LV EF (2D Teichholz) 56 % LV Diastolic Volume (4C MOD) 94 ml LV EF (4C MOD) 62 % LV Diastolic Volume (2C MOD) 78 ml LV EF (2C MOD) 51 % LV Diastolic Volume (BP MOD) 90 ml 46-106 LV Diastolic Volume Index (BP MOD) 44 ml/m2 29-61 LV Systolic Volume (BP MOD) 40 ml 14-42 LV Systolic Volume Index (BP MOD) 20 ml/m2 8-24 LV EF (BP MOD) 55 % 54-74 LV Diastolic Length (4C) 7.2 cm LV Systolic Length (4C) 6.1 cm LV Stroke Volume (4C MOD) 58 ml Atria Name Value Normal LA Dimensions LA Volume (4C A-L) 66 ml LA Volume (BP A-L) 65 ml RA Dimensions RA Systolic Major Morris Length (4C) 4.9 cm 2.2-2.8 RA Area (4C) 12.3 cm2 <=18.0 Report Signatures
--- NOTE | 2024-12-09 08:21 | ECG_ITS ---
Test Date: 2024-12-09 08:51:34 Measurements Intervals Napoleon Rate: 91 P: 52 NE: 176 QRS: -20 QRSD: 90 T: -10 QT: 365 QTc: 450 Interpretive Statements SINUS RHYTHM WITH OCCASIONAL SUPRAVENTRICULAR PREMATURE COMPLEXES VOLTAGE CRITERIA FOR LVH Electronically Signed On 12-10-2024 20:39:21 CDT by Doroteo Yee D.O
[2024-12-09 09:27] LABS: Hematocrit 39.7 % (37.0-47.0); Hemoglobin 12.7 g/dL (12.0-15.0); Immature Granulocyte Percent A 0.3 % (0-0.5); Lymphocytes Absolute Auto 1.68 K/mm3 (0.9-3.2); Mean Corpuscular HGB Conc 32.0 g/dl (32-36); Mean Corpuscular Hemoglobin 29.5 pg (26-34); Mean Corpuscular Volume 92.3 fl (80-100); Nucleated Red Blood Cells Absolute Auto 0.000 K/mm3 (0.0-0.012); Nucleated Red Blood Cells Perc 0.0 % (0.0-0.2); Platelet Count Result 193 k/mm3 (150-375); Red Blood Count 4.30 M/mm3 (4.2-5.4); White Blood Count 8.9 K/mm3 (4.5-10.0)
[2024-12-09 09:54] LABS: Alanine Aminotransferase 43 U/L (6-35); Albumin Level 3.5 g/dL (3.5-5.1); Alkaline Phosphatase 120 U/L (38-126); Anion Gap 3 mmol/L (4-12); Aspartate Amino Transferase 39 U/L (14-36); Bilirubin,Total 0.8 mg/dL (0.2-1.3); Blood Urea Nitrogen 20 mg/dL (7-17); Calcium 8.9 mg/dL (8.4-10.2); Carbon Dioxide 30 mmol/L (22-30); Chloride 101 mmol/L (98-107); Estimated CRCL calculation 67 ml/min; Estimated Glomerular Filt Rate > 60; Glucose 114 mg/dL (65-110); Magnesium 2.0 mg/dL (1.6-2.3); Potassium 3.8 mmol/L (3.4-5.0); Sodium 134 mmol/L (137-145); Total Protein 6.4 g/dL (6.3-8.2)
[2024-12-09] MEDS: dilTIAZem HCL CD 300 MG CAP.24HR PO (09:58)
[2024-12-09] MEDS: LEVOTHYROXINE SODIUM 75 MCG TABLET PO (09:58)
[2024-12-09] MEDS: guaiFENesin 12 HR 600 MG TABCR PO ×2 (09:58→20:19)
[2024-12-09] MEDS: CYANOCOBALAMIN 500 MCG TABLET PO (09:58)
[2024-12-09] MEDS: PREGABALIN (*CRX) 50 MG CAPSULE 100 MG PO ×2 (10:01→20:19)
[2024-12-09] MEDS: CHOLECALCIFEROL (VITAMIN D3) 125 MCG (5,000 UNITS) TABLET PO (10:07)
[2024-12-09 10:33] LABS: Thyroid Stimulating Hormone 3.330 uIU/mL (0.465-4.680)
--- NOTE | 2024-12-09 15:07 | P.HP_ITS ---
H&P: HPI History of Present Illness Date/Time: 12/09/24 15:07 Chief Complaint: Weakness/Cough/SOB Narrative: Patient is an 89-year-old female who presented to the emergency department via EMS after family reported she has had generalized weakness for 2-3 days. It is reported that patient had been sitting for greater than 24 hours and did not appear to be herself with a productive cough. Patient states she just did not feel well and had no appetite with generalized weakness that continued to worsen. Past medical history includes HLD, colon cancer in remission with surgical intervention, hypothyroidism, neuropathy, GERD. Patient is using [id number] Robitussin with the family reported she is usually active was not performing her ADLs due to extreme weakness and fatigue. Per family when EMS arrived to Patient hypoxic in the 80s and required supplemental oxygen at 3 L to maintain 92%. In the ED: Patient found to have mild leukocytosis, chest x-ray suspicious for early bilateral pneumonia. Patient also with elevated BNP 1100 however no reported history heart failure. Patient was started IV Rocephin and azithromycin and admitted to the medical unit for treatment pneumonia. Review of Systems Review of Systems: All systems reviewed & are unremarkable except as noted in HPI and below PMFSH Past Medical History Medical History Restless leg syndrome Neuropathy Spasmodic bladder Anemia Hypothyroidism Hyperlipidemia Surgical History Surgical History H/O colectomy Family History Family History Sibling Heart disease Mother Heart attack Daughter Heart disease Pacemaker Social History Social History Smoking status: Never smoker Second hand tobacco smoke exposure: No Alcohol intake: never Substance use: never Substance use type: does not use Lack of Transportation: No Lack of Food: Never True Current Housing: I Have Housing Concerned About Future Housing: No Difficulty Paying Gas/Electric Bills: No Difficulty Paying for Meds: No Currently Unemployed: No Education: High School Diploma/GED Difficulty w/ Childcare or Family Care: No Occupation/Education: retired Gender identity (if verbalized by the patient): Female Sexual Orientation (if Verbalized by the Patient): Straight or Heterosexual Spiritual care concerns: Yes Agree to blood products: Yes Meds Home Medications and Allergies Home Medications ?Medication ?Instructions ?Recorded ?Confirmed ?Type atorvastatin 10 mg tablet 10 mg PO HS 12/08/24 5 History calcium 600 mg-D3 800 unit-mag11 1 tablet PO DAILY 12/08/24 History 50 mq-kfxh-wwoggp-albert-s.borat tablet (Caltrate 600-D Plus Minerals) cholecalciferol (vitamin D3) 50 2,000 unit PO DAILY 12/08/24 History mcg (2,000 unit) tablet (Vitamin D3) cyanocobalamin (vitamin B-12) 500 2,500 mcg PO DAILY 0 12/08/24 12/09/24 History mcg tablet (Vitamin B-12) diltiazem HCl 300 mg 300 mg PO DAILY 12/08/24 History capsule,extended release 24 hr (Cartia XT) duloxetine 20 mg capsule,delayed 20 mg PO BID 12/08/24 12/08/24 History release ferrous sulfate 325 mg (65 mg 325 mg PO HS 12/08/24 History iron) tablet levothyroxine 75 mcg tablet 75 mcg PO DAILY 12/08/24 0 12/08/24 History omeprazole magnesium 20 mg 20 mg PO DAILY 12/08/24 History tablet,delayed release (Prilosec OTC) oxybutynin chloride 5 mg tablet 5 mg PO BID 12/08/24 0 12/08/24 History pregabalin 100 mg capsule 100 mg PO BID 12/08/2412/08 History ropinirole 0.5 mg tablet 0.5 mg PO BID 12/08/2412/08 History cyanocobalamin (vitamin B-12) 5,000 mcg PO DAILY 12/0912/09/24 History 5,000 mcg capsule Allergies Allergy/AdvReac Type Severity Reaction Status Date / Time No Known Allergies Allergy Verified 12/08/24 16:06 Vital Signs Vital Signs - 24 hr 12/08/24 15:49 12/08/24 16:07 12/08/24 16:07 Temperature 98.2 F Pulse Rate 105 H 105 H Respiratory Rate 17 Blood Pressure 122/64 Pulse Oximetry 96 95 Oxygen Delivery Nasal Cannula Nasal Cannula Oxygen Flow Rate 3 3 12/08/24 16:08 12/08/24 17:37 12/08/24 18:23 Temperature Pulse Rate 100 100 Respiratory Rate 20 22 H Blood Pressure 128/97 H 118/57 L Pulse Oximetry 95 97 96 Oxygen Delivery Nasal Cannula Oxygen Flow Rate 3 12/08/24 20:00 12/08/24 20:08 12/08/24 20:13 Temperature Pulse Rate 97 96 99 Respiratory Rate 20 18 15 Blood Pressure Pulse Oximetry Oxygen Delivery Oxygen Flow Rate 12/08/24 20:13 12/08/24 20:15 12/08/24 20:16 Temperature Pulse Rate 92 96 101 H Respiratory Rate 14 16 15 Blood Pressure Pulse Oximetry Oxygen Delivery Oxygen Flow Rate 12/08/24 20:48 12/08/24 21:56 12/08/24 21:57 Temperature Pulse Rate 118 H 117 H Respiratory Rate 17 17 Blood Pressure 119/52 L 120/57 L Pulse Oximetry 94 92 92 Oxygen Delivery High Flow Nasal Cannula Oxygen Flow Rate 4 12/08/24 22:32 12/08/24 23:48 12/09/24 05:53 Temperature 98.2 F 98.0 F Pulse Rate 115 H 108 H 96 Respiratory Rate 22 H 16 16 Blood Pressure 105/62 143/57 H 154/79 H Pulse Oximetry 92 99 97 Oxygen Delivery Oxygen Flow Rate 12/09/24 10:00 12/09/24 13:34 12/09/24 13:38 Temperature Pulse Rate 92 95 Respiratory Rate 17 18 Blood Pressure Pulse Oximetry Oxygen Delivery Room Air Oxygen Flow Rate 12/09/24 13:42 Temperature 98.4 F Pulse Rate 82 Respiratory Rate 18 Blood Pressure 123/56 L Pulse Oximetry 90 Oxygen Delivery Oxygen Flow Rate Exam Const: General: comfortable and no acute distress Other: Pleasant elderly female fatigued during assessment HENMT: Mouth: Yes moist mucous membranes Eyes: General: appearance normal, both eyes and all related structures Pupils: Equal, round and reactive pupils present Neck: Neck: supple and no JVD Resp: Effort & Inspection: normal respiratory effort Auscultation: diminished lung sounds Cardio: Rate: regular rate Rhythm: regular rhythm GI: GI Palp: Yes Soft to palpation Auscultation: normal bowel sounds Skin: General skin exam: normal color and no rashes or lesions noted Wounds: no wounds Neuro: Speech: normal speech Motor exam (neuro): Motor abnormalites present Sensory Exam: normal sensation Other: Unable to assess gait PT/OT evaluation pending Psych: Mental Status: mental status grossly normal Affect: normal affect H&P: Results Labs Labs: Short CBC 12/08/24 12/09/24 Range/Units 17:30 09:23 WBC 11.3 H 8.9 (4.5-10.0) K/mm3 Hgb 14.9 12.7 (12.0-15.0) g/dL Hct 47.0 39.7 (37.0-47.0) % Plt Count 204 193 (150-375) k/mm3 BMP 12/08/24 12/09/24 17:30 09:23 Sodium 137 134 L Potassium 3.7 3.8 Chloride 100 101 Carbon Dioxide 28 30 BUN 17 20 H Creatinine 0.63 L 0.55 L Glucose 99 114 H Calcium 9.6 8.9 Liver Function 12/08/24 12/09/24 Range/Units 17:30 09:23 Total Bilirubin 1.1 0.8 (0.2-1.3) mg/dL AST 66 H 39 H (14-36) U/L ALT 65 H 43 H (6-35) U/L Alkaline Phosphatase 148 H 120 (38-126) U/L Albumin 4.1 3.5 (3.5-5.1) g/dL Assessment and Plan Assessment and plan (1) Pneumonia: Code(s): J18.9 - Pneumonia, unspecified organism Status: Acute Assessment and Plan: Patient with generalized weakness and productive cough CXR showing early bilateral pneumonia mild leukocytosis * Bronchodilators. * incentive spirometry while awake. * influenza/COVID/RSV negative * IV Rocephin and oral azithromycin * supplemental oxygen therapy to maintain oxygen 92% * Mucolytic b.i.d. (2) Acute respiratory failure with hypoxia: Code(s): J96.01 - Acute respiratory failure with hypoxia Status: Acute Assessment and Plan: Patient was initially requiring 3 L supplemental oxygen to maintain 92% but now has currently been weaned back to room air * D-dimer mildly elevated with some tachycardia CTA pending to rule out any PE * Will continue to treat underlying pneumonia * Elevated BNP echo did show grade 1 diastolic heart failure monitor for pulmonary edema (3) Diastolic congestive heart failure: Code(s): I50.30 - Unspecified diastolic (congestive) heart failure Status: Acute Assessment and Plan: Acute diastolic heart failure, BNP 1100 no previous history of heart failure echocardiogram ordered showing grade 1 diastolic heart failure with LVEF 50-55% * CXR with early pneumonia * CT pending * Patient on Cardizem unsure why * Will monitor for pulmonary congestion (4) Anemia: Code(s): D64.9 - Anemia, unspecified Status: Acute Assessment and Plan: Iron deficiency anemia * Continue patient's ferrous sulfate (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 - Other specified disorders of bladder Status: Acute Assessment and Plan: * Continue patient on oxybutynin (6) Neuropathy: Code(s): G62.9 - Polyneuropathy, unspecified Status: Acute Assessment and Plan: * Continue patient's gabapentin (7) Restless leg syndrome: Code(s): G25.81 - Restless legs syndrome Status: Acute Assessment and Plan: * Continue patient's requip (8) Goals of care, counseling/discussion: Code(s): Z71.89 - Other specified counseling Status: Acute Assessment and Plan: Had a detailed discussion with patient and family at bedside regarding patient's code status * Patient requesting to be DNR/DNI at allow for natural if her heart was to stop * P.o. a papers also have advance directive stating DNR/DNI Plan Code status: DNR/DNI DVT prophylaxis: Lovenox Stress ulcer prophylaxis: NA PT/OT notes: Evaluation pending Disposition: Patient admitted to the medical unit for acute respiratory failure with hypoxia secondary to pneumonia also performed a cardiac workup for possible new onset heart failure patient found have grade 1 diastolic heart failure. Will continue to treat underlying pneumonia CTA pending rule out PE. PT and OT ordered for evaluation to assist in any discharge planning needs. Patient currently lives by herself at home and uses a walker for ambulation. Quality VTE Prophylaxis VTE prophylaxis: pharmacologic ordered -Patient's previous records reviewed on admission -ER notes reviewed in detail on admission -discussed all findings and current treatment plan with patient/Family/POA -Consultations reviewed for recommendations -Patient's disposition for safe discharge discussed with community case manager -radiology imaging, EKG and test results I have personally reviewed and interpreted unless otherwise specified Dictation performed by [employer] direct speech recognition software, therefore vault worker variants and typographical errors may occur. Hospitalist MIPS Advance Care Plan I have confirmed that the patient's Advanced Care Plan is present, code status is documented, or surrogate decision maker is listed in patient medical record.: Yes Medication Reconciliation I have utilized all available resources to obtain, update and review the patients current medications (includes all prescriptions, OTC, herbals, cannabis, and nutritional supplements).: Yes The patient is not eligible for med reconciliation; the patient is in a emergent medical situation where delaying treatment would jeopardize the patients health.: No
[2024-12-09] MEDS: cefTRIAXone 1 GM in SODIUM CHLORIDE 0.9% IV 50 ML 100 ML IVPB (18:12)
[2024-12-09] MEDS: AZITHROMYCIN IV 500 MG in SODIUM CHLORIDE 0.9% IV 250 ML IVPB (18:59)
[2024-12-09] MEDS: FERROUS SULFATE 325 MG TABLET BY MOUTH (20:19)
[2024-12-09] MEDS: IPRATROPIUM 0.5 MG/ALBUTEROL SULFATE 2.5 MG AMPUL.NEB 3 ML INHALATION (20:30)
[2024-12-10] VITALS (9 sets, daily range): BP systolic 126–140; BP diastolic 50–69; PULSE 76–92; RESP 16–18; TEMP 36.6–36.8; O2SAT 93–96
[2024-12-10] MEDS: IPRATROPIUM 0.5 MG/ALBUTEROL SULFATE 2.5 MG AMPUL.NEB 3 ML INHALATION ×4 (02:15→15:03)
[2024-12-10 05:27] LABS: Hematocrit 37.2 % (37.0-47.0); Hemoglobin 11.8 g/dL (12.0-15.0); Mean Corpuscular HGB Conc 31.7 g/dl (32-36); Mean Corpuscular Hemoglobin 29.8 pg (26-34); Mean Corpuscular Volume 93.9 fl (80-100); Platelet Count Result 187 k/mm3 (150-375); Red Blood Count 3.96 M/mm3 (4.2-5.4); White Blood Count 7.4 K/mm3 (4.5-10.0)
[2024-12-10 05:51] LABS: Alanine Aminotransferase 30 U/L (6-35); Albumin Level 3.2 g/dL (3.5-5.1); Alkaline Phosphatase 121 U/L (38-126); Anion Gap 4 mmol/L (4-12); Aspartate Amino Transferase 41 U/L (14-36); Bilirubin,Total 0.6 mg/dL (0.2-1.3); Blood Urea Nitrogen 14 mg/dL (7-17); Calcium 8.8 mg/dL (8.4-10.2); Carbon Dioxide 30 mmol/L (22-30); Chloride 101 mmol/L (98-107); Estimated CRCL calculation 69 ml/min; Estimated Glomerular Filt Rate > 60; Glucose 98 mg/dL (65-110); Magnesium 2.2 mg/dL (1.6-2.3); Potassium 3.6 mmol/L (3.4-5.0); Sodium 135 mmol/L (137-145); Total Protein 6.0 g/dL (6.3-8.2)
[2024-12-10] MEDS: LEVOTHYROXINE SODIUM 75 MCG TABLET PO (06:00)
--- NOTE | 2024-12-10 09:01 | P.PNIM_ITS ---
Progress Note: A&P Assessment and Plan (1) Pneumonia: Code(s): J18.9 - Pneumonia, unspecified organism Status: Acute Assessment and Plan: Patient with generalized weakness and productive cough CXR showing early bilateral pneumonia mild leukocytosis * Bronchodilators. * incentive spirometry while awake. * influenza/COVID/RSV negative * IV Rocephin and oral azithromycin * supplemental oxygen therapy to maintain oxygen 92% * Mucolytic b.i.d. (2) Acute respiratory failure with hypoxia: Code(s): J96.01 - Acute respiratory failure with hypoxia Status: Acute Assessment and Plan: Patient was initially requiring 3 L supplemental oxygen to maintain 92% but now has currently been weaned back to room air * D-dimer mildly elevated with some tachycardia CTA no PE showing bronchopneumonia * Will continue to treat underlying pneumonia * Elevated BNP echo did show grade 1 diastolic heart failure monitor for pulmonary edema (3) Diastolic congestive heart failure: Code(s): I50.30 - Unspecified diastolic (congestive) heart failure Status: Acute Assessment and Plan: Acute diastolic heart failure, BNP 1100 no previous history of heart failure echocardiogram ordered showing grade 1 diastolic heart failure with LVEF 50-55% * CXR with early pneumonia * CT pending * Patient on Cardizem unsure why * Will monitor for pulmonary congestion (4) Anemia: Code(s): D64.9 - Anemia, unspecified Status: Acute Assessment and Plan: Iron deficiency anemia * Continue patient's ferrous sulfate (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 - Other specified disorders of bladder Status: Acute Assessment and Plan: * Continue patient on oxybutynin (6) Neuropathy: Code(s): G62.9 - Polyneuropathy, unspecified Status: Acute Assessment and Plan: * Continue patient's gabapentin (7) Restless leg syndrome: Code(s): G25.81 - Restless legs syndrome Status: Acute Assessment and Plan: * Continue patient's requip (8) Goals of care, counseling/discussion: Code(s): Z71.89 - Other specified counseling Status: Acute Assessment and Plan: Had a detailed discussion with patient and family at bedside regarding patient's code status * Patient requesting to be DNR/DNI at allow for natural if her heart was to stop * P.o. a papers also have advance directive stating DNR/DNI Plan Code status: DNR/DNI DVT prophylaxis: Lovenox Stress ulcer prophylaxis: NA PT/OT notes: Evaluation pending Disposition: Patient admitted to the medical unit for acute respiratory failure with hypoxia secondary to pneumonia also performed a cardiac workup for possible new onset heart failure patient found have grade 1 diastolic heart failure. Will continue to treat underlying pneumonia. PT and OT ordered for evaluation to assist in any discharge planning needs. Patient currently lives by herself at home and uses a walker for ambulation. Time Spent With Patient Time with patient: 15 - 25 minutes Subjective Date/time seen: 12/10/24 09:01 Interval history: Patient is an 89-year-old female admitted for acute respiratory failure secondary to bronchopneumonia worsening weakness 12/10/2024: Review of Systems Review of Systems: All systems reviewed & are unremarkable except as noted in HPI and below Exam Const: General: comfortable and no acute distress Other: Pleasant elderly female fatigued during assessment HENMT: Mouth: Yes moist mucous membranes Eyes: General: appearance normal, both eyes and all related structures Pupils: Equal, round and reactive pupils present Neck: Neck: supple and no JVD Resp: Effort & Inspection: normal respiratory effort Auscultation: diminished lung sounds Cardio: Rate: regular rate Rhythm: regular rhythm GI: Auscultation: normal bowel sounds Skin: General skin exam: normal color and no rashes or lesions noted Wounds: no wounds Neuro: Cranial nerves: Yes Equal, round and reactive pupils present Speech: normal speech Motor exam (neuro): Motor abnormalites present Sensory Exam: normal sensation Other: Unable to assess gait PT/OT evaluation pending Psych: Mental Status: mental status grossly normal Affect: normal affect Objective Data Vital Signs Vital Signs: Vital Signs - 24 hr 12/09/24 10:00 12/09/24 13:34 12/09/24 13:38 Temperature Pulse Rate 92 95 Respiratory Rate 17 18 Blood Pressure Pulse Oximetry Oxygen Delivery Room Air 12/09/24 13:42 12/09/24 20:00 12/09/24 20:30 Temperature 98.4 F Pulse Rate 82 94 96 Respiratory Rate 18 16 18 Blood Pressure 123/56 L Pulse Oximetry 90 91 Oxygen Delivery Room Air 12/09/24 20:40 12/09/24 22:14 12/10/24 02:10 Temperature 97.7 F Pulse Rate 94 94 92 Respiratory Rate 18 16 18 Blood Pressure 113/52 L Pulse Oximetry 91 Oxygen Delivery 12/10/24 02:20 12/10/24 06:00 Temperature 98 F Pulse Rate 90 82 Respiratory Rate 18 16 Blood Pressure 126/52 L Pulse Oximetry 95 Oxygen Delivery Intake/Output Intake/Output: Intake & Output 12/07/24 12/08/24 12/09/24 12/10/24 23:59 23:59 23:59 23:59 Intake Total 300 2750 350 Output Total 250 700 Balance 300 2500 -350 Meds/Results Medications: Active Medications Generic Name Dose Route Start Last Admin Trade Name Freq PRN Reason Stop Dose Admin Acetaminophen 650 mg 12/08/24 20:51 Acetaminophen 325 Mg Tablet PO Q4H PRN Mild Pain (1-3) or Fever Hydrocodone Bitart/Acetaminophen 1 tab 12/08/24 20:51 Hydrocodone/Acetaminophen (*Crx) 5-325 Mg Tablet PO Q4H PRN Pain Rated 4-6 Albuterol/Ipratropium 3 ml 12/09/24 14:00 12/10/24 03:05 Ipratropium 0.5 Mg/Albuterol Sulfate 2.5 Mg Ampul.Neb 3 Ml INHALATION 3 ml Q6HRT ZACHARY Administration Cyanocobalamin 5,000 mcg 12/10/24 09:00 Cyanocobalamin 1,000 Mcg Tablet PO DAILY ZACHARY Diltiazem HCl 300 mg 12/09/24 09:00 12/09/24 09:58 Diltiazem Hcl Cd 300 Mg Cap.24hr PO 300 mg DAILY ZACHARY Administration Duloxetine HCl 20 mg 12/09/24 09:00 12/09/24 18:12 Duloxetine Hcl 20 Mg Capsule.Dr PO 20 mg BID ZACHARY Administration Enoxaparin Sodium 40 mg 12/10/24 09:00 Enoxaparin 40 Mg/0.4 Ml Syringe SUB-Q DAILY [facility] Ferrous Sulfate 325 mg 12/09/24 21:00 12/09/24 20:19 Ferrous Sulfate 325 Mg Tablet BY MOUTH 325 mg HS ZACHARY Administration Guaifenesin 600 mg 12/09/24 09:00 12/09/24 20:19 Guaifenesin 12 Hr 600 Mg Tabcr PO 600 mg Q12HR ZACHARY Administration Ceftriaxone Sodium 1 gm/ 50 mls @ 100 mls/hr 12/09/24 18:00 12/09/24 18:42 Sodium Chloride IVPB Infused Q24H ZACHARY Infusion Azithromycin 500 mg/ Sodium 250 mls @ 250 mls/hr 12/09/24 19:00 12/09/24 19:59 Chloride IVPB 12/12/24 19:59 Infused Q24H ZACHARY Infusion Levothyroxine Sodium 75 mcg 12/09/24 09:00 12/10/24 06:00 Levothyroxine Sodium 75 Mcg Tablet PO 75 mcg DAILY@0630 ZACHARY Administration Oxybutynin Chloride 5 mg 12/09/24 09:00 12/09/24 18:12 Oxybutynin Chloride 5 Mg Tablet PO 5 mg BID ZACHARY Administration Perflutren Lipid Microsphere 0 ml 12/09/24 08:21 Perflutren Lipid Microspheres 1.5 Ml Vial Diluted To 10 Ml Total Volume IV PUSH 12/12/24 08:22 ONCE PRN adequate visualization Protocol Pregabalin 100 mg 12/09/24 09:00 12/09/24 20:19 Pregabalin (*Crx) 50 Mg Capsule PO 100 mg Q12HR ZACHAYR Administration Ropinirole HCl 0.5 mg 12/09/24 09:00 12/09/24 20:19 Ropinirole Hcl 0.5 Mg Tablet PO 0.5 mg Q12HR ZACHARY Administration Vitamin D 125 mcg 12/09/24 09:00 12/09/24 10:07 Cholecalciferol (Vitamin D3) 125 Mcg (5,000 Units) Tablet PO 125 mcg DAILY ZACHARY Administration Radiology Results: ITS Impressions Chest X-Ray 12/08/24 17:08 Impression: Early bilateral pneumonia Chest CTA 12/09/24 17:56 IMPRESSION: Negative for pulmonary embolism. There is a probable bronchopneumonia within the right lung detailed above. There is mucous plugging noted in the right lower lobe, endobronchial lesion not excluded. Focus of abnormal densities evident in the right lower lobe which may represent atelectatic lung however underlying neoplasm is not excluded. Short-term follow-up after treatment is recommended to assess for improvement Labs Labs: Laboratory Results - last 24 hr 12/09/24 12/10/24 09:23 04:52 WBC 8.9 7.4 RBC 4.30 3.96 L Hgb 12.7 11.8 L Hct 39.7 37.2 MCV 92.3 93.9 MCH 29.5 29.8 MCHC 32.0 31.7 L RDW 13.8 13.4 Plt Count 193 187 MPV 10.9 H 11.7 H Immature Gran % (Auto) 0.3 Neut % (Auto) 56.3 Lymph % (Auto) 18.9 [place] % (Auto) 20.8 H Eos % (Auto) 3.1 Baso % (Auto) 0.6 Lymph # (Auto) 1.68 [place] # (Auto) 1.9 H Eos # (Auto) 0.3 Baso # (Auto) 0.1 Abs Immat Gran (auto) 0.03 Absolute Neuts (auto) 5.0 Absolute Nucleated RBC 0.000 Nucleated RBC % 0.0 D-Dimer 0.92 H Sodium 134 L 135 L Potassium 3.8 3.6 Chloride 101 101 Carbon Dioxide 30 30 Anion Gap 3 L 4 BUN 20 H 14 D Creatinine 0.55 L 0.53 L Estim Creat Clear Calc 67 69 Estimated GFR > 60 > 60 Glucose 114 H 98 Calcium 8.9 8.8 Magnesium 2.0 2.2 Total Bilirubin 0.8 0.6 AST 39 H 41 H ALT 43 H 30 Alkaline Phosphatase 120 121 Total Protein 6.4 6.0 L Albumin 3.5 3.2 L TSH 3.330 Quality VTE Prophylaxis VTE prophylaxis: pharmacologic ordered -Patient's previous records reviewed on admission -ER notes reviewed in detail on admission -discussed all findings and current treatment plan with patient/Family/POA -Consultations reviewed for recommendations -Patient's disposition for safe discharge discussed with renal case manager -radiology imaging, EKG and test results I have personally reviewed and interpreted unless otherwise specified Dictation performed by [employer] direct speech recognition software, therefore liberal arts dean variants and typographical errors may occur. Hospitalist [facility] Advance Care Plan I have confirmed that the patient's Advanced Care Plan is present, code status is documented, or surrogate decision maker is listed in patient medical record.: Yes Medication Reconciliation I have utilized all available resources to obtain, update and review the patients current medications (includes all prescriptions, OTC, herbals, cannabis, and nutritional supplements).: Yes The patient is not eligible for med reconciliation; the patient is in a emergent medical situation where delaying treatment would jeopardize the patients health.: No
[2024-12-10] MEDS: CYANOCOBALAMIN 1,000 MCG TABLET 5000 MCG PO (10:12)
[2024-12-10] MEDS: dilTIAZem HCL CD 300 MG CAP.24HR PO (10:12)
[2024-12-10] MEDS: CHOLECALCIFEROL (VITAMIN D3) 125 MCG (5,000 UNITS) TABLET PO (10:12)
[2024-12-10] MEDS: ENOXAPARIN 40 MG/0.4 ML SYRINGE SUB-Q (10:13)
[2024-12-10] MEDS: PREGABALIN (*CRX) 50 MG CAPSULE 100 MG PO ×2 (10:13→20:55)
[2024-12-10] MEDS: guaiFENesin 12 HR 600 MG TABCR PO ×2 (10:13→20:55)
--- NOTE | 2024-12-10 13:45 | PCPTNOTE ---
attempted PT eval, just finishing OT eval and pt requests to rest at this time but is willing to participate later after she rests, will follow
[2024-12-10] MEDS: cefTRIAXone 1 GM in SODIUM CHLORIDE 0.9% IV 50 ML 100 ML IVPB (17:18)
[2024-12-10] MEDS: THERAPEUTIC MULTIVITAMINS/MINERALS TAB (*BKC) 1 TABLET PO (17:18)
[2024-12-10] MEDS: BENZONATATE 100 MG CAPSULE PO (18:04)
[2024-12-10] MEDS: AZITHROMYCIN IV 500 MG in SODIUM CHLORIDE 0.9% IV 250 ML IVPB (18:05)
[2024-12-10] MEDS: FERROUS SULFATE 325 MG TABLET BY MOUTH (20:55)
--- NOTE | 2024-12-10 21:59 | PCRCNOTE ---
Window of time for administration has passed. See next scheduled administration.
[2024-12-11] VITALS (10 sets, daily range): BP systolic 113–138; BP diastolic 42–62; PULSE 66–86; RESP 18–20; TEMP 36.5–36.9; O2SAT 93–98
--- NOTE | 2024-12-11 03:04 | PCRCNOTE ---
Window of time for administration has passed. See next scheduled administration.
[2024-12-11 05:22] LABS: Hematocrit 38.7 % (37.0-47.0); Hemoglobin 12.1 g/dL (12.0-15.0); Mean Corpuscular HGB Conc 31.3 g/dl (32-36); Mean Corpuscular Hemoglobin 29.5 pg (26-34); Mean Corpuscular Volume 94.4 fl (80-100); Platelet Count Result 214 k/mm3 (150-375); Red Blood Count 4.10 M/mm3 (4.2-5.4); White Blood Count 6.1 K/mm3 (4.5-10.0)
[2024-12-11 05:47] LABS: Alanine Aminotransferase 25 U/L (6-35); Albumin Level 3.3 g/dL (3.5-5.1); Alkaline Phosphatase 102 U/L (38-126); Anion Gap 4 mmol/L (4-12); Aspartate Amino Transferase 28 U/L (14-36); Bilirubin,Total 0.3 mg/dL (0.2-1.3); Blood Urea Nitrogen 11 mg/dL (7-17); Calcium 8.7 mg/dL (8.4-10.2); Carbon Dioxide 31 mmol/L (22-30); Chloride 103 mmol/L (98-107); Estimated CRCL calculation 80 ml/min; Estimated Glomerular Filt Rate > 60; Glucose 100 mg/dL (65-110); Magnesium 2.1 mg/dL (1.6-2.3); Potassium 3.8 mmol/L (3.4-5.0); Sodium 138 mmol/L (137-145); Total Protein 6.1 g/dL (6.3-8.2)
[2024-12-11] MEDS: LEVOTHYROXINE SODIUM 75 MCG TABLET PO (05:53)
[2024-12-11] MEDS: IPRATROPIUM 0.5 MG/ALBUTEROL SULFATE 2.5 MG AMPUL.NEB 3 ML INHALATION ×3 (07:53→20:29)
[2024-12-11] MEDS: guaiFENesin 12 HR 600 MG TABCR PO ×2 (08:56→20:52)
[2024-12-11] MEDS: BENZONATATE 100 MG CAPSULE PO ×3 (08:56→17:29)
[2024-12-11] MEDS: THERAPEUTIC MULTIVITAMINS/MINERALS TAB (*BKC) 1 TABLET PO (08:57)
[2024-12-11] MEDS: CHOLECALCIFEROL (VITAMIN D3) 125 MCG (5,000 UNITS) TABLET PO (08:57)
[2024-12-11] MEDS: PANTOPRAZOLE SOD SESQUIHYDRATE 20 MG TAB PO (08:57)
[2024-12-11] MEDS: CYANOCOBALAMIN 1,000 MCG TABLET 5000 MCG PO (08:57)
[2024-12-11] MEDS: PREGABALIN (*CRX) 50 MG CAPSULE 100 MG PO ×2 (08:58→20:52)
[2024-12-11] MEDS: dilTIAZem HCL CD 300 MG CAP.24HR PO (08:58)
[2024-12-11] MEDS: ENOXAPARIN 40 MG/0.4 ML SYRINGE SUB-Q (08:58)
--- NOTE | 2024-12-11 10:16 | P.PNIM_ITS ---
Progress Note: A&P Assessment and Plan (1) Pneumonia: Code(s): J18.9 - Pneumonia, unspecified organism Status: Acute Assessment and Plan: Patient with generalized weakness and productive cough CXR showing early bilateral pneumonia mild leukocytosis * Bronchodilators. * incentive spirometry while awake. * Add chest physiotherapy b.i.d. * influenza/COVID/RSV negative * IV Rocephin and oral azithromycin * supplemental oxygen therapy to maintain oxygen 92%, currently on room air * Mucolytic b.i.d. (2) Acute respiratory failure with hypoxia: Code(s): J96.01 - Acute respiratory failure with hypoxia Status: Acute Assessment and Plan: Patient was initially requiring 3 L supplemental oxygen to maintain 92% but now has currently been weaned back to room air * D-dimer mildly elevated with some tachycardia CTA no PE showing bronchopneumonia * Will continue to treat underlying pneumonia * Elevated BNP echo did show grade 1 diastolic heart failure monitor for pulmonary edema (3) Diastolic congestive heart failure: Code(s): I50.30 - Unspecified diastolic (congestive) heart failure Status: Acute Assessment and Plan: Acute diastolic heart failure, BNP 1100 no previous history of heart failure echocardiogram ordered showing grade 1 diastolic heart failure with LVEF 50-55% * CXR with early pneumonia * CT pending * Patient on Cardizem unsure why * Will monitor for pulmonary congestion (4) Anemia: Code(s): D64.9 - Anemia, unspecified Status: Acute Assessment and Plan: Iron deficiency anemia * Continue patient's ferrous sulfate (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 - Other specified disorders of bladder Status: Acute Assessment and Plan: * Continue patient on oxybutynin (6) Neuropathy: Code(s): G62.9 - Polyneuropathy, unspecified Status: Acute Assessment and Plan: * Continue patient's gabapentin (7) Restless leg syndrome: Code(s): G25.81 - Restless legs syndrome Status: Acute Assessment and Plan: * Continue patient's requip (8) Goals of care, counseling/discussion: Code(s): Z71.89 - Other specified counseling Status: Acute Assessment and Plan: Had a detailed discussion with patient and family at bedside regarding patient's code status * Patient requesting to be DNR/DNI at allow for natural if her heart was to stop * P.o. a papers also have advance directive stating DNR/DNI Plan Code status: DNR/DNI DVT prophylaxis: Lovenox Stress ulcer prophylaxis: NA PT/OT notes: Evaluation pending Disposition: Patient admitted to the medical unit for acute respiratory failure with hypoxia secondary to pneumonia also performed a cardiac workup for possible new onset heart failure patient found have grade 1 diastolic heart failure. Will continue to treat underlying pneumonia. PT and OT ordered for evaluation to assist in any discharge planning needs. Patient currently lives by herself at home and uses a walker for ambulation and is agreeable to home health at discharge. Time Spent With Patient Time with patient: 15 - 25 minutes Subjective Date/time seen: 12/11/24 10:16 Interval history: Patient is an 89-year-old female admitted for acute respiratory failure secondary to bronchopneumonia worsening weakness 12/10/2024: Patient evaluated sitting up in the chair in no acute distress. Patient complains of persistent cough and inability to clear secretions. Patient initially told care coordination that she did not want home health however upon further discussion patient states that she misunderstood the neonatal intensive care nurse is amenable to home health at discharge. Patient denies chest pain, shortness a breath, and abdominal pain. Review of Systems Review of Systems: All systems reviewed & are unremarkable except as noted in HPI and below Respiratory: Respiratory: Reports cough (productive) Exam Const: General: comfortable and no acute distress Other: Pleasant elderly female fatigued during assessment HENMT: Mouth: Yes moist mucous membranes Eyes: General: appearance normal, both eyes and all related structures Pupils: Equal, round and reactive pupils present Neck: Neck: supple and no JVD Resp: Effort & Inspection: normal respiratory effort Auscultation: rhonchi and diminished lung sounds Cardio: Rate: regular rate Rhythm: regular rhythm GI: Auscultation: normal bowel sounds Skin: General skin exam: normal color and no rashes or lesions noted Wounds: no wounds Neuro: Cranial nerves: Yes Equal, round and reactive pupils present Speech: normal speech Motor exam (neuro): Motor abnormalites present Sensory Exam: normal sensation Other: Unable to assess gait PT/OT evaluation pending Psych: Mental Status: mental status grossly normal Affect: normal affect Objective Data Vital Signs Vital Signs: Vital Signs - 24 hr 12/10/24 13:17 12/10/24 14:00 12/10/24 15:03 Temperature 98.1 F Pulse Rate 83 84 Respiratory Rate 18 18 Blood Pressure 138/69 Pulse Oximetry 93 Oxygen Delivery Room Air 12/10/24 15:11 12/10/24 20:00 12/10/24 20:41 Temperature 98.2 F Pulse Rate 80 76 Respiratory Rate 18 17 Blood Pressure 140/50 L Pulse Oximetry 96 Oxygen Delivery Room Air 12/11/24 04:35 12/11/24 07:53 12/11/24 07:56 Temperature 98.5 F Pulse Rate 66 83 Respiratory Rate 18 20 Blood Pressure 133/56 L Pulse Oximetry 95 93 Oxygen Delivery Room Air 12/11/24 08:01 12/11/24 08:54 12/11/24 09:12 Temperature Pulse Rate 86 79 Respiratory Rate 20 Blood Pressure 133/52 L Pulse Oximetry Oxygen Delivery Room Air Intake/Output Intake/Output: Intake & Output 12/08/24 12/09/24 12/10/24 12/11/24 23:59 23:59 23:59 23:59 Intake Total 300 2750 2860 830 Output Total 250 1500 800 Balance 300 2500 1360 30 Meds/Results Medications: Active Medications Generic Name Dose Route Start Last Admin Trade Name Freq PRN Reason Stop Dose Admin Acetaminophen 650 mg 12/08/24 20:51 Acetaminophen 325 Mg Tablet PO Q4H PRN Mild Pain (1-3) or Fever Hydrocodone Bitart/Acetaminophen 1 tab 12/08/24 20:51 Hydrocodone/Acetaminophen (*Crx) 5-325 Mg Tablet PO Q4H PRN Pain Rated 4-6 Albuterol/Ipratropium 3 ml 12/09/24 14:00 12/11/24 07:53 Ipratropium 0.5 Mg/Albuterol Sulfate 2.5 Mg Ampul.Neb 3 Ml INHALATION 3 ml Q6HRT ZACHARY Administration Benzonatate 100 mg 12/10/24 13:30 12/11/24 08:56 Benzonatate 100 Mg Capsule PO 100 mg TID ZACHARY Administration Cyanocobalamin 5,000 mcg 12/10/24 09:00 12/11/24 08:57 Cyanocobalamin 1,000 Mcg Tablet PO 5,000 mcg DAILY ZACHARY Administration Diltiazem HCl 300 mg 12/09/24 09:00 12/11/24 08:58 Diltiazem Hcl Cd 300 Mg Cap.24hr PO 300 mg DAILY ZACHARY Administration Duloxetine HCl 20 mg 12/09/24 09:00 12/11/24 08:56 Duloxetine Hcl 20 Mg Capsule.Dr PO 20 mg BID ZACHARY Administration Enoxaparin Sodium 40 mg 12/10/24 09:00 12/11/24 08:58 Enoxaparin 40 Mg/0.4 Ml Syringe SUB-Q 40 mg DAILY ZACHARY Administration Ferrous Sulfate 325 mg 12/09/24 21:00 12/10/24 20:55 Ferrous Sulfate 325 Mg Tablet BY MOUTH 325 mg HS ZACHARY Administration Guaifenesin 600 mg 12/09/24 09:00 12/11/24 08:56 Guaifenesin 12 Hr 600 Mg Tabcr PO 600 mg Q12HR ZACHARY Administration Ceftriaxone Sodium 1 gm/ 50 mls @ 100 mls/hr 12/09/24 18:00 12/10/24 17:48 Sodium Chloride IVPB Infused Q24H ZACHARY Infusion Azithromycin 500 mg/ Sodium 250 mls @ 250 mls/hr 12/09/24 19:00 12/10/24 18:05 Chloride IVPB 12/12/24 19:59 250 mls/hr Q24H ZACHARY Administration Levothyroxine Sodium 75 mcg 12/09/24 09:00 12/11/24 05:53 Levothyroxine Sodium 75 Mcg Tablet PO 75 mcg DAILY@0630 ZACHARY Administration Multivitamins/Calcium 1 tablet 12/10/24 13:30 12/11/24 08:57 Therapeutic Multivitamins/Minerals Tab (*Bkc) PO 1 tablet DAILY ZACHARY Administration Oxybutynin Chloride 5 mg 12/09/24 09:00 12/11/24 08:57 Oxybutynin Chloride 5 Mg Tablet PO 5 mg BID ZACHARY Administration Pantoprazole Sodium 20 mg 12/11/24 09:00 12/11/24 08:57 Pantoprazole Sod Sesquihydrate 20 Mg Tab PO 20 mg QAM ZACHARY Administration Perflutren Lipid Microsphere 0 ml 12/09/24 08:21 Perflutren Lipid Microspheres 1.5 Ml Vial Diluted To 10 Ml Total Volume IV PUSH 12/12/24 08:22 ONCE PRN adequate visualization Protocol Pregabalin 100 mg 12/09/24 09:00 12/11/24 08:58 Pregabalin (*Crx) 50 Mg Capsule PO 100 mg Q12HR ZACHARY Administration Ropinirole HCl 0.5 mg 12/09/24 09:00 12/11/24 08:58 Ropinirole Hcl 0.5 Mg Tablet PO 0.5 mg Q12HR ZACHARY Administration Vitamin D 125 mcg 12/09/24 09:00 12/11/24 08:57 Cholecalciferol (Vitamin D3) 125 Mcg (5,000 Units) Tablet PO 125 mcg DAILY ZACHARY Administration Radiology Results: ITS Impressions Chest X-Ray 12/08/24 17:08 Impression: Early bilateral pneumonia Chest CTA 12/09/24 17:56 IMPRESSION: Negative for pulmonary embolism. There is a probable bronchopneumonia within the right lung detailed above. There is mucous plugging noted in the right lower lobe, endobronchial lesion not excluded. Focus of abnormal densities evident in the right lower lobe which may represent atelectatic lung however underlying neoplasm is not excluded. Short-term follow-up after treatment is recommended to assess for improvement Labs Labs: Laboratory Results - last 24 hr 12/11/24 05:09 WBC 6.1 RBC 4.10 L Hgb 12.1 Hct 38.7 MCV 94.4 MCH 29.5 MCHC 31.3 L RDW 13.2 Plt Count 214 MPV 11.2 H Sodium 138 Potassium 3.8 Chloride 103 Carbon Dioxide 31 H Anion Gap 4 BUN 11 Creatinine 0.45 L Estim Creat Clear Calc 80 Estimated GFR > 60 Glucose 100 Calcium 8.7 Magnesium 2.1 Total Bilirubin 0.3 AST 28 ALT 25 Alkaline Phosphatase 102 Total Protein 6.1 L Albumin 3.3 L Quality VTE Prophylaxis VTE prophylaxis: pharmacologic ordered -Patient's previous records reviewed on admission -ER notes reviewed in detail on admission -discussed all findings and current treatment plan with patient/Family/POA -Consultations reviewed for recommendations -Patient's disposition for safe discharge discussed with case management coordinator -radiology imaging, EKG and test results I have personally reviewed and interpreted unless otherwise specified Dictation performed by [employer] direct speech recognition software, therefore [employer] over[employer] variants and typographical errors may occur. Hospitalist [facility] Advance Care Plan I have confirmed that the patient's Advanced Care Plan is present, code status is documented, or surrogate decision maker is listed in patient medical record.: Yes Medication Reconciliation I have utilized all available resources to obtain, update and review the patients current medications (includes all prescriptions, OTC, herbals, cannabis, and nutritional supplements).: Yes The patient is not eligible for med reconciliation; the patient is in a emergent medical situation where delaying treatment would jeopardize the patients health.: No
[2024-12-11] MEDS: cefTRIAXone 1 GM in SODIUM CHLORIDE 0.9% IV 50 ML 100 ML IVPB (17:30)
[2024-12-11] MEDS: AZITHROMYCIN IV 500 MG in SODIUM CHLORIDE 0.9% IV 250 ML IVPB (20:10)
[2024-12-11] MEDS: FERROUS SULFATE 325 MG TABLET BY MOUTH (20:52)
[2024-12-12] VITALS (10 sets, daily range): BP systolic 115–147; BP diastolic 47–54; PULSE 68–89; RESP 16–20; TEMP 36.5–36.9; O2SAT 94–97
[2024-12-12] MEDS: IPRATROPIUM 0.5 MG/ALBUTEROL SULFATE 2.5 MG AMPUL.NEB 3 ML INHALATION ×4 (02:19→20:45)
[2024-12-12 05:02] LABS: Hematocrit 36.8 % (37.0-47.0); Hemoglobin 11.5 g/dL (12.0-15.0); Mean Corpuscular HGB Conc 31.3 g/dl (32-36); Mean Corpuscular Hemoglobin 29.4 pg (26-34); Mean Corpuscular Volume 94.1 fl (80-100); Platelet Count Result 194 k/mm3 (150-375); Red Blood Count 3.91 M/mm3 (4.2-5.4); White Blood Count 7.3 K/mm3 (4.5-10.0)
[2024-12-12 05:28] LABS: Alanine Aminotransferase 20 U/L (6-35); Albumin Level 3.3 g/dL (3.5-5.1); Alkaline Phosphatase 92 U/L (38-126); Anion Gap 5 mmol/L (4-12); Aspartate Amino Transferase 27 U/L (14-36); Bilirubin,Total 0.3 mg/dL (0.2-1.3); Blood Urea Nitrogen 13 mg/dL (7-17); Calcium 8.9 mg/dL (8.4-10.2); Carbon Dioxide 26 mmol/L (22-30); Chloride 105 mmol/L (98-107); Estimated CRCL calculation 77 ml/min; Estimated Glomerular Filt Rate > 60; Glucose 100 mg/dL (65-110); Magnesium 2.4 mg/dL (1.6-2.3); Potassium 3.6 mmol/L (3.4-5.0); Sodium 136 mmol/L (137-145); Total Protein 6.0 g/dL (6.3-8.2)
[2024-12-12] MEDS: LEVOTHYROXINE SODIUM 75 MCG TABLET PO (05:44)
[2024-12-12] MEDS: CYANOCOBALAMIN 1,000 MCG TABLET 5000 MCG PO (08:35)
[2024-12-12] MEDS: THERAPEUTIC MULTIVITAMINS/MINERALS TAB (*BKC) 1 TABLET PO (08:35)
[2024-12-12] MEDS: BENZONATATE 100 MG CAPSULE PO ×3 (08:35→17:49)
[2024-12-12] MEDS: dilTIAZem HCL CD 300 MG CAP.24HR PO (08:35)
[2024-12-12] MEDS: PANTOPRAZOLE SOD SESQUIHYDRATE 20 MG TAB PO (08:36)
[2024-12-12] MEDS: guaiFENesin 12 HR 600 MG TABCR PO ×2 (08:36→21:15)
--- NOTE | 2024-12-12 08:36 | P.PNIM_ITS ---
Progress Note: A&P Assessment and Plan (1) Pneumonia: Code(s): J18.9 - Pneumonia, unspecified organism Status: Acute Assessment and Plan: Patient with generalized weakness and productive cough CXR showing early bilateral pneumonia mild leukocytosis * Bronchodilators. * incentive spirometry while awake. * Add chest physiotherapy b.i.d. * influenza/COVID/RSV negative * IV antibiotic therapy transitioned to oral Augmentin completed her oral azithromycin * supplemental oxygen therapy to maintain oxygen 92%, currently on room air * Mucolytic b.i.d. * PEP therapy (2) Diastolic congestive heart failure: Code(s): I50.30 - Unspecified diastolic (congestive) heart failure Status: Acute Assessment and Plan: Acute diastolic heart failure, BNP 1100 no previous history of heart failure echocardiogram ordered showing grade 1 diastolic heart failure with LVEF 50-55% * CXR with early pneumonia * CT pending * Patient on Cardizem unsure why * Will monitor for pulmonary congestion (3) Anemia: Code(s): D64.9 - Anemia, unspecified Status: Acute Assessment and Plan: Iron deficiency anemia * Continue patient's ferrous sulfate (4) Spasmodic bladder: Code(s): 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 - Other specified disorders of bladder Status: Acute Assessment and Plan: * Continue patient on oxybutynin (5) Neuropathy: Code(s): G62.9 - Polyneuropathy, unspecified Status: Acute Assessment and Plan: * Continue patient's gabapentin (6) Restless leg syndrome: Code(s): G25.81 - Restless legs syndrome Status: Acute Assessment and Plan: * Continue patient's requip (7) Goals of care, counseling/discussion: Code(s): Z71.89 - Other specified counseling Status: Acute Assessment and Plan: Had a detailed discussion with patient and family at bedside regarding patient's code status * Patient requesting to be DNR/DNI at allow for natural if her heart was to stop * P.o. a papers also have advance directive stating DNR/DNI (8) Acute respiratory failure with hypoxia: Code(s): J96.01 - Acute respiratory failure with hypoxia Status: Resolved Assessment and Plan: RESOLVED Patient was initially requiring 3 L supplemental oxygen to maintain 92% but now has currently been weaned back to room air * D-dimer mildly elevated with some tachycardia CTA no PE showing bronchopneumonia * Will continue to treat underlying pneumonia * Elevated BNP echo did show grade 1 diastolic heart failure monitor for pulmonary edema Plan Code status: DNR/DNI DVT prophylaxis: Lovenox Stress ulcer prophylaxis: NA PT/OT notes: Evaluation pending Disposition: Patient admitted to the medical unit for acute respiratory failure with hypoxia secondary to pneumonia also performed a cardiac workup for possible new onset heart failure patient found have grade 1 diastolic heart failure. Will continue to treat underlying pneumonia. PT and OT ordered for evaluation to assist in any discharge planning needs. Patient currently lives by herself at home and uses a walker for ambulation and is agreeable to home health at discharge. Recommend 1 more day of PPI therapy transition to oral antibiotic can likely discharge home tomorrow with home health. Time Spent With Patient Time with patient: 15 - 25 minutes Subjective Date/time seen: 12/12/24 08:36 Interval history: Patient is an 89-year-old female admitted for acute respiratory failure secondary to bronchopneumonia worsening weakness 12/12/2024: Patient seen up in chair feeling better today but still with moderate to severe cough but states secretions are loosening up. Patient's appetite is returning 8% for food today remains on room air reports weakness have improved. Review of Systems Review of Systems: All systems reviewed & are unremarkable except as noted in HPI and below Respiratory: Respiratory: Reports cough (productive) Exam Const: General: comfortable and no acute distress Other: Pleasant elderly female fatigued during assessment HENMT: Mouth: Yes moist mucous membranes Eyes: General: appearance normal, both eyes and all related structures Pupils: Equal, round and reactive pupils present Neck: Neck: supple and no JVD Resp: Effort & Inspection: normal respiratory effort Auscultation: rhonchi and diminished lung sounds Cardio: Rate: regular rate Rhythm: regular rhythm GI: Auscultation: normal bowel sounds Skin: General skin exam: normal color and no rashes or lesions noted Wounds: no wounds Neuro: Cranial nerves: Yes Equal, round and reactive pupils present Speech: normal speech Motor exam (neuro): Motor abnormalites present Sensory Exam: normal sensation Other: Unable to assess gait PT/OT evaluation pending Psych: Mental Status: mental status grossly normal Affect: normal affect Objective Data Vital Signs Vital Signs: Vital Signs - 24 hr 12/11/24 08:54 12/11/24 09:00 12/11/24 09:12 Temperature Pulse Rate 79 Respiratory Rate Blood Pressure 133/52 L Pulse Oximetry Oxygen Delivery Room Air Room Air Fraction of Inspired Oxygen 12/11/24 13:17 12/11/24 13:55 12/11/24 14:05 Temperature 97.7 F Pulse Rate 72 79 84 Respiratory Rate 18 20 20 Blood Pressure 113/42 L Pulse Oximetry 97 Oxygen Delivery Fraction of Inspired Oxygen 12/11/24 20:00 12/11/24 20:29 12/11/24 20:29 Temperature 98.2 F Pulse Rate 73 77 Respiratory Rate 18 18 Blood Pressure 138/62 Pulse Oximetry 98 97 Oxygen Delivery Room Air Room Air Fraction of Inspired Oxygen 21 12/11/24 20:29 12/11/24 20:45 12/12/24 02:19 Temperature Pulse Rate 77 78 72 Respiratory Rate 18 18 18 Blood Pressure Pulse Oximetry Oxygen Delivery Fraction of Inspired Oxygen 12/12/24 02:35 12/12/24 04:42 12/12/24 07:25 Temperature 97.7 F Pulse Rate 76 84 74 Respiratory Rate 18 17 16 Blood Pressure 137/54 L Pulse Oximetry 94 Oxygen Delivery Fraction of Inspired Oxygen Intake/Output Intake/Output: Intake & Output 12/09/24 12/10/24 12/11/24 12/12/24 23:59 23:59 23:59 23:59 Intake Total 2750 3110 1820 100 Output Total 250 1500 1100 600 Balance 2500 1610 720 -500 Meds/Results Medications: Active Medications Generic Name Dose Route Start Last Admin Trade Name Freq PRN Reason Stop Dose Admin Acetaminophen 650 mg 12/08/24 20:51 Acetaminophen 325 Mg Tablet PO Q4H PRN Mild Pain (1-3) or Fever Hydrocodone Bitart/Acetaminophen 1 tab 12/08/24 20:51 Hydrocodone/Acetaminophen (*Crx) 5-325 Mg Tablet PO Q4H PRN Pain Rated 4-6 Albuterol/Ipratropium 3 ml 12/09/24 14:00 12/12/24 07:24 Ipratropium 0.5 Mg/Albuterol Sulfate 2.5 Mg Ampul.Neb 3 Ml INHALATION 3 ml Q6HRT ZACHARY Administration Benzonatate 100 mg 12/10/24 13:30 12/11/24 17:29 Benzonatate 100 Mg Capsule PO 100 mg TID ZACHARY Administration Cyanocobalamin 5,000 mcg 12/10/24 09:00 12/11/24 08:57 Cyanocobalamin 1,000 Mcg Tablet PO 5,000 mcg DAILY ZACHARY Administration Diltiazem HCl 300 mg 12/09/24 09:00 12/11/24 08:58 Diltiazem Hcl Cd 300 Mg Cap.24hr PO 300 mg DAILY ZACHARY Administration Duloxetine HCl 20 mg 12/09/24 09:00 12/11/24 17:29 Duloxetine Hcl 20 Mg Capsule.Dr PO 20 mg BID ZACHARY Administration Enoxaparin Sodium 40 mg 12/10/24 09:00 12/11/24 08:58 Enoxaparin 40 Mg/0.4 Ml Syringe SUB-Q 40 mg DAILY ZACHARY Administration Ferrous Sulfate 325 mg 12/09/24 21:00 12/11/24 20:52 Ferrous Sulfate 325 Mg Tablet BY MOUTH 325 mg HS ZACHARY Administration Guaifenesin 600 mg 12/09/24 09:00 12/11/24 20:52 Guaifenesin 12 Hr 600 Mg Tabcr PO 600 mg Q12HR ZACHARY Administration Ceftriaxone Sodium 1 gm/ 50 mls @ 100 mls/hr 12/09/24 18:00 12/11/24 18:00 Sodium Chloride IVPB Infused Q24H ZACHARY Infusion Azithromycin 500 mg/ Sodium 250 mls @ 250 mls/hr 12/09/24 19:00 12/11/24 21:10 Chloride IVPB 12/12/24 19:59 Infused Q24H ZACHARY Infusion Levothyroxine Sodium 75 mcg 12/09/24 09:00 12/12/24 05:44 Levothyroxine Sodium 75 Mcg Tablet PO 75 mcg DAILY@0630 ZACHARY Administration Multivitamins/Calcium 1 tablet 12/10/24 13:30 12/11/24 08:57 Therapeutic Multivitamins/Minerals Tab (*Bkc) PO 1 tablet DAILY ZACHARY Administration Oxybutynin Chloride 5 mg 12/09/24 09:00 12/11/24 17:29 Oxybutynin Chloride 5 Mg Tablet PO 5 mg BID ZACHARY Administration Pantoprazole Sodium 20 mg 12/11/24 09:00 12/11/24 08:57 Pantoprazole Sod Sesquihydrate 20 Mg Tab PO 20 mg QAM ZACHARY Administration Pregabalin 100 mg 12/09/24 09:00 12/11/24 20:52 Pregabalin (*Crx) 50 Mg Capsule PO 100 mg Q12HR ZACHARY Administration Ropinirole HCl 0.5 mg 12/09/24 09:00 12/11/24 20:52 Ropinirole Hcl 0.5 Mg Tablet PO 0.5 mg Q12HR ZACHARY Administration Vitamin D 125 mcg 12/09/24 09:00 12/11/24 08:57 Cholecalciferol (Vitamin D3) 125 Mcg (5,000 Units) Tablet PO 125 mcg DAILY ZACHARY Administration Radiology Results: ITS Impressions Chest X-Ray 12/08/24 17:08 Impression: Early bilateral pneumonia Chest CTA 12/09/24 17:56 IMPRESSION: Negative for pulmonary embolism. There is a probable bronchopneumonia within the right lung detailed above. There is mucous plugging noted in the right lower lobe, endobronchial lesion not excluded. Focus of abnormal densities evident in the right lower lobe which may represent atelectatic lung however underlying neoplasm is not excluded. Short-term follow-up after treatment is recommended to assess for improvement Labs Labs: Laboratory Results - last 24 hr 12/12/24 04:33 WBC 7.3 RBC 3.91 L Hgb 11.5 L Hct 36.8 L MCV 94.1 MCH 29.4 MCHC 31.3 L RDW 13.2 Plt Count 194 MPV 12.3 H Sodium 136 L Potassium 3.6 Chloride 105 Carbon Dioxide 26 Anion Gap 5 BUN 13 Creatinine 0.47 L Estim Creat Clear Calc 77 Estimated GFR > 60 Glucose 100 Calcium 8.9 Magnesium 2.4 H Total Bilirubin 0.3 AST 27 ALT 20 Alkaline Phosphatase 92 Total Protein 6.0 L Albumin 3.3 L Quality VTE Prophylaxis VTE prophylaxis: pharmacologic ordered -Patient's previous records reviewed on admission -ER notes reviewed in detail on admission -discussed all findings and current treatment plan with patient/Family/POA -Consultations reviewed for recommendations -Patient's disposition for safe discharge discussed with corrections caseworker -radiology imaging, EKG and test results I have personally reviewed and interpreted unless otherwise specified Dictation performed by [employer] direct speech recognition software, therefore business continuity specialist variants and typographical errors may occur. Hospitalist MIPS Advance Care Plan I have confirmed that the patient's Advanced Care Plan is present, code status is documented, or surrogate decision maker is listed in patient medical record.: Yes Medication Reconciliation I have utilized all available resources to obtain, update and review the patients current medications (includes all prescriptions, OTC, herbals, cannabis, and nutritional supplements).: Yes The patient is not eligible for med reconciliation; the patient is in a emergent medical situation where delaying treatment would jeopardize the patients health.: No
[2024-12-12] MEDS: CHOLECALCIFEROL (VITAMIN D3) 125 MCG (5,000 UNITS) TABLET PO (08:37)
[2024-12-12] MEDS: ENOXAPARIN 40 MG/0.4 ML SYRINGE SUB-Q (08:37)
[2024-12-12] MEDS: PREGABALIN (*CRX) 50 MG CAPSULE 100 MG PO ×2 (08:37→21:16)
[2024-12-12] MEDS: AZITHROMYCIN 500 MG TABLET PO (17:49)
[2024-12-12] MEDS: FERROUS SULFATE 325 MG TABLET BY MOUTH (21:16)
[2024-12-13] VITALS (8 sets, daily range): BP systolic 103–154; BP diastolic 67–79; PULSE 76–87; RESP 17–20; TEMP 36.4; O2SAT 96
[2024-12-13] MEDS: IPRATROPIUM 0.5 MG/ALBUTEROL SULFATE 2.5 MG AMPUL.NEB 3 ML INHALATION ×3 (02:30→14:32)
[2024-12-13 05:06] LABS: Hematocrit 35.9 % (37.0-47.0); Hemoglobin 11.1 g/dL (12.0-15.0); Mean Corpuscular HGB Conc 30.9 g/dl (32-36); Mean Corpuscular Hemoglobin 29.4 pg (26-34); Mean Corpuscular Volume 95.0 fl (80-100); Platelet Count Result 271 k/mm3 (150-375); Red Blood Count 3.78 M/mm3 (4.2-5.4); White Blood Count 7.7 K/mm3 (4.5-10.0)
[2024-12-13 05:21] LABS: Alanine Aminotransferase 19 U/L (6-35); Albumin Level 3.3 g/dL (3.5-5.1); Alkaline Phosphatase 93 U/L (38-126); Anion Gap 5 mmol/L (4-12); Aspartate Amino Transferase 22 U/L (14-36); Bilirubin,Total 0.2 mg/dL (0.2-1.3); Blood Urea Nitrogen 10 mg/dL (7-17); Calcium 9.0 mg/dL (8.4-10.2); Carbon Dioxide 32 mmol/L (22-30); Chloride 103 mmol/L (98-107); Estimated CRCL calculation 63 ml/min; Estimated Glomerular Filt Rate > 60; Glucose 101 mg/dL (65-110); Magnesium 2.3 mg/dL (1.6-2.3); Potassium 3.6 mmol/L (3.4-5.0); Sodium 140 mmol/L (137-145); Total Protein 6.0 g/dL (6.3-8.2)
[2024-12-13] MEDS: LEVOTHYROXINE SODIUM 75 MCG TABLET PO (06:16)
[2024-12-13] MEDS: PREGABALIN (*CRX) 50 MG CAPSULE 100 MG PO (08:51)
[2024-12-13] MEDS: CHOLECALCIFEROL (VITAMIN D3) 125 MCG (5,000 UNITS) TABLET PO (08:51)
[2024-12-13] MEDS: CYANOCOBALAMIN 1,000 MCG TABLET 5000 MCG PO (08:51)
[2024-12-13] MEDS: ENOXAPARIN 40 MG/0.4 ML SYRINGE SUB-Q (08:52)
[2024-12-13] MEDS: PANTOPRAZOLE SOD SESQUIHYDRATE 20 MG TAB PO (08:52)
[2024-12-13] MEDS: guaiFENesin 12 HR 600 MG TABCR PO (08:52)
[2024-12-13] MEDS: BENZONATATE 100 MG CAPSULE PO ×2 (08:52→12:37)
[2024-12-13] MEDS: THERAPEUTIC MULTIVITAMINS/MINERALS TAB (*BKC) 1 TABLET PO (08:52)
[2024-12-13] MEDS: dilTIAZem HCL CD 300 MG CAP.24HR PO (08:52)
--- NOTE | 2024-12-13 13:36 | P.DS_ITS ---
DS: Admitting Diagnosis Discharge Date 12/13/2024 Admitting Diagnosis pneumonia DS: Discharge Diagnosis Discharge Diagnosis (1) Pneumonia: Qualifiers: Laterality: right Lung location: upper lobe of lung Pneumonia type: due to unspecified organism Qualified Code(s): J18.9 - Pneumonia, unspecified organism Code(s): J18.9 - Pneumonia, unspecified organism Status: Acute Assessment and Plan: Patient with generalized weakness and productive cough CXR showing early bilateral pneumonia mild leukocytosis * Bronchodilators. * incentive spirometry while awake. * Add chest physiotherapy b.i.d. * influenza/COVID/RSV negative * IV antibiotic therapy transitioned to oral Augmentin completed her oral azithromycin * supplemental oxygen therapy to maintain oxygen 92%, currently on room air * Mucolytic b.i.d. * PEP therapy (2) Diastolic congestive heart failure: Code(s): I50.30 - Unspecified diastolic (congestive) heart failure Status: Acute Assessment and Plan: Acute diastolic heart failure, BNP 1100 no previous history of heart failure echocardiogram ordered showing grade 1 diastolic heart failure with LVEF 50-55% * CXR with early pneumonia * CT pending * Patient on Cardizem unsure why * Will monitor for pulmonary congestion (3) Anemia: Code(s): D64.9 - Anemia, unspecified Status: Acute Assessment and Plan: Iron deficiency anemia * Continue patient's ferrous sulfate (4) Spasmodic bladder: Code(s): N32.89 - Other specified disorders of bladder Status: Acute Assessment and Plan: * Continue patient on oxybutynin (5) Neuropathy: Code(s): G62.9 - Polyneuropathy, unspecified Status: Acute Assessment and Plan: * Continue patient's gabapentin (6) Restless leg syndrome: Code(s): G25.81 - Restless legs syndrome Status: Acute Assessment and Plan: continue requip (7) Acute respiratory failure with hypoxia: Code(s): J96.01 - Acute respiratory failure with hypoxia Status: Resolved Assessment and Plan: RESOLVED Patient was initially requiring 3 L supplemental oxygen to maintain 92% but now has currently been weaned back to room air * D-dimer mildly elevated with some tachycardia CTA no PE showing bronchopneumonia * Will continue to treat underlying pneumonia * Elevated BNP echo did show grade 1 diastolic heart failure monitor for pulmonary edema DS: Summary Hospital Course Reason for hospitalization: weakness Hospital Course: Patient is a 89 year old female who was admitted for acut respiratory failure secondary to bronchopneumonia and worsening weakness. Patient's pneumonia was treated with IV azithromycin and IV ceftriaxone. Patient was switched to PO azithromycin and PO Augmentin to complete the course on discharge. Patient required oxygen to maintain o2 sats > 92%. Patient was treated with chest physiotherapy and mucinex. Patient was evaluated by PT/OT and it was recommended for patient to discharge with HHC once improved. Patient was weaned off oxygen onto room air. Patient improved and patient was discharged home with HHC ordered. Patient to follow up with her PCP within 1-2 weeks of discharge. Time Spent with Patient Time attestation: Total time spent providing and/or coordinating discharge services:40 Minutes Exam Const: General: comfortable and no acute distress Other: Pleasant elderly female fatigued during assessment HENMT: Mouth: Yes moist mucous membranes Eyes: General: appearance normal, both eyes and all related structures Pupils: Equal, round and reactive pupils present Neck: Neck: supple and no JVD Resp: Effort & Inspection: normal respiratory effort Auscultation: rhonchi and diminished lung sounds Cardio: Rate: regular rate Rhythm: regular rhythm GI: Auscultation: normal bowel sounds Skin: General skin exam: normal color and no rashes or lesions noted Wounds: no wounds Neuro: Cranial nerves: Yes Equal, round and reactive pupils present Speech: normal speech Motor exam (neuro): Motor abnormalites present Sensory Exam: normal sensation Other: Unable to assess gait PT/OT evaluation pending Psych: Mental Status: mental status grossly normal Affect: normal affect DS: Data Data Completed and Pending Labs on day of discharge: Labs from last 24 hours 12/13/24 04:17 WBC 7.7 RBC 3.78 L Hgb 11.1 L Hct 35.9 L MCV 95.0 MCH 29.4 MCHC 30.9 L RDW 13.4 Plt Count 271 MPV 11.2 H Sodium 140 Potassium 3.6 Chloride 103 Carbon Dioxide 32 H Anion Gap 5 BUN 10 Creatinine 0.59 L Estim Creat Clear Calc 63 Estimated GFR > 60 Glucose 101 Calcium 9.0 Magnesium 2.3 Total Bilirubin 0.2 AST 22 ALT 19 Alkaline Phosphatase 93 Total Protein 6.0 L Albumin 3.3 L Preliminary micro results at discharge 12/08/24 17:36 Blood Culture - Preliminary Blood 12/08/24 18:17 Blood Culture - Preliminary Blood Discharge Plan Discharge Attending physician on discharge: Katie Wyatt Consulting providers: Smiley Stevenson; Kit Aparicio; Iesha Perez; Doroteo Yee; Ludwig Carpenter Discharging Clinician: Luisa James Patient Disposition: Home with Home Health Service Activity: as tolerated Diet: heart healthy Discharge Instructions: Per Care Coordination: [facility] will contact you prior to their first visit. [facility] will follow for RN and PT/OT eval and treat. [facility] can be contacted at [phone]. Patient Instructions: Antibiotic Form Patient Language: Sami Stand Alone Forms: General Discharge Information Follow-up/Referrals: Christiano Matias MD [Primary Care Provider, Family Practice] Referral Note: call for an appointment to be seen within 1-2 weeks of discharge. Discharge Medications: Continued atorvastatin 10 mg tablet 10 mg PO HS diltiazem HCl [Cartia XT] 300 mg capsule,extended release 24hr 300 mg PO DAILY oxybutynin chloride 5 mg tablet 5 mg PO BID omeprazole magnesium [Prilosec OTC] 20 mg tablet,delayed release (DR/EC) 20 mg PO DAILY Caltrate 600-D Plus Minerals 600 mg calcium- 800 unit-50 mg tablet 1 tablet PO DAILY cholecalciferol (vitamin D3) [Vitamin D3] 50 mcg (2,000 unit) tablet 2,000 unit PO DAILY cyanocobalamin (vitamin B-12) 5,000 mcg capsule 5,000 mcg PO DAILY Theratrum Complete with Lutein Tablet pantoprazole 20 mg tablet,delayed release (DR/EC) 20 mg PO QAM No Action ciprofloxacin HCl 250 mg tablet 250 mg PO Q12H Qty: 14 0RF Rx Instructions: finish all doses of medication nitrofurantoin monohyd/m-cryst [Macrobid] 100 mg capsule 100 mg PO Q12H 5 Days Qty: 10 0RF Rx Instructions: must administer with a meal/food ropinirole 0.5 mg tablet 0.5 mg PO TID Qty: 270 0RF duloxetine 60 mg capsule,delayed release(DR/EC) 60 mg PO DAILY Qty: 90 1RF pregabalin [Lyrica] 100 mg capsule 100 mg PO BID ferrous sulfate 325 mg (65 mg iron) tablet 325 mg PO HS Qty: 90 1RF levothyroxine 75 mcg tablet 75 mcg PO DAILY Qty: 90 1RF Date of admission: 12/08/24 20:53 Primary Care Provider: Christiano Matias Admitting Provider: Jennifer Kirkpatrick Attending physician on admission: Luisa James Condition: Stable Quality VTE Prophylaxis VTE prophylaxis: pharmacologic ordered
== END 2024-12-13 14:05 | disposition home health service (06) | DRG 193 ==
LOC: ANHED 16:38 → ANH3MEDSUR 21:43 → ANH2MED 22:31
PROVIDERS: Nurse Practitioner Family; Admitting Provider Internal Medicine; Emergency Provider Emergency Medicine; PCP Family Medicine; Visit Provider Nurse Practitioner Adult Health
DX: J18.9 Pneumonia, unspecified organism (principal); I50.31 Acute diastolic (congestive) heart failure; J96.01 Acute respiratory failure with hypoxia; Z20.822 Contact with and (suspected) exposure to COVID-19; D50.9 Iron deficiency anemia, unspecified; N32.89 Other specified disorders of bladder; G25.81 Restless legs syndrome; G62.9 Polyneuropathy, unspecified; E03.9 Hypothyroidism, unspecified; E78.5 Hyperlipidemia, unspecified; K21.9 Gastro-esophageal reflux disease without esophagitis
CPT/HCPCS: 36415; 71045; 71275; 80053; 83605; 83735; 83880; 84443; 85025; 85027; 85380; 85610; 85730; 87040; 87637; 93005; 93306; 94640; 94667; 94668; 96365; 96367; 97110; 97161; 97165; 97530; 97535; 99285; A9270; J0456; J0696; J1650; J7050; Q9967

== ENCOUNTER 2024-12-22 18:13 | Emergency (ER) | payer MEDICARE, SELFPAY ==
[2024-12-22 18:39] VITALS: BP 110/52; PULSE 72; RESP 18; TEMP 36.9; O2SAT 97
--- NOTE | 2024-12-22 18:56 | ED.FEMALEGU ---
HPI - Female Genitourinary General Chief complaint: Urogenital-Female Stated complaint: urinary irritation Time Seen by Provider: 12/22/24 18:52 Source: patient, family and RN notes reviewed Mode of arrival: wheelchair Limitations: no limitations History of Present Illness HPI Narrative: 89 year old female accompanied by family members with complaints of burning with urination voiding small amounts at a time, frequency fatigue and feeling a little confused at times for the past 2-3 days. Patient was recently hospitalized for pneumonia for 6 days and received Rocephin, Azithromycin and was sent home on 2 days of Augmentin on the 13 of December. Daughter states that when ambulance took her to hospital on the they told them in the ED that patient had foul smelling urine but was not checked for UTI. Daughter reports that patient has not had a fever and has been drinking and eating fairly. MD elicited complaint: UTI Pertinent past history: overactive bladder and other (UTI, pneumonia) Onset (ago): day(s) (3) Location of symptoms: urethra Severity: moderate Vaginal discharge: none Related Data Home Medications ?Medication ?Instructions ?Recorded ?Confirmed ?Last Taken ?Type duloxetine 20 mg capsule,delayed 20 mg PO BID 01/17/19 09/27/24 10/10/20 History release calcium 600 mg (as 1 cap PO DAILY 02/10/19 09/27/24 10/10/20 History carbonate)-vitamin D3 5 mcg (200 unit) capsule (Calcium 600 + D(3)) cholecalciferol (vitamin D3) 50 2,000 unit PO DAILY 02/10/19 09/27/24 10/10/20 History mcg (2,000 unit) tablet (Vitamin D3) multivitamin 1 tablet PO DAILY 02/10/19 09/27/24 10/10/20 History pregabalin 100 mg capsule (Lyrica) 100 mg PO BID 10/25/19 09/27/24 10/10/20 History cyanocobalamin (vitamin B-12) 5,000 mcg BYMOUTH DAILY 09/05/21 09/27/24 Unknown History atorvastatin 10 mg tablet 10 mg PO HS 12/08/24 12/08/24 Unknown History calcium 600 mg-D3 800 unit-mag11 1 tablet PO DAILY 12/08/24 12/08/24 Unknown History 50 gg-khyv-hpjcpt-albert-s.borat tablet (Caltrate 600-D Plus Minerals) cholecalciferol (vitamin D3) 50 2,000 unit PO DAILY 12/08/24 12/08/24 Unknown History mcg (2,000 unit) tablet (Vitamin D3) cyanocobalamin (vitamin B-12) 500 2,500 mcg PO DAILY 12/08/24 12/09/24 Unknown History mcg tablet (Vitamin B-12) diltiazem HCl 300 mg 300 mg PO DAILY 12/08/24 12/08/24 Unknown History capsule,extended release 24 hr (Cartia XT) duloxetine 20 mg capsule,delayed 20 mg PO BID 12/08/24 12/08/24 Unknown History release ferrous sulfate 325 mg (65 mg 325 mg PO HS 12/08/24 12/08/24 Unknown History iron) tablet levothyroxine 75 mcg tablet 75 mcg PO DAILY 12/08/24 12/08/24 Unknown History omeprazole magnesium 20 mg 20 mg PO DAILY 12/08/24 12/08/24 Unknown History tablet,delayed release (Prilosec OTC) oxybutynin chloride 5 mg tablet 5 mg PO BID 12/08/24 12/08/24 Unknown History pregabalin 100 mg capsule 100 mg PO BID 12/08/24 12/08/24 Unknown History ropinirole 0.5 mg tablet 0.5 mg PO BID 12/08/24 12/08/24 Unknown History cyanocobalamin (vitamin B-12) 5,000 mcg PO DAILY 12/09/24 12/09/24 Unknown History 5,000 mcg capsule bhidtqch-fysldzh-dbms-lutein tablet 12/10/24 Unknown History tablet (Theratrum Complete with Lutein tablet) pantoprazole 20 mg tablet,delayed 20 mg PO QAM 12/10/24 12/10/24 Unknown History release Allergies Allergy/AdvReac Type Severity Reaction Status Date / Time ibuprofen Allergy Severe BLEEDING Verified 12/22/24 18:33 ULCER sulfamethoxazole (From AdvReac Severe Dizziness Verified 12/22/24 18:33 Bactrim) trimethoprim (From Bactrim) AdvReac Severe Dizziness Verified 12/22/24 18:33 pseudoephedrine AdvReac Mild N/V Verified 12/22/24 18:33 naproxen AdvReac Unknown ULCER Verified 12/22/24 18:33 Review of Systems Review of Systems: CONSTITUTIONAL: Denies fever, chills, or sweats. CARDIOVASCULAR: Denies chest pain, palpitations, or edema. RESPIRATORY: Denies cough or dyspnea. GASTROINTESTINAL: Denies abdominal pain, nausea, vomiting, or diarrhea. GENITOURINARY: Reports dysuria, frequency, urgency. Denies flank pain or hematuria.going in small amounts and states feels a little confused at times. SKIN: Denies rash or itching. MUSCULOSKELETAL: Denies back pain or myalgia. Denies CVA tenderness NEUROLOGIC: Denies headache All systems reviewed & are unremarkable except as noted in HPI and below PMFSH Past Medical History Medical History Restless leg syndrome Neuropathy Spasmodic bladder Anemia Hypothyroidism Hyperlipidemia Hypothyroid Gastroesophageal reflux disease Chronic anemia Colon cancer (12/2018) Status post partial colectomy and chemotherapy. Restless leg syndrome Hypertension Frequent falls Stress incontinence History of stress test Negative stress test around 2004. Glaucoma Cataract left Arthritis History of kidney stones Osteoarthritis Vitamin D deficiency Dyslipidemia Idiopathic peripheral neuropathy Chronic low back pain Peptic ulcer (2002) Surgical History Surgical History H/O colectomy History of ankle surgery (~09/2020) Lt ORIF Fibula shaft and malleolar fx History of orthopedic surgery Pinning left hip fracture. History of lithotripsy History of total hysterectomy History of appendectomy History of right hemicolectomy (01/06/19) Right hemicolectomy with anastomosis distal ileum to transverse colon. History of cholecystectomy (01/06/19) Laparoscopic cholecystectomy with IOC. Family History Family History Father Hypertension Family history of cardiovascular disease Mother Family history of cardiovascular disease Cerebrovascular accident Sibling Family history of cardiovascular disease Cerebrovascular accident Sibling Heart disease Mother Heart attack Daughter Heart disease Pacemaker Other Arthritis Social History Social History Social History: Rosy is a , she lives in her own home. Her daughter, Daphne lives nearby and is active in her care as needed. Surrogate decision maker: Daphne Kelly, daughter. Code status: Full code. Smoking status: Never smoker Second hand tobacco smoke exposure: No Alcohol intake: never Substance use: never Substance use type: does not use Do You Feel Safe in your Home?: Yes Lack of Transportation: No Lack of Food: Never True Current Housing: I Have Housing Concerned About Future Housing: No Difficulty Paying Gas/Electric Bills: No Difficulty Paying for Meds: No Currently Unemployed: No Education: High School Diploma/GED Difficulty w/ Childcare or Family Care: No Living arrangements: alone Additional living arrangements comments: The patient lives in her own home in [place]. 2 grown children. Occupation/Education: retired Additional occupation/education comments: [employer] Gender identity (if verbalized by the patient): Female Sexual Orientation (if Verbalized by the Patient): Straight or Heterosexual Spiritual care concerns: Yes Agree to blood products: Yes Comments At time of signature, agree with nursing past medical, surgical, social and family history. There is no relevant family history pertinent to the presenting complaint Exam Narrative: GENERAL:chronic ill appearing elderly presents per wheelchair with famil, well-nourished, and in no acute distress.is afebrile HEAD: Normocephalic, atraumatic. NECK: Supple. no lymphadenopathy CHEST: faint crackles to lung bases on auscultation. No respiratory distress.SAO2 97% on room air HEART: Regular rate and rhythm. No murmur heard. Normal peripheral pulses. ABDOMEN: Soft, nontender, nondistended, normal active bowel sounds. No CVA tenderness, reports burning and UTI symptoms EXTREMITIES: Normal range of motion. Trace pedal edema. SKIN: Warm, dry, no rash. NEURO: No focal deficits. Alert and oriented x3. answers questions appropriately Course Course Emergency Course: Patient is aware of diagnosis, understands and agrees to treatment plan.? Anticipatory guidance given.? Patient agrees to follow-up as directed and is aware of reasons to seek care at the emergency department. Portions of this record may have been created with voice recognition software Level of Care: Express Care Visit Vital Signs Vital signs: Vital Signs Temperature 36.9 C 12/22/24 18:39 Pulse Rate 72 12/22/24 18:39 Respiratory Rate 18 12/22/24 18:39 Blood Pressure 110/52 L 12/22/24 18:39 Pulse Oximetry 97 12/22/24 18:39 Oxygen Delivery Room Air 12/22/24 18:39 Temperature 36.9 C 12/22/24 18:39 Pulse Rate 72 12/22/24 18:39 Respiratory Rate 18 12/22/24 18:39 Blood Pressure 110/52 L 12/22/24 18:39 Pulse Oximetry 97 12/22/24 18:39 Oxygen Delivery Room Air 12/22/24 18:39 reviewed MDM - Female Genitourinary MDM Narrative Medical decision making narrative: Exam findings and UA show no acute concerns or changes; patient is non-toxic appearing and is in no distress.? Patient is appropriate for outpatient treatment and follow-up. Differential Diagnosis Differential diagnosis: Likely urinary tract infection, cystitis and other (dysuria) Medical Records Attestation: I reviewed the patient's medical records. Lab Data Attestation: I reviewed the patient's lab results. Lab results narrative: Urine dip glucose negative bilirubin negative ketone trace specific gravity 1.025, blood 3+, pH 7.0, protein 3+, urobilinogen 0.2 nitrate positive, leukocyte 3+ Labs: Lab Results 12/22/24 Range/Units 19:06 POC Urine Color Dark POC Urine Clarity Cloudy POC Urine pH 7.0 POC Ur Specif [place] 1.025 POC Urine Protein 3+ (Negative) POC Ur Glucose (UA) Negative (Negative) POC Urine Ketones Trace (Negative) POC Urine Blood 3+ (Negative) POC Urine Nitrite Positive (Negative) POC Urine Bilirubin Negative (Negative) POC Urine Urobilinogen 0.2 POC U Leukocyte Esteras 3+ (Negative) reviewed Critical Care Time Critical Care Time Critical Care Time: No Discharge Plan Discharge Clinical Impression: Urinary tract infection Qualifiers: Urinary tract infection type: site unspecified Hematuria presence: with hematuria Qualified Code(s): N39.0 - Urinary tract infection, site not specified Patient Disposition: Home Condition: Stable Instructions: Antibiotic Form, Urinary Tract Infection in Women (ED) Additional Instructions: Increase fluids especially cranberry juice and water Avoid caffeine and carbonated beverages Antibiotic as directed Ciprofloxacin 250 mg 1 tablet twice daily for 7 days Tylenol/ibuprofen for pain or fever Follow-up with her primary care provider if further problems or concerns Recheck if you have fever over 101, nausea and vomiting. Please follow-up with your primary care doctor for a urine recheck after completion of antibiotics or sooner if no improvement in symptoms If your symptoms persist, change or worsen significantly before you can contact your personal physician then please, without delay, go to the emergency department for further evaluation. Follow-up with PCP in 7-10 days or sooner if needed Patient Language: German Prescriptions: New ciprofloxacin HCl 250 mg tablet 250 mg PO Q12H Qty: 14 0RF ciprofloxacin HCl 250 mg tablet 250 mg PO Q12H Qty: 14 0RF Rx Instructions: finish all doses of medication No Action duloxetine 20 mg capsule,delayed release(DR/EC) 20 mg PO BID pregabalin [Lyrica] 100 mg capsule 100 mg PO BID multivitamin Tablet 1 tablet PO DAILY Calcium 600 + D(3) 600 mg calcium- 200 unit Capsule 1 cap PO DAILY cholecalciferol (vitamin D3) [Vitamin D3] 2,000 unit Tablet 2,000 unit PO DAILY cyanocobalamin (vitamin B-12) 5,000 mcg BYMOUTH DAILY atorvastatin 10 mg tablet 10 mg PO HS levothyroxine 75 mcg tablet 75 mcg PO DAILY diltiazem HCl [Cartia XT] 300 mg capsule,extended release 24hr 300 mg PO DAILY ferrous sulfate 325 mg (65 mg iron) tablet 325 mg PO HS ropinirole 0.5 mg tablet 0.5 mg PO BID oxybutynin chloride 5 mg tablet 5 mg PO BID duloxetine 20 mg capsule,delayed release(DR/EC) 20 mg PO BID pregabalin 100 mg capsule 100 mg PO BID omeprazole magnesium [Prilosec OTC] 20 mg tablet,delayed release (DR/EC) 20 mg PO DAILY Caltrate 600-D Plus Minerals 600 mg calcium- 800 unit-50 mg tablet 1 tablet PO DAILY cholecalciferol (vitamin D3) [Vitamin D3] 50 mcg (2,000 unit) tablet 2,000 unit PO DAILY cyanocobalamin (vitamin B-12) [Vitamin B-12] 500 mcg tablet 2,500 mcg PO DAILY cyanocobalamin (vitamin B-12) 5,000 mcg capsule 5,000 mcg PO DAILY Theratrum Complete with Lutein Tablet pantoprazole 20 mg tablet,delayed release (DR/EC) 20 mg PO QAM atorvastatin 10 mg tablet 10 mg PO QHS Qty: 90 1RF levothyroxine 75 mcg tablet 75 mcg PO DAILY Qty: 90 0RF ferrous sulfate [Iron (ferrous sulfate)] 325 mg (65 mg iron) tablet 325 mg PO DAILY Qty: 90 0RF diltiazem HCl 300 mg capsule,extended release 24hr 300 mg PO DAILY Qty: 90 1RF oxybutynin chloride 5 mg tablet 5 mg PO BID Qty: 180 1RF ropinirole 0.5 mg tablet 1 mg PO TID Qty: 180 5RF Follow-up/Referrals: Christiano Matias MD [Primary Care Provider, [facility]] Time of Disposition: 19:16 Quality Tammy Coma Scale Eyes: Open Verbal: Oriented and Alert Motor: Follows Commands [place] Coma Total Score: 15
[2024-12-22 19:08] LABS: EDUAAPPEAR Cloudy; EDUABILI Negative (Negative); EDUABLOOD 3+ (Negative); EDUACOLOR1 Dark; EDUAGLUCOSE Negative (Negative); EDUAKETONE Trace (Negative); EDUALEUKO 3+ (Negative); EDUANITRATE Positive (Negative); EDUAPH 7.0; EDUAPROTEIN 3+ (Negative); EDUASPGRAVITY 1.025; EDUAUROBILI 0.2
== END 2024-12-22 19:25 | disposition home or self-care (01) ==
PROVIDERS: Emergency Provider Registered Nurse; PCP Family Medicine
DX: N39.0 Urinary tract infection, site not specified (principal); I10 Essential (primary) hypertension; G25.81 Restless legs syndrome; E03.9 Hypothyroidism, unspecified; E78.5 Hyperlipidemia, unspecified; K21.9 Gastro-esophageal reflux disease without esophagitis; H40.9 Unspecified glaucoma; M19.90 Unspecified osteoarthritis, unspecified site; E55.9 Vitamin D deficiency, unspecified; G60.9 Hereditary and idiopathic neuropathy, unspecified; D64.9 Anemia, unspecified; Z85.038 Personal history of other malignant neoplasm of large intestine; Z90.49 Acquired absence of other specified parts of digestive tract
CPT/HCPCS: 81003; 87086; 87186; 99213; G0463

== ENCOUNTER 2024-12-31 20:23 | Emergency (ER) | payer MEDICARE, SELFPAY ==
--- NOTE | ~2024-12-31 | XR_ITS ---
EXAMINATION: XR chest 1V portable DATE: 12/31/2024 23:46 INDICATION: Hypotension TECHNIQUE: frontal view of the chest was obtained. COMPARISON: Chest radiograph dated 12/08/[address] dated 12/09/2024 FINDINGS: Elevation of the right hemidiaphragm. Scattered linear discoid atelectasis/scarring in the right mid and bilateral lower lung zones. Calcified nodule left upper lung zone consistent with old granulomatous disease. Right internal jugular central venous port catheter with distal tip at the superior cavoatrial junction. Cholecystectomy clips in right upper quadrant. Moderate lumbar levoscoliosis with severe spondylosis. IMPRESSION: 1. New elevation the right hemidiaphragm. 2. Linear discoid atelectasis/scarring in the right mid and bilateral lower lung zones. Reviewed, dictated and finalized at location A. IMPRESSION: 1. New elevation the right hemidiaphragm. 2. Linear discoid atelectasis/scarring in the right mid and bilateral lower mikki g zones.
[2024-12-31 20:27] VITALS: BP 101/73; PULSE 77; RESP 20; TEMP 36.9; O2SAT 94
[2024-12-31 21:23] VITALS: BP 125/55; PULSE 77; RESP 20; O2SAT 96
[2024-12-31 23:10] LABS: Hematocrit 38.5 % (37.0-47.0); Hemoglobin 12.4 g/dL (12.0-15.0); Immature Granulocyte Percent A 0.9 % (0-0.5); Lymphocytes Absolute Auto 1.08 K/mm3 (0.9-3.2); Mean Corpuscular HGB Conc 32.2 g/dl (32-36); Mean Corpuscular Hemoglobin 29.8 pg (26-34); Mean Corpuscular Volume 92.5 fl (80-100); Nucleated Red Blood Cells Absolute Auto 0.000 K/mm3 (0.0-0.012); Nucleated Red Blood Cells Perc 0.0 % (0.0-0.2); Platelet Count Result 171 k/mm3 (150-375); Red Blood Count 4.16 M/mm3 (4.2-5.4); White Blood Count 10.9 K/mm3 (4.5-10.0)
[2024-12-31] MEDS: SODIUM CHLORIDE 0.9% IV 1,000 ML 999 ML IV CONT (23:20)
[2024-12-31 23:21] VITALS: BP 130/53; PULSE 84; RESP 20; O2SAT 94
[2024-12-31 23:22] LABS: Alanine Aminotransferase 32 U/L (6-35); Albumin Level 3.4 g/dL (3.5-5.1); Alkaline Phosphatase 112 U/L (38-126); Anion Gap 6 mmol/L (4-12); Aspartate Amino Transferase 51 U/L (14-36); Bilirubin,Total 1.2 mg/dL (0.2-1.3); Blood Urea Nitrogen 15 mg/dL (7-17); Calcium 8.6 mg/dL (8.4-10.2); Carbon Dioxide 28 mmol/L (22-30); Chloride 96 mmol/L (98-107); Estimated CRCL calculation 48 ml/min; Estimated Glomerular Filt Rate > 60; Glucose 113 mg/dL (65-110); Lipase 29 U/L (23-300); Potassium 4.0 mmol/L (3.4-5.0); Sodium 130 mmol/L (137-145); Total Protein 5.9 g/dL (6.3-8.2)
--- NOTE | 2025-01-01 00:02 | PC.NURSE ---
Report received from SOFÍA Easley. Assumed care of patient at this time.
--- NOTE | 2025-01-01 00:06 | ED.GENADULT ---
HPI - General Adult General Chief complaint: Unspecified Stated complaint: Hypotension Time Seen by Provider: 12/31/24 22:50 History of Present Illness HPI narrative: 89-year-old female with a history of recent urinary infection and recent pneumonia presenting to the emergency department today with soft blood pressure readings at home. Patient states that she mixed up her medications and actually took a double dose of her cardiac medications including Cartia. Patient called her primary care provider who stated to just watch her blood pressures at home for several hours. Her blood pressure started to become soft upon the next few hours so her daughter called EMS. EMS noted a soft blood pressure in the 80s systolic which improved to 100 upon arrival to the emergency department. Patient did not have any complaints of anything such as headache, vision changes, chest pain, shortness a breath, abdominal pain, fever, chills. Did states she had some lightheadedness when her blood pressure was low but now is resolved. No further complaints or issues while here in the emergency department. Recently started Macrobid after urine culture results showed urinary tract infection that was not being appropriately treated on previous course. She still has another several days of treatment. Related Data Home Medications ?Medication ?Instructions ?Recorded ?Confirmed ?Last Taken ?Type pregabalin 100 mg capsule (Lyrica) 100 mg PO BID 10/25/19 12/26/24 10/10/20 History atorvastatin 10 mg tablet 10 mg PO HS 12/08/24 12/26/24 Unknown History calcium 600 mg-D3 800 unit-mag11 1 tablet PO DAILY 12/08/24 12/26/24 Unknown History 50 za-dgdm-sbfywh-albert-s.borat tablet (Caltrate 600-D Plus Minerals) cholecalciferol (vitamin D3) 50 2,000 unit PO DAILY 12/08/24 12/26/24 Unknown History mcg (2,000 unit) tablet (Vitamin D3) diltiazem HCl 300 mg 300 mg PO DAILY 12/08/24 12/26/24 Unknown History capsule,extended release 24 hr (Cartia XT) omeprazole magnesium 20 mg 20 mg PO DAILY 12/08/24 12/26/24 Unknown History tablet,delayed release (Prilosec OTC) oxybutynin chloride 5 mg tablet 5 mg PO BID 12/08/24 12/26/24 Unknown History cyanocobalamin (vitamin B-12) 5,000 mcg PO DAILY 12/09/24 12/26/24 Unknown History 5,000 mcg capsule amxiksod-wfmywph-knjg-lutein tablet 12/10/24 12/26/24 Unknown History tablet (Theratrum Complete with Lutein tablet) pantoprazole 20 mg tablet,delayed 20 mg PO QAM 12/10/24 12/26/24 Unknown History release Allergies Allergy/AdvReac Type Severity Reaction Status Date / Time ibuprofen Allergy Severe BLEEDING Verified 12/31/24 21:24 ULCER sulfamethoxazole (From AdvReac Severe Dizziness Verified 12/31/24 21:24 Bactrim) trimethoprim (From Bactrim) AdvReac Severe Dizziness Verified 12/31/24 21:24 pseudoephedrine AdvReac Mild N/V Verified 12/31/24 21:24 naproxen AdvReac Unknown ULCER Verified 12/31/24 21:24 Review of Systems Review of Systems: As reviewed [facility] Past Medical History Medical History Restless leg syndrome Neuropathy Spasmodic bladder Anemia Hypothyroidism Hyperlipidemia Hypothyroid Gastroesophageal reflux disease Chronic anemia Colon cancer (12/2018) Status post partial colectomy and chemotherapy. Restless leg syndrome Hypertension Frequent falls Stress incontinence History of stress test Negative stress test around 2004. Glaucoma Cataract left Arthritis History of kidney stones Osteoarthritis Vitamin D deficiency Dyslipidemia Idiopathic peripheral neuropathy Chronic low back pain Peptic ulcer (2002) Surgical History Surgical History H/O colectomy History of ankle surgery (~09/2020) Lt ORIF Fibula shaft and malleolar fx History of orthopedic surgery Pinning left hip fracture. History of lithotripsy History of total hysterectomy History of appendectomy History of right hemicolectomy (01/06/19) Right hemicolectomy with anastomosis distal ileum to transverse colon. History of cholecystectomy (01/06/19) Laparoscopic cholecystectomy with IOC. Family History Family History Father Hypertension Family history of cardiovascular disease Mother Family history of cardiovascular disease Cerebrovascular accident Sibling Family history of cardiovascular disease Cerebrovascular accident Sibling Heart disease Mother Heart attack Daughter Heart disease Pacemaker Other Arthritis Social History Social History Social History: Rosy is a , she lives in her own home. Her daughter, Daphne lives nearby and is active in her care as needed. Surrogate decision maker: Daphne Kelly, daughter. Code status: Full code. Smoking status: Never smoker Second hand tobacco smoke exposure: No Alcohol intake: never Substance use: never Substance use type: does not use Do You Feel Safe in your Home?: Yes Lack of Transportation: No Lack of Food: Never True Current Housing: I Have Housing Concerned About Future Housing: No Difficulty Paying Gas/Electric Bills: No Difficulty Paying for Meds: No Currently Unemployed: No Education: High School Diploma/GED Difficulty w/ Childcare or Family Care: No Living arrangements: alone Additional living arrangements comments: The patient lives in her own home in [place]. 2 grown children. Occupation/Education: retired Additional occupation/education comments: [employer] Gender identity (if verbalized by the patient): Female Sexual Orientation (if Verbalized by the Patient): Straight or Heterosexual Spiritual care concerns: Yes Agree to blood products: Yes Exam Narrative: GENERAL: [Well-appearing, well-nourished, and in no acute distress.] HEAD: [Normocephalic, atraumatic.] EYES: [PERRLA and EOMI.] ENT: Nares clear, no rhinorrhea or epistaxis. Mucous membranes dry. NECK: Supple. CHEST: [Clear to auscultation. No respiratory distress.] HEART: [Regular rate and rhythm]. No murmur heard. [Normal peripheral pulses.] ABDOMEN: [Soft, nondistended], [nontender], [No rigidity or guarding] EXTREMITIES: Normal range of motion. [No edema.] SKIN: Warm, dry, no rash. NEURO: [No focal deficits]. Alert and oriented [x3.] PSYCH: [Normal mood and affect.] Course Vital Signs Vital signs: Vital Signs Temperature 36.9 C 12/31/24 20:27 Pulse Rate 77 12/31/24 20:27 Respiratory Rate 20 12/31/24 20:27 Blood Pressure 101/73 12/31/24 20:27 Pulse Oximetry 94 12/31/24 20:27 Oxygen Delivery Room Air 12/31/24 20:27 Temperature 36.9 C 12/31/24 20:27 Pulse Rate 84 12/31/24 23:21 Respiratory Rate 20 12/31/24 23:21 Blood Pressure 130/53 L 12/31/24 23:21 Pulse Oximetry 94 12/31/24 23:21 Oxygen Delivery Room Air 12/31/24 20:27 Medical Decision Making MDM Narrative Medical decision making narrative: 89-year-old female with a history of recent urinary infection and recent pneumonia presenting to the emergency department today with soft blood pressure readings at home. Patient states that she mixed up her medications and actually took a double dose of her cardiac medications including Cartia. Patient called her primary care provider who stated to just watch her blood pressures at home for several hours. Her blood pressure started to become soft upon the next few hours so her daughter called EMS. EMS noted a soft blood pressure in the 80s systolic which improved to 100 upon arrival to the emergency department. Patient did not have any complaints of anything such as headache, vision changes, chest pain, shortness a breath, abdominal pain, fever, chills. Did states she had some lightheadedness when her blood pressure was low but now is resolved. No further complaints or issues while here in the emergency department. Recently started Macrobid after urine culture results showed urinary tract infection that was not being appropriately treated on previous course. She still has another several days of treatment. Patient is overall very well-appearing not any acute distress. She had some lightheadedness and transit but now resolved. Current blood pressure 101/73. No tachycardia, fever, hypoxemia. No symptoms of hypoperfusion at this time and she is mentating appropriately. No chest pain or shortness of breath. Will rehydrate her and obtain laboratory studies. Patient placed on gold assayer and re-evaluated frequently. Chest x-ray EKG and urinalysis obtained with straight catheterization as well as basic laboratory studies. She was given fluids after her initial laboratory results show some dehydration with low sodium and chloride. Patient and family comfortable with the plan and feeling better after fluids on re-evaluation. No significant leukocytosis found. No anemia. Normal platelet count. Normal creatinine. Normal glucose. Negative lactic acid. Bilirubin normal. ALT and alk-phos normal. Mildly elevated AST. Normal lipase. Urinalysis without any signs of infection. Chest x-ray normal. Patient felt better after fluids and is safe for discharge home at this time. Medical Records Medical records reviewed: Yes I reviewed the external patient's medical records. Vital Signs Vital Signs: Vital Signs Temperature 36.9 C 12/31/24 20:27 Pulse Rate 77 12/31/24 20:27 Respiratory Rate 20 12/31/24 20:27 Blood Pressure 101/73 12/31/24 20:27 Pulse Oximetry 94 12/31/24 20:27 Oxygen Delivery Room Air 12/31/24 20:27 Temperature 36.9 C 12/31/24 20:27 Pulse Rate 84 12/31/24 23:21 Respiratory Rate 20 12/31/24 23:21 Blood Pressure 130/53 L 12/31/24 23:21 Pulse Oximetry 94 12/31/24 23:21 Oxygen Delivery Room Air 12/31/24 20:27 Lab Data Lab results reviewed: Yes I reviewed the patient's lab results. 12/31/24 23:03 12/31/24 23:03 Labs: Lab Results 12/31/24 12/31/24 01/01/25 Range/Units 23:03 23:03 00:23 WBC 10.9 H (4.5-10.0) K/mm3 RBC 4.16 L (4.2-5.4) M/mm3 Hgb 12.4 (12.0-15.0) g/dL Hct 38.5 (37.0-47.0) % MCV 92.5 (80-100) fl MCH 29.8 (26-34) pg MCHC 32.2 (32-36) g/dl RDW 14.1 (11.5-14.5) % Plt Count 171 (150-375) k/mm3 MPV 11.0 H (7.4-10.4) fl Immature Gran % (Auto) 0.9 H (0-0.5) % Neut % (Auto) 67.2 (45.5-73.1) % Lymph % (Auto) 9.9 L (18.3-44.2) % [place] % (Auto) 14.9 H (2.6-8.5) % Eos % (Auto) 6.6 H (0-4.4) % Baso % (Auto) 0.5 (0.2-1.2) % Lymph # (Auto) 1.08 (0.9-3.2) K/mm3 [place] # (Auto) 1.6 H (0.1-0.6) K/mm3 Eos # (Auto) 0.7 H (0-0.3) K/mm3 Baso # (Auto) 0.1 (0.0-0.1) K/mm3 Abs Immat Gran (auto) 0.10 H (0.00-0.031) K/mm3 Absolute Neuts (auto) 7.3 H (1.3-6.7) K/mm3 Absolute Nucleated RBC 0.000 (0.0-0.012) K/mm3 Nucleated RBC % 0.0 (0.0-0.2) % Sodium 130 L (137-145) mmol/L Potassium 4.0 (3.4-5.0) mmol/L Chloride 96 L (98-107) mmol/L Carbon Dioxide 28 (22-30) mmol/L Anion Gap 6 (4-12) mmol/L BUN 15 D (7-17) mg/dL Creatinine 0.81 (0.7-1.0) mg/dL Estim Creat Clear Calc 48 ml/min Estimated GFR > 60 (59 - ) Glucose 113 H (65-110) mg/dL Lactic Acid (0.7-2.0) mmol/L Calcium 8.6 (8.4-10.2) mg/dL Total Bilirubin 1.2 (0.2-1.3) mg/dL AST 51 H (14-36) U/L ALT 32 (6-35) U/L Alkaline Phosphatase 112 (38-126) U/L Total Protein 5.9 L (6.3-8.2) g/dL Albumin 3.4 L (3.5-5.1) g/dL Lipase 29 Cancelled (23-300) U/L Urine Color Yellow (Yellow) Urine Appearance Clear (Clear) Urine pH 6.5 (5.0-9.0) Ur Specific [place] 1.002 (1.001-1.035) Urine Protein Negative (Negative) mg/dL Urine Glucose (UA) Negative (Negative) mg/dL Urine Ketones Negative (Negative) mg/dL Ur Blood (Man) Negative (Negative) Urine Nitrate Negative (Negative) Urine Bilirubin Negative (Negative) Urine Urobilinogen 0.2 (<2.0) mg/dL Leukocyte Esterase Rfl Negative (Negative) [place]/UL 01/01/25 Range/Units 00:40 WBC (4.5-10.0) K/mm3 RBC (4.2-5.4) M/mm3 Hgb (12.0-15.0) g/dL Hct (37.0-47.0) % MCV (80-100) fl MCH (26-34) pg MCHC (32-36) g/dl RDW (11.5-14.5) % Plt Count (150-375) k/mm3 MPV (7.4-10.4) fl Immature Gran % (Auto) (0-0.5) % Neut % (Auto) (45.5-73.1) % Lymph % (Auto) (18.3-44.2) % [place] % (Auto) (2.6-8.5) % Eos % (Auto) (0-4.4) % Baso % (Auto) (0.2-1.2) % Lymph # (Auto) (0.9-3.2) K/mm3 [place] # (Auto) (0.1-0.6) K/mm3 Eos # (Auto) (0-0.3) K/mm3 Baso # (Auto) (0.0-0.1) K/mm3 Abs Immat Gran (auto) (0.00-0.031) K/mm3 Absolute Neuts (auto) (1.3-6.7) K/mm3 Absolute Nucleated RBC (0.0-0.012) K/mm3 Nucleated RBC % (0.0-0.2) % Sodium (137-145) mmol/L Potassium (3.4-5.0) mmol/L Chloride (98-107) mmol/L Carbon Dioxide (22-30) mmol/L Anion Gap (4-12) mmol/L BUN (7-17) mg/dL Creatinine (0.7-1.0) mg/dL Estim Creat Clear Calc ml/min Estimated GFR (59 - ) Glucose (65-110) mg/dL Lactic Acid 0.7 (0.7-2.0) mmol/L Calcium (8.4-10.2) mg/dL Total Bilirubin (0.2-1.3) mg/dL AST (14-36) U/L ALT (6-35) U/L Alkaline Phosphatase (38-126) U/L Total Protein (6.3-8.2) g/dL Albumin (3.5-5.1) g/dL Lipase (23-300) U/L Urine Color (Yellow) Urine Appearance (Clear) Urine pH (5.0-9.0) Ur Specific [place] (1.001-1.035) Urine Protein (Negative) mg/dL Urine Glucose (UA) (Negative) mg/dL Urine Ketones (Negative) mg/dL Ur Blood (Man) (Negative) Urine Nitrate (Negative) Urine Bilirubin (Negative) Urine Urobilinogen (<2.0) mg/dL Leukocyte Esterase Rfl (Negative) [place]/UL Imaging Data Attestation: I personally reviewed and interpreted this imaging study as follows: My impression: No acute findings Discharge Plan Discharge Clinical Impression: Accidental drug ingestion, Acute dehydration Patient Disposition: Home Condition: Stable Instructions: Antibiotic Form Additional Instructions: Laboratory studies show some slight dehydration. Blood pressure improved with fluids without any other interventions. Urinalysis shows clearing up of the infection. Continue taking antibiotics until completion. No other abnormalities found today. Return with any emergent concerns otherwise follow-up with regular primary care provider next 3-5 days of possible. Patient Language: Malawian Prescriptions: No Action ciprofloxacin HCl 250 mg tablet 250 mg PO Q12H Qty: 14 0RF Rx Instructions: finish all doses of medication nitrofurantoin monohyd/m-cryst [Macrobid] 100 mg capsule 100 mg PO Q12H 5 Days Qty: 10 0RF Rx Instructions: must administer with a meal/food ropinirole 0.5 mg tablet 0.5 mg PO TID Qty: 270 0RF duloxetine 60 mg capsule,delayed release(DR/EC) 60 mg PO DAILY Qty: 90 1RF pregabalin [Lyrica] 100 mg capsule 100 mg PO BID atorvastatin 10 mg tablet 10 mg PO HS diltiazem HCl [Cartia XT] 300 mg capsule,extended release 24hr 300 mg PO DAILY oxybutynin chloride 5 mg tablet 5 mg PO BID omeprazole magnesium [Prilosec OTC] 20 mg tablet,delayed release (DR/EC) 20 mg PO DAILY Caltrate 600-D Plus Minerals 600 mg calcium- 800 unit-50 mg tablet 1 tablet PO DAILY cholecalciferol (vitamin D3) [Vitamin D3] 50 mcg (2,000 unit) tablet 2,000 unit PO DAILY cyanocobalamin (vitamin B-12) 5,000 mcg capsule 5,000 mcg PO DAILY Theratrum Complete with Lutein Tablet pantoprazole 20 mg tablet,delayed release (DR/EC) 20 mg PO QAM ferrous sulfate 325 mg (65 mg iron) tablet 325 mg PO HS Qty: 90 1RF levothyroxine 75 mcg tablet 75 mcg PO DAILY Qty: 90 1RF Follow-up/Referrals: Christiano Matias MD [Primary Care Provider, [facility]] Time of Disposition: 01:54
[2025-01-01] MEDS: SODIUM CHLORIDE 0.9% IV 1,000 ML 999 ML IV CONT (00:17)
[2025-01-01 00:35] LABS: Add Urine Microscopic? NO; Appearance Urine Clear (Clear); Glucose Urine UA Negative (Negative); Leukocyte Esterase Ur Negative LEU/UL (Negative); Nitrate Urine Negative (Negative); Specific Grav Ur 1.002 (1.001-1.035)
[2025-01-01 02:27] VITALS: BP 125/79; PULSE 77; RESP 17; O2SAT 97
== END 2025-01-01 02:50 | disposition home or self-care (01) ==
PROVIDERS: Emergency Provider Student in an Organized Health Care Education/Training Program; PCP Family Medicine
DX: T46.1X1A Poisoning by calcium-channel blockers, accidental (unintentional), initial encounter (principal); E86.0 Dehydration; E03.9 Hypothyroidism, unspecified; E78.5 Hyperlipidemia, unspecified; K21.9 Gastro-esophageal reflux disease without esophagitis; D64.9 Anemia, unspecified; N39.3 Stress incontinence (female) (male); M19.90 Unspecified osteoarthritis, unspecified site; G25.81 Restless legs syndrome; G60.9 Hereditary and idiopathic neuropathy, unspecified; Z85.038 Personal history of other malignant neoplasm of large intestine; Z87.01 Personal history of pneumonia (recurrent); Z87.440 Personal history of urinary (tract) infections; Z87.442 Personal history of urinary calculi; Z87.11 Personal history of peptic ulcer disease; Z90.49 Acquired absence of other specified parts of digestive tract; Z90.710 Acquired absence of both cervix and uterus; Z79.899 Other long term (current) drug therapy
CPT/HCPCS: 36415; 71045; 80053; 81003; 83605; 83690; 85025; 96360; 96361; 99283; J7030

== ENCOUNTER 2025-01-10 12:30 | Outpatient (NON) | payer MEDICARE, SELFPAY ==
--- OUTSIDE RECORDS SUMMARY | 2025-01-10 13:45 | XMS_ITS | Clinical Summary ---
Author Organization [facility] Roxanne medina [place] Address [address] [place] [address] Care Team Providers Care Business Analytics Analyst Name Role Phone Matilde Matias MD Primary Care Provider Allergies Active Allergy Reactions Criticality Noted Date Comments Ibuprofen Hives High 02/15/2019 Pseudoephedrine Hives High 02/15/2019 Medications atorvastatin (LIPITOR) 10 mg tablet atorvastatin 10 mg tablet 9 Active gabapentin (NEURONTIN) 100 mg capsule gabapentin 100 mg capsule 9 Active melatonin 10 mg Capsule 9 Active multivitamin,t h-tawk-yp-min (THERA-M) 27-0.4 mg Tablet Take 1 Tablet [...] office injection administered by the provider Active mcv-N5-yxr13-z jnf-ytu-zbia-b or 600 mg calcium- 800 unit-50 mg Tablet 9 Active lidocaine PF 1% (XYLOCAINE MPF) Solution lidocaine (PF) 10 mg/mL (1 %) injection solution In office injection administered by the provider Active omeprazole (PriLOSEC) 20 mg Capsule, Delayed Release(E.C.) 9 Active acetaminophen (Tylenol) 325 mg Capsule 9 Active omeprazole (PriLOSEC) 20 mg Capsule, Delayed Release(E.C.) 9 Active cjn-U8-gqe10-z ktq-nln-dzon-b or 600 mg calcium- 800 unit-50 mg [...] Tablet per tablet Centrum Silver Activ e Rt-G0-xsz-zinc -gio-ysih-kwqq n (Caltrate 600-D Plus Minerals) 600 mg [...] on file 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
--- OUTSIDE RECORDS SUMMARY | 2025-01-10 13:45 | XMS_ITS | Clinical Summary ---
Author Organization [facility] Address [address] [address] Phone Care Team Providers Care Clinical Account Executive Name Role Phone Mtailde Matias MD Primary Care Provider Social History [...] (Adult) (1 - 1-dose 75+ series) 09/13/2010 Influenza Immunization (#1) 11/13/202412/13, 01/09/2019, 12/13/2017, Additional history exists SARS-COV-2 Immunization ( season) 2024 01/15/2021, 05/21/2020, 04/17/2020 Pneumococcal Immunization (50+ years) Completed 12/15/2017, 12/15/2016 [...] age to complete this topic Insurance MEDICARE [facility] Care Teams Clinical Account Executive Relationship Specialty Start Date End Date Matilde Matias MD PCP - General Family Medicine 07/01/18
--- OUTSIDE RECORDS SUMMARY | 2025-01-10 13:46 | XMS_ITS | Clinical Summary ---
Author Organization [facility] Address [address] [place] [id number] Care Team Providers Care Orthodontist Vice President Name Role Phone Unavailable Primary Care Provider [...] - 1-dose 75+ series) 09/13/2010 COVID-19 Vaccine ( - 2024-2 6 season) 2024 Influenza Adult (#1) 2024 Hepatitis A Vaccines Aged Out No long er eligible based on patient's age to complete this topic Meningococcal B Vaccine Aged Out No l onger eligible based on patient's age to complete this topic Meningococcal Vaccine Aged Out No minh jacqueline eligible based on patient's age to complete this topic RSV Immunizations Under 20 Months Aged Out No longer eligible based on patient's age to complete this topic
== END 2025-01-10 12:31 | disposition home or self-care (01) ==
LOC: ANHGOSHLAB 12:31
PROVIDERS: PCP Family Medicine; Visit Provider Nurse Practitioner Family
DX: N30.90 Cystitis, unspecified without hematuria (principal)
CPT/HCPCS: 87086

== ENCOUNTER 2025-01-31 09:05 | Outpatient (NON) | payer MEDICARE, SELFPAY ==
--- OUTSIDE RECORDS SUMMARY | 2025-01-31 11:41 | XMS_ITS | Clinical Summary ---
Author Organization [facility] Address [address] [address] Phone Care Team Providers Care Supervisor Park Workers Name Role Phone Matilde Matias MD Primary [...] Comments Hepatitis C Virus (HCV) Screening 1935 Varicella Immunization (1 of 2 - 13+ 2-dose series) 09/13/1948 Zoster Immunization (2 of 3) 07/09/2010 05/14/2010 Respiratory Syncytial Virus (RSV) Immunization (Adult) (1 - 1-dose 75+ series) 09/13/2010 Influenza Immunization (#1) 11/13/202412/13, 01/09/2019, 12/13/2017, Additional history exists SARS-COV-2 Immunization (2024- season) 2024 01/15/2021, 05/21/2020, 04/17/2020 Pneumococcal Immunization [...] age to complete this topic Insurance MEDICARE [facility] Care Teams Supervisor Park Workers Relationship Specialty Start Date End Date Matilde Matias MD PCP - General Family Medicine 07/01/18
--- OUTSIDE RECORDS SUMMARY | 2025-01-31 11:41 | XMS_ITS | Clinical Summary ---
Author Organization [facility] Address [address] [place] [id number] Care Team Providers Care Data Analytics Architect Name Role Phone Unavailable Primary Care Provider [...]
--- OUTSIDE RECORDS SUMMARY | 2025-01-31 11:41 | XMS_ITS | Clinical Summary ---
Author Organization [facility] Address [address] [place] [address] Care Team Providers Care Fibre Optics Jointer Name Role Phone Matilde Matias MD Primary Care Provider Allergies Active Allergy Reactions Criticality Noted Date Comments Ibuprofen Hives High 02/15/2019 Pseudoephedrine Hives High 02/15/2019 Medications atorvastatin (LIPITOR) 10 mg tablet atorvastatin 10 mg tablet 9 Active gabapentin (NEURONTIN) 100 mg capsule gabapentin 100 mg capsule 9 Active melatonin 10 mg Capsule 9 Active multivitamin,t a-szpv-rs-min (THERA-M) 27-0.4 mg Tablet Take 1 Tablet [...] office injection administered by the provider Active vxd-I4-awa09-z zuv-ltl-zmeh-b or 600 mg calcium- 800 unit-50 mg Tablet 9 Active lidocaine PF 1% (XYLOCAINE MPF) Solution lidocaine (PF) 10 mg/mL (1 %) injection solution In office injection administered by the provider Active omeprazole (PriLOSEC) 20 mg Capsule, Delayed Release(E.C.) 9 Active acetaminophen (Tylenol) 325 mg Capsule 9 Active omeprazole (PriLOSEC) 20 mg Capsule, Delayed Release(E.C.) 9 Active nmb-I2-nzk60-z ved-rct-uxpq-b or 600 mg calcium- 800 unit-50 mg [...] Tablet per tablet Centrum Silver Activ e No-G8-cgk-zinc -gka-zvpo-fspf n (Caltrate 600-D Plus Minerals) 600 mg [...] on file 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
[2025-01-31 13:43] LABS: Add Urine Microscopic? YES; Appearance Urine Turbid (Clear); Glucose Urine UA Negative (Negative); Leukocyte Esterase Ur 3+ LEU/UL (Negative); Need Manual Microscopic Reviewed; Nitrate Urine Negative (Negative); Non Pathogenic Casts >20; Specific Grav Ur 1.011 (1.001-1.035)
== END 2025-01-31 09:06 | disposition home or self-care (01) ==
PROVIDERS: PCP Family Medicine; Visit Provider Nurse Practitioner Family
DX: N39.0 Urinary tract infection, site not specified (principal); B96.5 Pseudomonas (aeruginosa) (mallei) (pseudomallei) as the cause of diseases classified elsewhere
CPT/HCPCS: 81001; 87086